=== PATIENT | female | born 1985 | race Two or more races ===

== ENCOUNTER 2024-10-16 14:14 | Inpatient (IN) | payer BC, OTHER ==
[~2024-10-16] VITALS: Ht 162.6 cm; Wt 66.9 kg
[2024-10-16 14:28] VITALS: PULSE 125; RESP 12; O2SAT 97
[2024-10-16] MEDS: SODIUM CHLORIDE 0.9% 1,000 ML IV ONE (14:30)
--- NOTE | 2024-10-16 14:37 | ED.PDOC ---
GI ASSESSMENT HPI Comments abdominal pain Chief Complaint: Shortness of Breath Comments pt has a history of hiatal hernia repair, gastric sleeve done at [facility] 7 years ago. for 1 week, she's had no BM, took laxative, and now has diarrhea. no nausea or vomiting. has abdominal distension and pain Time Seen by MD: 14:17 Reviewed Notes: Nurses Notes, Wallpaper Printer Notes, Medications, Allergies Allergies: Coded Allergies: Doxycycline (Verified Allergy, Unknown, 10/16/24) Information Source: Patient, Emergency Med Personnel Mode of Arrival: EMS Timing: Weeks (1) Quality: Cramping Vomitus: None Stool: Watery Severity: Moderate Recent: Laxative Use Recent Hx of: None Pain Location: Diffuse Modifying Factors: Nothing Associated sign and symptoms: Diarrhea, Constipation, Abdominal Pain Past Medical History PAST MEDICAL HISTORY: Asthma Past Medical History (Other): gastric sleeve, hiatal hernia repair, GBS Surgical History (Other): right knee, gastric sleeve, hiatal hernia [employer] History: No Pertinent [employer] History Family History Family History: Reviewed,noncontributory to illness, No family hx of Cancer, No family hx of DM, No family hx of Heart izabella, No family hx of HTN, No family hx ofKidney izabella, No family hx of Liver izabella, No family hx of Lung izabella, No family hx of Stroke Social History Smoker: Non-Smoker Alcohol: Denies ETOH Use Drugs: Denies Drug Use Constitutional: denies: chills, diaphoresis, fatigue, fever, malaise, sweats, weakness, others EENTM: denies: blurred vision, double vision, ear bleeding, ear discharge, ear drainage, ear pain, ear ringing, eye pain, eye redness, hearing loss, mouth pain, mouth swelling, nasal discharge, nose bleeding, nose congestion, nose pain, photophobia, tearing, throat pain, throat swelling, voice changes, others Respiratory: denies: cough, hemoptysis, orthopnea, SOB at rest, shortness of breath, SOB with excertion, stridor, wheezing, others Cardiovascular: denies: chest pain, dizzy spells, diaphoresis, Dyspnea on exertion, edema, irregular heart beat, left arm pain, lightheadedness, palpitations, PND, syncope, others Gastrointestinal: reports: abdomen distended, abdominal pain, constipated, diarrhea; denies: blood streaked bowels, dysphagia, difficulty swallowing, hematemesis, melena, nausea, poor appetite, poor fluid intake, rectal bleeding, rectal pain, vomiting, others Genitourinary: denies: abnormal vagina bleeding, burning, dyspareunia, dysuria, flank pain, frequency, hematuria, incontinence, pain, , vagina discharge, urgency, others Neurological: denies: dizziness, fainting, headache, left sided numbness, left sided weakness, numbness, paresthesia, pre-existing deficit, right sided numbness, right sided weakness, seizure, speech problems, tingling, tremors, weakness, others Musculoskeletal: denies: back pain, gout, joint pain, joint swelling, muscle pain, muscle stiffness, neck pain, others Integumetry: denies: bruises, change in color, change in hair/nails, dryness, laceration, lesions, lumps, rash, wounds, others Allergic/Immunocompromised: denies: Difficulty Healing, Frequent Infections, Hives, Itching, others Hematologic/Lymphatic: denies: anemia, blood clots, easy bleeding, easy bruising, swollen glands, others Endocrine: denies: excessive hunger, excessive sweating, excessive thirst, excessive urination, flushing, intolerance to cold, intolerance to heat, unexplained weight gain, unexplained weight loss, others Psychiatric: denies: anxiety, bipolar disorder, depression, hopeless, panic disorder, schizophrenia, sleepless, suicidal, others All Other Systems: Reviewed and Negative Physical Exam General Appearance: No Apparent Distress, Normal HEENT: Normal ENT Inspection, Pharynx Normal, TMs Normal Neck: Full Range of Motion, Non-Tender, Normal, Normal Inspection Respiratory: Chest Non-Tender, Lungs Clear, No Accessory Muscle Use, No Respiratory Distress, Normal Breath Sounds Cardiovascular: No Edema, No JVD, No Murmur, No Gallop, Normal Peripheral Pulses, Regular Rate/Rhythm Breast Exam: Deferred Gastrointestinal: Abnormal Bowel Sounds (high pitch BS), Diffuse, Distended, No Organomegaly, No Pulsatile Mass, Soft, Tenderness Genitalia: Deferred Pelvic: Deferred Rectal: Deferred Extremities: No calf tenderness, Normal capillary refill, Normal inspection, Normal range of motion, Non-tender, No pedal edema Musculoskeletal : Apperance: Normal Neurologic: Alert, concrete 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 Was a procedure done?: No GI differential Dx Differential Diagnosis: Appendicitis, Complete , Incomplete , Inevitable , Missed , Threatened , Abruptio placentae, Angina/MN, Aortic dissection, Bowel Obstruction, Cholangitis, Cholecystitis, Constipation, Diverticular disease, Ectopic , Gastritis/PUD, Ga stroenteritis, GI hemorrhage, Hernia, Hepatitis, Inflammatory BD, Ischemic Bowel, Ovarian cyst/torsion, Pancreatitis, Dehydration, Electrolyte Imbalance, Food Poisoning, , Bacterial, Parasitic, Viral, Hypovolemia, Impaction, Malnutrition, Renal Failure, Ischemic Bowel, Stress Ulcer, Kidney Stone X-Ray, Labs, Meds, VS Vital Signs Date Time Temp Pulse Resp B/P (MAP) Pulse Ox O2 Delivery O2 Flow Rate FiO2 10/16/24 17:04 123 12 95/62 10/16/24 15:47 89/47 10/16/24 15:33 111 10/16/24 15:00 97.5 114 13 70/40 (50) 96 97.5 10/16/24 14:28 97.7 125 12 68/38 (48) 97 97.7 10/16/24 14:28 125 12 97 Nasal Cannula* 6 44 10/16/24 14:18 124 10/16/24 14:16 96.7 130 22 54/45 (48) 100 96.7 Lab Test 10/16/24 16:34 10/16/24 14:43 Range/Units Lactic Acid Level 6.6 *H 0.4-2.0 mmol/L White Blood Count 10.8 4.4-10.8 10^3/uL Red Blood Count 3.57 L 4.0-5.20 10^6/uL Hemoglobin 9.9 L 12.2-16.2 g/dL Hematocrit 31.8 L 36.0-46.0 % Mean Corpuscular Volume 89.0 80.0-100.0 fL Mean Corpuscular Hemoglobin 27.8 L 28.0-32.0 pg Mean Corpuscular Hemoglobin Concent 31.3 L 32.0-36.0 g/dL Red Cell Distribution Width 22.3 H 11.8-14.3 % Platelet Count 116 L 140-450 10^3/uL Mean Platelet Volume 7.8 6.9-10.8 fL Neutrophils (%) (Auto) 37.0-80.0 % Lymphocytes (%) (Auto) 10.0-50.0 % Monocytes (%) (Auto) 0.0-12.0 % Basophils (%) (Auto) 0.0-2.0 % Neutrophils # (Auto) 1.6-8.6 10 ^3/uL Lymphocytes # (Auto) 0.4-5.4 10 ^3/uL Monocytes # (Auto) 0-1.3 10 ^3/uL Differential Total Cells Counted 100.0 100 Neutrophils % (Manual) 79 37.0-80.0 Band Neutrophils % (Manual) 12 Lymphocytes % (Manual) 5 L 10.0-50.0 Monocytes % (Manual) 3 0-12 Eosinophils % (Manual) 0 0-7 Basophils % (Manual) 0 0.0-2.0 Metamyelocytes % (manual) 1 Myelocytes % (Manual) 0 Promyelocytes % (Manual) 0 Blast Cells % (Manual) 0 Nucleated Red Blood Cells 1.0 % Reactive Lymphocytes 0 Platelet Estimate Decreased Hypochromasia (manual) Slight Anisocytosis (manual) Moderate Sodium Level 133 L 136-145 mmol/L Potassium Level 3.5 3.5-5.1 mmol/L Chloride Level 101 98-107 mmol/L Carbon Dioxide Level < 10 *L 20-31 mmol/L Anion Gap 22.88859 H 5-15 Blood Urea Nitrogen 31 H 9-23 mg/dL Creatinine 2.38 H 0.550-1.02 mg/dL Glomerular Filtration Rate Calc 26 >90 mL/min BUN/Creatinine Ratio 13.0 10.0-20.0 Serum Glucose 111 H 74-106 mg/dL Calcium Level 7.4 L 8.7-10.4 mg/dL Total Bilirubin 1.4 H 0.2-1.0 mg/dL Aspartate Amino Transferase (AST) 601 H 13-40 U/L Alanine Aminotransferase (ALT) 175 H 7-40 U/L Alkaline Phosphatase 208 H 46-116 U/L Troponin I High Sensitivity 36 *H </=34 ng/L Total Protein 5.4 L 5.7-8.2 g/dL Albumin 3.0 L 3.2-4.8 g/dL Lipase 547 H 12-53 U/L Current Medications Medications (Trade) Dose Ordered Sig/Kelvin Route Start Time Stop Time Status Last Admin Ondansetron HCl (Zofran) 4 mg ONCE ONCE IV 10/16/24 14:45 10/16/24 15:04 DC 10/16/24 15:46 Fentanyl Citrate 12.5 mcg ONCE ONCE IV 10/16/24 14:45 10/16/24 15:04 DC 10/16/24 15:47 Sodium Chloride 1,000 ml @ 1,000 mls/hr Q1H ONCE IV 10/16/24 14:45 10/16/24 15:44 DC 10/16/24 14:30 Acetaminophen (Ofirmev) 1,000 mg ONCE ONCE IV 10/16/24 15:15 10/16/24 15:25 DC 10/16/24 15:29 Calcium Gluconate/ Sodium Chloride 50 ml @ 100 mls/hr ONCE ONCE IV 10/16/24 16:00 10/16/24 16:29 DC 10/16/24 16:00 Lactated Ringer's 1,650 ml @ 1,650 mls/hr ONCE ONCE IV 10/16/24 16:00 10/16/24 16:59 DC 10/16/24 16:15 Metronidazole 100 ml @ 100 mls/hr ONCE ONCE IV 10/16/24 16:00 10/16/24 16:59 DC 10/16/24 17:15 Morphine Sulfate 2 mg ONCE ONCE IV 10/16/24 16:00 10/16/24 16:12 DC 10/16/24 17:04 Time of 1ST Reevaluation: 17:28 Reevaluation 1ST: Improved Time of 2ND Reevaluation: 17:38 Reevaluation 2ND: Improved Patient Education/Counseling: Diagnosis, Treatment, Prognosis, Need For Follow Up Family Education/Counseling: Diagnosis, Treatment, Prognosis, Need For Follow Up Additional Information corrected calcium for albumin is 8.2mg/dl, which is still low, but much better than uncorrected. i will order calcium replacement, as hypocalcemia can worsen hypotension as well Severe sepsis was suspected/recognized at time 0:1416 source of infection recognized/suspected:intraabdominal SIRS:hypotensive, tachycardic, rapid respiration Evidence of organ failure:elevated cr, hypotensive iv fluids given:1650cc LA started at 1650 lactic acid drawn at:1600 antibiotics given at:flagyl, zosyn, vanco 1600 blood culture drawn at:1553 septic shock was/ was not present reassessment at:1705- improved sbp 95. pt responded to IVF Sepsis Sepsis Reasesment Focused Exam Sepsis focused exam: focus exam completed (improved bp), time: (1730) Departure 1 Departure Time of Disposition: 17:40 Impression: Primary Impression: Severe sepsis Additional Impressions: Acalculous cholecystitis Pancreatitis Qualified Codes: K85.10 - Biliary acute pancreatitis without necrosis or infection Acute renal failure Qualified Codes: N17.9 - Acute kidney failure, unspecified Transaminitis Disposition: ADMITTED INPATIENT Admit to: ICU Condition: Serious Discharged With: Self Critical Care Note Critical Care Time?: Yes (55 min-critical care time only) Critical care comment: due to concerns for deterioration of patient's condition, the care required my highest level of attention and readiness. i assessed the patient's condition, reviewed relevant documents, communicated with medical personnel, ordered the proper tests and treatments, reassessed for results and response to treatments, spoke to family and consultants and formulated a plan of care Stability Stability form required: JOSE ANGEL Fontenot MD October 16, 2024 14:37
[2024-10-16 14:54] LABS: Hematocrit 31.8 % (36.0-46.0); Hemoglobin 9.9 g/dL (12.2-16.2); Mean Corpuscular Hemoglobin 27.8 pg (28.0-32.0); Mean Corpuscular Hgb Conc. 31.3 g/dL (32.0-36.0); Platelet Count (auto) 116 10^3/uL (140-450); Red Blood Cells 3.57 10^6/uL (4.0-5.20); White Blood Cell 10.8 10^3/uL (4.4-10.8)
[2024-10-16 14:59] LABS: Red Cell Distribution Width 22.3 % (11.8-14.3)
[2024-10-16 15:01] LABS: Basophils % (manual) 0 (0.0-2.0); Blast Cells 0; Eosinophils % (manual) 0 (0-7); Myelocytes % 0; Promyelocytes % 0; Reactive Lymphocytes 0
[2024-10-16 15:06] LABS: Anion Gap 22.00001 (5-15); Chloride 101 mmol/L (98-107)
[2024-10-16 15:08] LABS: Band Neutrophils % (manual) 12; Lymphocytes % (manual) 5 (10.0-50.0); Metamyelocytes % 1; Monocytes % (manual) 3 (0-12)
[2024-10-16 15:09] LABS: Anisocytosis Moderate; Hypochromia Slight; Platelet Estimate Decreased
[2024-10-16 15:21] LABS: Alanine Aminotransferase 175 U/L (7-40); Alkaline Phosphatase 208 U/L (46-116); Aspartate Aminotransferase 601 U/L (13-40); Bilirubin, Total 1.4 mg/dL (0.2-1.0); Blood Urea Nitrogen 31 mg/dL (9-23); Calcium 7.4 mg/dL (8.7-10.4); Glucose 111 mg/dL (74-106); Potassium 3.5 mmol/L (3.5-5.1); Sodium 133 mmol/L (136-145); Total Protein 5.4 g/dL (5.7-8.2)
[2024-10-16 15:22] LABS: Carbon Dioxide < 10 mmol/L (20-31); Lipase 547 U/L (12-53)
[2024-10-16] MEDS: ACETAMINOPHEN IV 1000 MG/100ML (10MG/ML) IV ONE (15:29)
[2024-10-16] MEDS: ONDANSETRON HCL 4 MG/2 ML VIAL IV ONE ×2 (15:46→16:13)
[2024-10-16] MEDS: fentaNYL CITRATE 100 MCG/2 ML VL IV ONE (15:47)
[2024-10-16] MEDS: CALCIUM GLUC 1,000mg/50ml-NS 50 ML IV ONE (16:00)
[2024-10-16] MEDS: LACTATED RINGER'S 1,650 ML IV ONE (16:15)
[2024-10-16] MEDS ORDERED: VANCOMYCIN PER PHARMACY 0 MG IV SCH (16:30)
--- NOTE | 2024-10-16 16:52 | DVH ---
INDICATION: r/o cholecystitis TECHNIQUE: Multiple real-time sonographic images of the abdomen were obtained. COMPARISON: None Comments: Per boom man, exam is difficult due to patient body habitus and bowel gas. FINDINGS: Liver is homogenous in echogenicity. Normal hepatopetal flow in the portal vein. Trace perihepatic fl uid. The liver measures 19.6 cm. No intrahepatic biliary ductal dilatation is noted. Gallbladder is moderately distended with a volume of 161 mL. Intraluminal echogenicity could be relat ed to artifact or sludge. No evidence of shadowing gallstones. Gallbladder wall thickness is within n ormal limits and measures 2.5 mm. No evidence of pericholecystic fluid. Negative sonographic calderón' s sign. The common duct measures 0.6 cm, upper limits of normal. The right kidney measures 10.1 cm. No hydronephrosis. The left kidney measures 9.6 cm. No hydronephro sis. Small amount of left perinephric fluid. The spleen measures 9 cm, within normal limits. The echogenicity is within normal limits. The pancreas is not well visualized due to obscuration from bowel gas. Aorta and IVC are poorly visualized due to overlying bowel gas. IMPRESSION: 1. Gallbladder is moderately distended with internal sludge and/or artifact. No evidence of cholelit hiasis or cholecystitis. 2. No hydronephrosis. 3. Trace perihepatic and left perinephric fluid, nonspecific. 4. Mild hepatomegaly. 5.
[2024-10-16] MEDS: MORPHINE SULFATE INJ 2 MG/ml SYRG IV ONE ×2 (17:04→22:52)
[2024-10-16 17:14] LABS: Lactic Acid w/Reflex 6.6 mmol/L (0.4-2.0)
[2024-10-16] MEDS: metroNIDAZOLE 500MG/100ML 100 ML IV ONE (17:15)
[2024-10-16] MEDS: PIPERACILLIN-TAZOB 3.375GM 100 ML IV ONE (18:30)
[2024-10-16 19:30] VITALS: PULSE 125; RESP 21; O2SAT 92
[2024-10-16] MEDS: VANCOMYCIN 1GM/200ML PM 200 ML IV ONE (19:44)
[2024-10-16] MEDS: ASPirin 300 MG RECTAL SUPP PR ONE (19:47)
[2024-10-16] MEDS: LACTATED RINGER'S 1,000 ML IV ONE (20:45)
[2024-10-16 21:09] LABS: Chloride 103 mmol/L (98-107); Potassium 3.5 mmol/L (3.5-5.1)
[2024-10-16 21:10] LABS: Anion Gap 15 (5-15)
[2024-10-16 21:13] LABS: Calcium 7.2 mg/dL (8.7-10.4); Carbon Dioxide 14 mmol/L (20-31); Sodium 132 mmol/L (136-145)
[2024-10-16 21:15] LABS: BUN/Creatinine Ratio 13.2 (10.0-20.0); Glucose 98 mg/dL (74-106)
[2024-10-16] MEDS ORDERED: FOLIC ACID 1 MG in D5W 5% 50 ML INJ ONE (21:15)
[2024-10-16 21:21] LABS: Blood Urea Nitrogen 27 mg/dL (9-23)
[2024-10-16 21:34] LABS: INR 1.54 (0.9-1.15); Partial Thromboplastin Time 37.2 SEC (24.5-34.5); Prothrombin Time 15.6 sec (9.3-11.8)
--- NOTE | 2024-10-16 21:54 | DVH ---
Exam: CT CT AB PEL WO CON-NO ORAL OR IV History: r/o sbo Comparison Study: None TECHNIQUE: Multidetector CT of the abdomen was performed from lung bases to pubic symphysis. Imaging was performed without IV contrast. Axial, coronal and sagittal multiplanar reformats were obtained fr om the axial data set by the technologist. Radiation Dose Information: CT Dose: CTDI volume is 10.51 mGy. Dose-length product is 637.27 mGy*cm FINDINGS: Evaluation of solid organs is limited due to lack of intravenous contrast use. Findings: Lung Bases: Airspace disease noted in the posterior costophrenic angles bilaterally with dependent at electasis and small left pleural effusion. Findings are worse on the left than the right. Normal he art size. No pleural or pericardial effusion. Liver: The liver is normal in size. No focal lesions. Pneumobilia in the left lobe of the liver. Ca n not entirely exclude portal air Gallbladder and Biliary Tree: Unremarkable Spleen: Unremarkable Pancreas: Inflammatory changes in the mesenteric fat around the pancreas with thickening of Gerota's fascia on the left. Findings may represent pancreatitis correlate with lab findings. Adrenal Glands: Unremarkable Kidneys: Kidneys are grossly normal without calculi or hydronephrosis. Bladder: Grossly unremarkable for degree of distention. Bowel: The stomach is grossly normal in appearance. Small bowel and colon are normal in caliber and d istribution. Small bowel is of normal size and caliber. There is gaseous distention of the colon with stool noted. A focal point of obstruction in the colon is not apparent. Findings may be due to fecal impaction and stool. The appendix is not visualized; however, no secondary findings of acute appendi citis identified. Ascites: Scattered small amount of ascites Lymphadenopathy: No mesenteric, retroperitoneal or periportal lymphadenopathy. Abdominal Wall and Mesentery: Unremarkable. Vasculature: The visualized abdominal aorta is normal in size and caliber. Evaluation of abdominal a nd pelvic vessels is limited due to lack of intravenous contrast. Pelvic Organs: Unremarkable Musculoskeletal: No aggressive focal bony lesions, acute fractures or dislocation. Soft tissues: Unremarkable IMPRESSION: 1. Questionable peripancreatic inflammatory changes correlate with pancreatic labs for pancreatitis. 2. Small amount of ascites scattered throughout the abdomen and pelvis. 3. Air within the ductal system of the left lobe of the liver may represent pneumobilia from recent b iliary procedure or or possible portal venous air. 4. Questionable pneumocystis coli in the right colon. 5. Stool and gaseous distention of the colon is noted from the cecum to the rectum. A focus of abnorm al narrowing or obstruction is not apparent at this time. Consider barium enema or colonoscopy for fu rther evaluation. 6. Also correlate for possible history of constipation. No findings to suggest small bowel obstruction. Radiation optimization: All CT scans at this facility use at least one of these dose optimization azam hniques: automated exposure control mA and/or kV adjustment per patient size (includes targeted exam s where dose is matched to clinical indication) or iterative reconstruction.
[2024-10-16] MEDS ORDERED: VANCOMYCIN 1GM/200ML PM 200 ML IV SCH (22:00)
[2024-10-16] MEDS ORDERED: PIPERACILLIN-TAZOB 3.375GM 100 ML IV SCH (22:00)
[2024-10-16] MEDS: PIPERACILLIN-TAZOB 3.375GM 100 ML IV SCH (22:13)
[2024-10-16] MEDS: PANTOPRAZOLE 40 MG/10 ML VIAL INJ IV SCH (22:14)
[2024-10-16 22:15] LABS: Alanine Aminotransferase 185 U/L (7-40); Aspartate Aminotransferase 605 U/L (13-40)
[2024-10-16] MEDS: THIAMINE 100mg/ml INJ (200mg/2ml VIAL) IM ONE (22:30)
[2024-10-16 22:32] LABS: Lactic Acid w/Reflex 3.3 mmol/L (0.4-2.0)
[2024-10-16] MEDS: HYDROCORTISONE SOD SUCC 100 MG/2ML INJ VIAL IV ONE (22:41)
[2024-10-16] MEDS ORDERED: MORPHINE SULFATE INJ 2 MG/ml SYRG IV PRN (22:45)
[2024-10-16 23:10] LABS: Triglycerides 856 mg/dL (< 150)
[2024-10-16 23:12] LABS: Cholesterol 127 mg/dL (< 200)
[2024-10-16 23:15] LABS: HDL Cholesterol 6 mg/dL (40-59)
[2024-10-17] VITALS (108 sets, daily range): BP systolic 83–127; BP diastolic 52–84; PULSE 83–134; RESP 15–22; TEMP 98.4–99.5; O2SAT 80–100
[2024-10-17] MEDS: ALBUMIN 25% 100 ML IV ONE (00:10)
[2024-10-17] MEDS: MEROPENEM 1GM IVPB 50 ML IV ONE (00:10)
[2024-10-17] MEDS: LACTATED RINGER'S 1,000 ML IV SCH ×2 (00:31→19:10)
--- NOTE | 2024-10-17 00:33 | DVH ---
CT SCAN CHEST WITHOUT CONTRAST CLINICAL HISTORY: POSS DISEASE IN LUNG BASE TECHNIQUE: Helical axial scans are obtained from the thoracic inlet to the upper abdomen without intr avenous contrast injection. Coronal and sagittal reformatted images were generated from thin-section reconstructions. One or more of the following radiation dose reduction techniques were used for this examination: automated exposure control, adjustment of the mA and/or kV according to patient size, us e of iterative reconstruction technique. COMPARISON: Abdomen and pelvis CT obtained earlier the same day. FINDINGS: Evaluation of vascular and other mediastinal structures is limited due to lack of contrast administra tion. Mediastinum: Heart is normal in size. No mediastinal adenopathy. Trace pericardial fluid / thickening . Lung parenchyma: Dependent atelectasis/ consolidation in the lower lobes. A few scattered air opaciti es in the upper lobe may reflect additional atelectasis/scarring. Pleura: Small bilateral pleural effusions. Chest wall/axillae: No axillary lymphadenopathy noted. IMPRESSION: Small bilateral pleural effusions with dependent atelectasis/consolidation in the lower lobes.
--- NOTE | 2024-10-17 01:13 | DVHINCON2 ---
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 Patient has been taking laxatives for past several days resulting in some diarrhea. She is also on antibiotics currently for respiratory infection. In the emergency room patient was found to be hypotensive with a systolic in the 80s with tachycardia. CT showed possible ischemic bowel therefore surgical consultation was requested. Past Medical History Guillain-Folsom syndrome. Costilla's disease. Hypertension. Asthma. Past Surgical History Laparoscopic hiatal hernia repair. Laparoscopic gastric sleeve. Arthroscopic knee surgery. Family History Noncontributory Social History History of heavy alcohol use now down to two drinks a day. Denies tobacco or IV drug use. Allergies: Coded Allergies: Doxycycline (Verified Allergy, Unknown, 10/16/24) Current Medications Current Medications Medications (Trade) Dose Ordered Sig/Kelvin Route PRN Reason Start Time Stop Time Status Last Admin Vancomycin HCl 200 ml @ 200 mls/hr Q12HR IV 10/16/24 22:00 UNV Piperacillin Sod/ Tazobactam Sod 100 ml @ 25 mls/hr Q8HR IV 10/16/24 22:00 10/16/24 20:47 DC Vancomycin HCl 0 ml @ 0 mls/hr UD IV 10/16/24 16:30 Enoxaparin Sodium (Lovenox) 40 mg DAILY SC 10/17/24 10:00 UNV Piperacillin Sod/ Tazobactam Sod 100 ml @ 25 mls/hr Q8HR IV 10/16/24 22:00 10/16/24 22:40 DC 10/16/24 22:13 Enoxaparin Sodium (Lovenox) 30 mg DAILY SC 10/17/24 10:00 Hydrocortisone Sodium Succinate (Solu-CORTEF INJECTION) 50 mg Q6HR IV 10/17/24 03:00 Pantoprazole Sodium (Protonix) 40 mg DAILY IV 10/16/24 21:00 10/16/24 22:14 Thiamine HCl 100 mg DAILY IV 10/17/24 10:00 Folic Acid 1 mg/ Dextrose 50.2 ml @ 200.8 mls/ hr DAILY INJ 10/17/24 10:00 Morphine Sulfate 2 mg Q2HPRN PRN IV SEVERE PAIN (7-10 PAIN SCALE) 10/16/24 22:45 Meropenem 50 ml @ 17 mls/hr Q8HR IV 10/17/24 06:00 UNV Metronidazole 100 ml @ 100 mls/hr Q8HR IV 10/17/24 06:00 10/17/24 00:10 DC Lactated Ringer's 1,000 ml @ 125 mls/hr Q8H IV 10/16/24 23:45 10/17/24 00:31 Vital Signs Vital Signs Date Time Temp Pulse Resp B/P (MAP) Pulse Ox O2 Delivery O2 Flow Rate FiO2 10/16/24 18:14 119 10/16/24 18:00 14 87/48 (61) 95 10/16/24 15:00 97.5 97.5 10/16/24 14:28 Nasal Cannula* 6 44 Physical Exam GEN: Age-appropriate female thickening sickly but at alert and oriented. HEENT: Normocephalic atraumatic. Moist mucous membranes. Anicteric sclerae. CV: Tachycardic but regular rhythm Respiratory: Coarse breath sounds Abdominal exam: Distended abdomen with diffuse tenderness to palpation with guarding and rebound. CT of the abdomen and pelvis: Questionable peripancreatic inflammatory changes. Small amount of ascites. Air within the ductal system of the left lobe of the liver consistent with pneumobilia. Questionable pneumatosis coli in the right colon. Stool and gaseous distention of the colon from cecum to the rectum. Labs/Diagnostic Data Labs Test 10/16/24 22:38 10/16/24 20:48 10/16/24 14:43 Range/Units Lactic Acid Level 2.3 *H 0.4-2.0 mmol/L Triglycerides Level 856 H < 150 mg/dL Cholesterol Level 127 < 200 mg/dL LDL Cholesterol < 100 mg/dL HDL Cholesterol 6 L 40-59 mg/dL Prothrombin Time 15.6 H 9.3-11.8 sec Prothrombin Time INR 1.54 H 0.9-1.15 Activated Partial Thromboplast Time 37.2 H 24.5-34.5 SEC Sodium Level 132 L 136-145 mmol/L Potassium Level 3.5 3.5-5.1 mmol/L Chloride Level 103 98-107 mmol/L Carbon Dioxide Level 14 L 20-31 mmol/L Anion Gap 15 5-15 Blood Urea Nitrogen 27 H 9-23 mg/dL Creatinine 2.05 H 0.550-1.02 mg/dL Glomerular Filtration Rate Calc 31 >90 mL/min BUN/Creatinine Ratio 13.2 10.0-20.0 Serum Glucose 98 74-106 mg/dL Calcium Level 7.2 L 8.7-10.4 mg/dL Iron Level 9 L 50-170 ug/dL Total Iron Binding Capacity 303 250-425 ug/dL Percent Iron Saturation 3.0 L 15-50 % Ferritin 127.5 10-291 ng/mL Gamma Glutamyl Transpeptidase 1044 H <38 U/L Aspartate Amino Transferase (AST) 605 H 13-40 U/L Alanine Aminotransferase (ALT) 185 H 7-40 U/L Ammonia < 10 L 11-32 umol/L Troponin I High Sensitivity 134 *H </=34 ng/L C-Reactive Protein High Sensitivity 14.06 H <1.0 mg/dL Acetaminophen Level 10.0 10.0-20.0 UG/ML White Blood Count 10.8 4.4-10.8 10^3/uL Red Blood Count 3.57 L 4.0-5.20 10^6/uL Hemoglobin 9.9 L 12.2-16.2 g/dL Hematocrit 31.8 L 36.0-46.0 % Mean Corpuscular Volume 89.0 80.0-100.0 fL Mean Corpuscular Hemoglobin 27.8 L 28.0-32.0 pg Mean Corpuscular Hemoglobin Concent 31.3 L 32.0-36.0 g/dL Red Cell Distribution Width 22.3 H 11.8-14.3 % Platelet Count 116 L 140-450 10^3/uL Mean Platelet Volume 7.8 6.9-10.8 fL Neutrophils (%) (Auto) 37.0-80.0 % Lymphocytes (%) (Auto) 10.0-50.0 % Monocytes (%) (Auto) 0.0-12.0 % Basophils (%) (Auto) 0.0-2.0 % Neutrophils # (Auto) 1.6-8.6 10 ^3/uL Lymphocytes # (Auto) 0.4-5.4 10 ^3/uL Monocytes # (Auto) 0-1.3 10 ^3/uL Differential Total Cells Counted 100.0 100 Neutrophils % (Manual) 79 37.0-80.0 Band Neutrophils % (Manual) 12 Lymphocytes % (Manual) 5 L 10.0-50.0 Monocytes % (Manual) 3 0-12 Eosinophils % (Manual) 0 0-7 Basophils % (Manual) 0 0.0-2.0 Metamyelocytes % (manual) 1 Myelocytes % (Manual) 0 Promyelocytes % (Manual) 0 Blast Cells % (Manual) 0 Nucleated Red Blood Cells 1.0 % Reactive Lymphocytes 0 Platelet Estimate Decreased Hypochromasia (manual) Slight Anisocytosis (manual) Moderate Total Bilirubin 1.4 H 0.2-1.0 mg/dL Alkaline Phosphatase 208 H 46-116 U/L B-Type Natriuretic Peptide 7.91 0-100 pg/mL Total Protein 5.4 L 5.7-8.2 g/dL Albumin 3.0 L 3.2-4.8 g/dL Lipase 547 H 12-53 U/L Beta-Hydroxybutyric Acid 0.197 < 0.4 mmol/L Thyroid Stimulating Hormone (TSH) 4.18 0.55-4.78 uIU/mL Beta HCG, Quantitative 1.3 L 1.5-4.2 mIU/mL Plasma/Serum Blood Alcohol < 3.0 <10 mg/dL Assessment 1. Septic shock likely secondary to ischemic bowel 2. MORA Plan/Recommendation 1. Expiratory laparotomy with possible bowel resection possible colostomy/ileostomy Informed consent: The surgery and its risks including but not limited to infection, bleeding requiring possible blood transfusion with the risk of hepatitis or HIV infection, possible perioperative MA or stroke were explained to the patient and her . All questions were answered to their satisfaction. She expressed verbal understanding and wished to proceed with the surgery. Plan discussed with: Patient, Spouse MIRIAM ARCHIBALD MD October 17, 2024 01:13
--- NOTE | 2024-10-17 01:22 | DVHHP2 ---
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 She presented with 4-day history of constipation and abdominal pain, followed by diarrhea after taking laxatives. She also reported respiratory symptoms during this time. On presentation, she was tachycardic, hypoxemic, hypotensive (SBP in the 80s), and had signs of abdominal distension with diffuse tenderness. CT abdomen/pelvis revealed pneumatosis coli, pneumobilia, severely dilated colonic loops, and concern for colonic ischemia. Dr. Monroy was consulted and evaluated the patient at bedside around midnight. Emergency surgery was performed, including exploratory laparotomy with right hemicolectomy and ileostomy. She was transferred to the ICU postoperatively. 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) Asthma Hypertension Alcohol overuse Opioid overuse Hypertriglyceridemia Past Surgical History: Hiatal hernia repair Laparoscopic gastric sleeve Multiple spine surgeries Arthroscopic knee surgery Social History: Former heavy alcohol use, currently ~2 drinks/day Denies tobacco or IV drug use Labs: Lactic Acid: 2.3 mmol/L AST: 605, ALT: 1185, ALP: 208, GGT: 1044 Lipase: 138 CRP: 14.06 Troponin I: 134 Sodium: 132, CO2: 14, Anion gap: 15 Creatinine: 2.05, BUN: 27 Albumin: 3.0, Calcium: 7.2 CT Imaging: Pneumobilia, pneumatosis coli in the right colon, gaseous and stool distention throughout colon Small ascites, peripancreatic inflammation Review of Systems Review of Systems see HPI Allergies: Coded Allergies: Doxycycline (Verified Allergy, Unknown, 10/16/24) Medications Current Medications Medications Dose Ordered Sig/Kelvin Route Start Time Stop Time Status Last Admin Dose Admin Vancomycin HCl 200 ml @ 200 mls/hr Q12HR IV 10/16/24 22:00 UNV Vancomycin HCl 0 ml @ 0 mls/hr UD IV 10/16/24 16:30 Enoxaparin Sodium 40 mg DAILY SC 10/17/24 10:00 UNV Enoxaparin Sodium 30 mg DAILY SC 10/17/24 10:00 Hydrocortisone Sodium Succinate 50 mg Q6HR IV 10/17/24 03:00 Pantoprazole Sodium 40 mg DAILY IV 10/16/24 21:00 10/16/24 22:14 40 MG Thiamine HCl 100 mg DAILY IV 10/17/24 10:00 Folic Acid 1 mg/ Dextrose 50.2 ml @ 200.8 mls/ hr DAILY INJ 10/17/24 10:00 Morphine Sulfate 2 mg Q2HPRN PRN IV 10/16/24 22:45 Meropenem 50 ml @ 17 mls/hr Q8HR IV 10/17/24 06:00 UNV Lactated Ringer's 1,000 ml @ 125 mls/hr Q8H IV 10/16/24 23:45 10/17/24 00:31 125 MLS/HR Norepinephrine Bitartrate 250 ml @ 3.75 mls/hr Q24H IV 10/17/24 01:15 Exam Vital Signs Vital Signs Date Time Temp Pulse Resp B/P (MAP) Pulse Ox O2 Delivery O2 Flow Rate FiO2 10/16/24 18:14 119 10/16/24 18:00 14 87/48 (61) 95 10/16/24 15:00 97.5 97.5 10/16/24 14:28 Nasal Cannula* 6 44 Exam GEN: Alert, oriented, and sickly-appearing HEENT: Moist mucosa, anicteric sclerae CV: Tachycardic, regular rhythm Resp: Coarse breath sounds Abdomen: Distended, diffuse tenderness, guarding, rebound Labs/Xrays Labs Test 10/16/24 22:38 10/16/24 20:48 10/16/24 14:43 Range/Units Lactic Acid Level 2.3 *H 0.4-2.0 mmol/L Triglycerides Level 856 H < 150 mg/dL Cholesterol Level 127 < 200 mg/dL LDL Cholesterol < 100 mg/dL HDL Cholesterol 6 L 40-59 mg/dL Prothrombin Time 15.6 H 9.3-11.8 sec Prothrombin Time INR 1.54 H 0.9-1.15 Activated Partial Thromboplast Time 37.2 H 24.5-34.5 SEC Sodium Level 132 L 136-145 mmol/L Potassium Level 3.5 3.5-5.1 mmol/L Chloride Level 103 98-107 mmol/L Carbon Dioxide Level 14 L 20-31 mmol/L Anion Gap 15 5-15 Blood Urea Nitrogen 27 H 9-23 mg/dL Creatinine 2.05 H 0.550-1.02 mg/dL Glomerular Filtration Rate Calc 31 >90 mL/min BUN/Creatinine Ratio 13.2 10.0-20.0 Serum Glucose 98 74-106 mg/dL Calcium Level 7.2 L 8.7-10.4 mg/dL Iron Level 9 L 50-170 ug/dL Total Iron Binding Capacity 303 250-425 ug/dL Percent Iron Saturation 3.0 L 15-50 % Ferritin 127.5 10-291 ng/mL Gamma Glutamyl Transpeptidase 1044 H <38 U/L Aspartate Amino Transferase (AST) 605 H 13-40 U/L Alanine Aminotransferase (ALT) 185 H 7-40 U/L Ammonia < 10 L 11-32 umol/L Troponin I High Sensitivity 134 *H </=34 ng/L C-Reactive Protein High Sensitivity 14.06 H <1.0 mg/dL Acetaminophen Level 10.0 10.0-20.0 UG/ML White Blood Count 10.8 4.4-10.8 10^3/uL Red Blood Count 3.57 L 4.0-5.20 10^6/uL Hemoglobin 9.9 L 12.2-16.2 g/dL Hematocrit 31.8 L 36.0-46.0 % Mean Corpuscular Volume 89.0 80.0-100.0 fL Mean Corpuscular Hemoglobin 27.8 L 28.0-32.0 pg Mean Corpuscular Hemoglobin Concent 31.3 L 32.0-36.0 g/dL Red Cell Distribution Width 22.3 H 11.8-14.3 % Platelet Count 116 L 140-450 10^3/uL Mean Platelet Volume 7.8 6.9-10.8 fL Neutrophils (%) (Auto) 37.0-80.0 % Lymphocytes (%) (Auto) 10.0-50.0 % Monocytes (%) (Auto) 0.0-12.0 % Basophils (%) (Auto) 0.0-2.0 % Neutrophils # (Auto) 1.6-8.6 10 ^3/uL Lymphocytes # (Auto) 0.4-5.4 10 ^3/uL Monocytes # (Auto) 0-1.3 10 ^3/uL Differential Total Cells Counted 100.0 100 Neutrophils % (Manual) 79 37.0-80.0 Band Neutrophils % (Manual) 12 Lymphocytes % (Manual) 5 L 10.0-50.0 Monocytes % (Manual) 3 0-12 Eosinophils % (Manual) 0 0-7 Basophils % (Manual) 0 0.0-2.0 Metamyelocytes % (manual) 1 Myelocytes % (Manual) 0 Promyelocytes % (Manual) 0 Blast Cells % (Manual) 0 Nucleated Red Blood Cells 1.0 % Reactive Lymphocytes 0 Platelet Estimate Decreased Hypochromasia (manual) Slight Anisocytosis (manual) Moderate Total Bilirubin 1.4 H 0.2-1.0 mg/dL Alkaline Phosphatase 208 H 46-116 U/L B-Type Natriuretic Peptide 7.91 0-100 pg/mL Total Protein 5.4 L 5.7-8.2 g/dL Albumin 3.0 L 3.2-4.8 g/dL Lipase 547 H 12-53 U/L Beta-Hydroxybutyric Acid 0.197 < 0.4 mmol/L Thyroid Stimulating Hormone (TSH) 4.18 0.55-4.78 uIU/mL Beta HCG, Quantitative 1.3 L 1.5-4.2 mIU/mL Plasma/Serum Blood Alcohol < 3.0 <10 mg/dL Assessment/Plan Assessment/Plan #s/p right hemicolectomy + ileostomy #Toxic Megacolon #Sepsis due to colonic ischemia #Acute respiratory failure #Colonic ischemia #Stercoral colitis #Pancreatitis #Pneumobilia #Pneumonia? #Acute alcoholic hepatitis #Anemia #Metabolic acidosis: lactic acidosis #MORA due to VMN #Transaminitis #NSTEMI type 2 #Hypertriglyceridemia Hypocalcemia #Opioid overuse #Alcohol abuse #Louisa disease: chronic steroid use #H/ GBS #H/ Hypertension #H/ multiple spine surgeries Admit ICU status Urgent surgery consult: patient was taken to the OR by Dr Monroy: right hemicolectomy + ileostomy NPO LR 125 CC/H NG tube Levophed to maintain MAP above 65 Meropenem IV Morphine IV NG tube Hydrocortisone 100 mg once, continue 50 mg q6H Protonix IV Calcium IV given by ED Case discussed with Dr Sweeney Full code Plan discussed with: Patient, Other (rn) My Orders Orders - ESTELA SIDDIQUI RESIDENT Procedure Category Date Status Time Admit ADMIT 10/16/24 Transmitted 20:35 Code Status CODE 5/18/25 Transmitted 20:35 Vital Signs KIRA 10/16/24 In Process 20:35 Review Orders With KIRA 10/16/24 In Process Adm. 20:35 Npo (Nothing By DIET 10/17/24 Transmitted Mouth) Diet Breakfast Notify Of Changes KIRA 10/16/24 In Process From Base 20:35 Advance Directive KRIA 10/16/24 In Process 20:35 Patient Condition ORDERS 10/16/24 Transmitted 20:35 Allergies KIRA 10/16/24 In Process 20:35 Echo 2d Mode Cardiac US 10/16/24 Logged DOP 20:38 Urinalysis LAB 10/16/24 Logged 20:38 Drug Screen LAB 10/16/24 Logged 20:38 Urine Creatinine LAB 10/16/24 Logged 20:38 Urine Protein LAB 10/16/24 Logged 20:38 Urine Sodium LAB 10/16/24 Logged 20:38 Acute Hepatitis Panel LAB 10/16/24 In Process 20:39 Enoxaparin Sodium PHA 10/17/24 In Process (Lovenox) 10:00 Hydrocortisone PHA 10/17/24 In Process Succinate Inj 03:00 Pantoprazole PHA 10/16/24 In Process (Protonix) 21:00 Covid19 Antigen Eunice LAB 10/16/24 Logged Rapid Influenza A&B LAB 10/16/24 Logged 21:[address] 10/16/24 Resulted 22:01 * Surgical Consult CONS 10/16/24 Transmitted Morphine Sulfate PHA 10/16/24 In Process Injection 22:45 Meropenem 1gm Ivpb PHA 10/17/24 Pending (Merrem 1gm/ Ns) 06:00 Urine Bacterial MAGALY 10/16/24 Logged Culture 22:53 Lactated Ringer's PHA 10/16/24 In Process 23:45 Lipid Panel LAB 10/18/24 Verified 04:00 Folic Acid PHA 10/17/24 In Process 07:00 Norepinephrine 8 PHA 10/17/24 In Process Mg/250ml Kit 01:15 Ngt/Ogt ED NURSING 10/17/24 Transmitted Packedcell-Noactive BBK 10/17/24 Logged Bleeding 01:17 Frozen Plasma BBK 10/17/24 Logged 01:17 Type And Screen BBK 10/17/24 Logged 01:17 Date of Service: October 16, 2024 Billing Provider: FABIOLA SWEENEY MD Common Visit Codes: 24831-MVXPDMG INP/OBS CARE (HIGH), 25312-QGCLMTPW CARE 30- 74 MIN Secondary Visit Codes: 06122-[id number] CARE PLAN 30 MINUTES ESTELA SIDDIQUI RESIDENT October 17, 2024 01:22
[2024-10-17] MEDS ORDERED: MIDAZOLAM HCL 2MG/2ML 2ml VIAL (1mg/ml) ONE ×2 (01:31→03:33)
[2024-10-17] MEDS ORDERED: ONDANSETRON HCL 4 MG/2 ML VIAL ONE (01:31)
[2024-10-17] MEDS ORDERED: fentaNYL CITRATE 100 MCG/2 ML VL ONE ×2 (01:31→02:41)
[2024-10-17] MEDS ORDERED: ETOMIDATE (2MG/ML) 20ML VIAL IV ONE (01:31)
[2024-10-17] MEDS ORDERED: GLYCOPYRROLATE 0.2 MG/ML 1ML VIAL ONE (01:31)
[2024-10-17] MEDS ORDERED: LIDOCAINE 2% (LOCAL ANESTH.) PF 5ml SDV ONE (01:31)
[2024-10-17] MEDS ORDERED: PHENYLEPHRINE HCL 10 MG/ML VL ONE (01:31)
[2024-10-17] MEDS ORDERED: HYDROmorphone HCL 2 MG/ML VL/or syr ONE ×2 (01:31→03:54)
[2024-10-17] MEDS ORDERED: HYDROCORTISONE SOD SUCC 100 MG/2ML INJ VIAL ONE (01:31)
[2024-10-17] MEDS ORDERED: ePHEDrine SULFATE 50 MG/ML AMP ONE (01:31)
[2024-10-17] MEDS ORDERED: KETAMINE 50mg/ML 1ml syringe ONE ×2 (01:32→03:43)
[2024-10-17] MEDS ORDERED: ROCURONIUM 10MG/ML 10ML VIAL IV ONE (01:32)
[2024-10-17 01:39] LABS: Urine Bacteria None Seen /hpf (None Seen)
[2024-10-17] MEDS: SODIUM CHLORIDE 0.9% 1,000 ML IV ONE ×2 (01:42→12:54)
[2024-10-17 01:55] LABS: Urine Blood 2+ /uL (Negative); Urine Clarity Clear (Clear); Urine Color Yellow (Yellow); Urine Hyaline Cast FEW /lpf (0 - 2); Urine Mucus FEW (None Seen); Urine Protein, UAD 1+ (Negative); Urine Specific Gravity 1.027 (1.001-1.035); Urine Squamous Epithelial Cell FEW /hpf (<5); Urine Urobilinogen Normal (Negative); Urine WBC < 1 /HPF (0-5); Urine pH 5.5 (5.0-9.0)
[2024-10-17 01:58] LABS: Protein, Urine 114.1 mg/dL (1-14)
[2024-10-17 02:00] LABS: Phencyclidine Screen, Urine Neg (NEGATIVE)
[2024-10-17 02:01] LABS: Creatinine, Urine 87.6 mg/dL (30.0-125.0)
[2024-10-17 02:03] LABS: Amphetamine Screen, Urine Neg (NEGATIVE); Barbiturate Scree,Urine Neg (NEGATIVE); Benzodiazephine Screen, Urine Neg (NEGATIVE); Cannabinoid Screen, Urine Neg (NEGATIVE); Cocaine Screen, Urine Neg (NEGATIVE); Opiate Scree,Urine Pos (NEGATIVE)
[2024-10-17] MEDS: HYDROCORTISONE SOD SUCC 100 MG/2ML INJ VIAL IV SCH (03:00)
--- NOTE | 2024-10-17 04:21 | DVHOP2 ---
Operative Report - 2 Report Details Date: 10/17/24 Preop Diagnosis: 1. Septic shock secondary to ischemic bowel Postop Diagnosis: 1. Septic shock from toxic megacolon Surgeon: Miriam Monroy MD Motion Picture Projectionist Apprentice: None Anesthesiologist: Dr. Todd Anesthesia: General Drains: 15 Japanese Marco drain Consent: The surgery and its risks including but not limited to infection, bleeding requiring possible blood transfusion with the risk of hepatitis or HIV infection, possible perioperative AL or stroke, possible ostomy were explained to the patient and her . All questions were answered to their satisfaction. She expressed verbal understanding and wished to proceed with the surgery. Complications: None Estimated Blood Loss: 100 mL Fluids: 4500 mL Name of Procedure Performed Expiratory laparotomy with right hemicolectomy with ileostomy Procedure Details Procedure Details: After induction of general anesthesia, patient's abdomen was prepped and draped in standard surgical fashion. A midline incision was made which was taken through the abdominal wall down to the fascia which was opened in midline. Peritoneum was then divided and immediately there was semi purulent fluid that was drained from the abdominal cavity. This ascites was then swabbed for Gram stain and culture and aspirated away. There was diffuse distention of the right colon with discoloration secondary to ischemic bowel. It was most prominent in the cecum however extended through to the mid transverse colon. Right colon was then mobilized by taking down the white line of Toldt laterally. I was was mobilized the hepatic flexure was then taken down and the dissection proceeded more distally to the distal transverse colon by taking down the gastrocolic ligament. Distal transverse colon was then divided using 75 mm RONAK stapler. The mesocolon was then divided proximally using LigaSure impact. The terminal ileum was stapled and divided using a 75 mm RNOAK stapler. The entire right colon was then removed and sent off to pathology. The left colon was examined and appeared viable and healthy. There was no obvious obstruction distally. Abdominal cavity was then irrigated with 5 L of warm irrigation. A 15 Japanese Marco drain was placed into the pelvis and brought through a separate stab incision in the left lower quadrant and secured to the skin using 3-0 nylon sutures. A small circular incision was made in the right lower quadrant for the ileostomy site. A incision was then extended through the abdominal wall down to the fascia and a cruciate incision was made big enough to fit to my fingers e asily. The terminal ileal stump which appeared viable was then gently pushed through this opening without twisting of the mesentery. The midline fascia was then closed using running looped 0 PDS sutures. Surgical site was well irrigated and skin incision was then closed using ondina. Ileostomy was then matured by taking down the staple line. The mucosa appeared viable although the mendoza were slightly edematous. The ileostomy was then matured using 2-0 and 3-0 Vicryl sutures. The lumen was then gently explored and there was no narrowing at the fascial level. Surgical site was cleaned and dried and dressings were applied. Sponge, needle, instrument count at the end of the case were reported to be correct by the nursing staff. The patient remained critical throughout the surgery. Her initial systolic blood pressure was in the 80s at the start of the surgery however with fluid resuscitation it neil to the 90s. However she remained tachycardic throughout her surgery. We decided to keep the patient in tubated and transferred to the ICU in critical condition. Specimen: Right colon Condition Critical Disposition Still a Patient MIRIAM MONROY MD October 17, 2024 04:21
[2024-10-17] MEDS: MIDAZOLAM DRIP 50 mg/50mL 50 ML IV SCH (04:57)
[2024-10-17] MEDS: fentaNYL Drip 2500mCg/250mlNS 250 ML IV SCH (04:58)
[2024-10-17 05:09] LABS: Base Excess -12.3 mmol/L (-2.0-3.0)
[2024-10-17] MEDS: SODIUM BICARB 8.4% 50Meq/50ml SYR Vial IV ONE (05:13)
[2024-10-17] MEDS ORDERED: PIPERACILLIN-TAZOB 3.375GM 100 ML IV SCH (06:00)
[2024-10-17] MEDS ORDERED: metroNIDAZOLE 500MG/100ML 100 ML IV SCH (06:00)
[2024-10-17 06:07] LABS: Basophils # (auto) 0 10 ^3/uL (0-0.2); Basophils % (auto) 0.3 % (0.0-2.0); Eosinophils # (auto) 0.1 10 ^3/uL (0-0.8); Eosinophils % (auto) 1.1 % (0.0-7.0); Hematocrit 28.8 % (36.0-46.0); Hemoglobin 9.3 g/dL (12.2-16.2); Lymphocytes # (auto) 0.2 10 ^3/uL (0.4-5.4); Mean Corpuscular Hemoglobin 27.8 pg (28.0-32.0); Mean Corpuscular Hgb Conc. 32.2 g/dL (32.0-36.0); Mean Corpuscular Volume 86.2 fL (80.0-100.0); Monocytes # (auto) 0.2 10 ^3/uL (0-1.3); Monocytes % (auto) 3.4 % (0.0-12.0); Neutrophils # (auto) 5.5 10 ^3/uL (1.6-8.6); Neutrophils % (auto) 92.2 % (37.0-80.0); Nucleated Red Blood Cells % 0.2 %; Platelet Count (auto) 69 10^3/uL (140-450); Red Blood Cells 3.34 10^6/uL (4.0-5.20); White Blood Cell 5.9 10^3/uL (4.4-10.8)
[2024-10-17 06:24] LABS: Alanine Aminotransferase 99 U/L (7-40); Albumin 2.3 g/dL (3.2-4.8); Alkaline Phosphatase 134 U/L (46-116); Anion Gap 11 (5-15); Aspartate Aminotransferase 270 U/L (13-40); BUN/Creatinine Ratio 17.1 (10.0-20.0); Blood Urea Nitrogen 21 mg/dL (9-23); Calcium 7.5 mg/dL (8.7-10.4); Carbon Dioxide 25 mmol/L (20-31); Chloride 109 mmol/L (98-107); Glucose 101 mg/dL (74-106); Potassium 4.1 mmol/L (3.5-5.1); Sodium 145 mmol/L (136-145); Total Protein 3.9 g/dL (5.7-8.2)
[2024-10-17 06:31] LABS: Partial Thromboplastin Time 42.7 SEC (24.5-34.5); Prothrombin Time 19.8 sec (9.3-11.8)
--- NOTE | 2024-10-17 06:39 | DVH ---
EXAM: XR Chest, 1 View CLINICAL INDICATION: ett TECHNIQUE: Frontal view of the chest. COMPARISON: None FINDINGS: LUNGS AND PLEURAL SPACES: Bibasilar atelectasis or pneumonia. No pneumothorax. HEART: Unremarkable. No cardiomegaly. MEDIASTINUM: Unremarkable. Normal mediastinal contour. BONES/JOINTS: Unremarkable. No acute fracture. TUBES, LINES AND DEVICES: The endotracheal tube (ETT) is in satisfactory position. Enteric tube ti p in the stomach. OTHER FINDINGS: . . . IMPRESSION: Bibasilar atelectasis or pneumonia.
[2024-10-17] MEDS: fentaNYL Drip 2500mCg/250mlNS 250 ML IV ONE (07:00)
[2024-10-17] MEDS: NOREPINEPHRINE 8 MG/250ML KIT 250 ML IV ONE (07:00)
[2024-10-17] MEDS: SODIUM BICARB 8.4% 50Meq/50ml SYR INJ ONE ×2 (07:00)
[2024-10-17] MEDS: MIDAZOLAM DRIP 50 mg/50mL 50 ML IV ONE (07:00)
[2024-10-17] MEDS: NOREPINEPHRINE 8 MG/250ML KIT 250 ML IV SCH (07:26)
[2024-10-17] MEDS ORDERED: VANCOMYCIN PER PHARMACY 0 MG IV SCH (07:30)
[2024-10-17 08:21] LABS: Bilirubin, Total 1.2 mg/dL (0.2-1.0)
[2024-10-17 08:54] LABS: COVID19 ANTIGEN SOFIA FIA NEGATIVE (NEGATIVE)
[2024-10-17 08:55] LABS: Rapid Influenza A Negative (Negative)
[2024-10-17 08:58] LABS: Rapid Influenza B Positive (Negative)
[2024-10-17] MEDS: phytonadione 10 MG in SODIUM CHL 0.9% 50 ML IV ONE (09:21)
[2024-10-17] MEDS: FOLIC ACID 1 MG in D5W 5% 50 ML INJ ONE (09:44)
[2024-10-17 09:46] LABS: Base Excess -5.4 mmol/L (-2.0-3.0)
[2024-10-17] MEDS: FOLIC ACID 1 MG in D5W 5% 50 ML INJ SCH (09:50)
[2024-10-17] MEDS ORDERED: ENOXAPARIN SOD 30 MG/0.3 ML SYRINGE SC SCH (10:00)
[2024-10-17] MEDS ORDERED: ENOXAPARIN SOD 40 MG/0.4 ML SYRINGE SC SCH ×2 (10:00)
[2024-10-17] MEDS: MEROPENEM 1GM IVPB 50 ML IV SCH (10:15)
--- NOTE | 2024-10-17 11:00 | DVHPN2 ---
Progress Note - Dictate Date Seen: October 17, 2024 Medical Necessity Reason Pt with a Central, PICC or Fol: Yes Subjective E: central line placed. levophed at 12 mcg. intubated/sedated. vital signs Vital Sign Date Time Temp Pulse Resp B/P (MAP) Pulse Ox O2 Delivery O2 Flow Rate FiO2 10/17/24 10:48 99.2 115 18 103/63 99.2 10/17/24 08:25 100 30 10/17/24 06:38 Mechanical Ventilator+ 10/16/24 19:30 2 Total Intake and Output 10/16/24 10/16/24 10/17/24 15:00 23:00 07:00 Intake Total 3106 ml 1695.0 ml Output Total 1075 ml Balance 3106 ml 620.0 ml medications Current Medications Medications Dose Ordered Sig/Kelvin Route Start Time Stop Time Status Last Admin Dose Admin Vancomycin HCl 200 ml @ 200 mls/hr Q12HR IV 10/16/24 22:00 UNV Enoxaparin Sodium 40 mg DAILY SC 10/17/24 10:00 UNV Hydrocortisone Sodium Succinate 50 mg Q6HR IV 10/17/24 03:00 Pantoprazole Sodium 40 mg DAILY IV 10/16/24 21:00 10/16/24 22:14 40 MG Thiamine HCl 100 mg DAILY IV 10/17/24 10:00 Folic Acid 1 mg/ Dextrose 50.2 ml @ 200.8 mls/ hr DAILY INJ 10/17/24 10:00 10/17/24 09:50 200.8 MLS/HR Meropenem 50 ml @ 17 mls/hr Q8HR IV 10/17/24 06:00 10/17/24 10:15 17 MLS/HR Lactated Ringer's 1,000 ml @ 125 mls/hr Q8H IV 10/16/24 23:45 10/17/24 05:03 125 MLS/HR Norepinephrine Bitartrate 250 ml @ 3.75 mls/hr Q24H IV 10/17/24 01:15 10/17/24 07:26 3.75 MLS/HR Midazolam HCl 50 ml @ 1 mls/hr Q24H IV 10/17/24 04:45 10/17/24 09:31 10 MLS/HR Fentanyl Citrate 250 ml @ 2.5 mls/hr Q24H IV 10/17/24 04:45 10/17/24 04:58 2.5 MLS/HR Vancomycin HCl 0 ml @ 0 mls/hr UD IV 10/17/24 07:30 Enoxaparin Sodium 40 mg DAILY SC 10/17/24 10:00 Hold Vancomycin HCl 150 ml @ 150 mls/hr Q12HR IV 10/17/24 10:15 objective GEN: intubated/sedated. ABD: dressings clean and dry. RUPERT with serosang 50 mL this AM. laboratory and microbiology Laboratory Tests 10/17/24 05:47 Test 10/17/24 05:47 Range/Units Serum Glucose 101 74-106 mg/dL Assessment/Plan A: 1. s/p ex lap with right colectomy POD #0 for ischemic colitis 2. MORA with improving UOP 3. resp failure/PNA 4. thrombocytopenia 5. shocked liver P: 1. FFP pending 2. PLT transfusion Plan discussed with: Patient MIRIAM ARCHIBALD MD October 17, 2024 11:00
[2024-10-17 11:01] LABS: Hepatitis A Ab IgM Negative; Hepatitis B Core IgM Negative (Negative); Hepatitis B Surface Antigen Negative (Negative); Hepatitis C Antibody Negative (Negative)
--- NOTE | 2024-10-17 11:20 | DVHNC2 ---
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 assembler: Other (resident) Indication: Hypotension, CVP monitoring, Volume resuscitation Room prepared for procedure: Yes Flatwork Finisher Hand performed hand hygien: Yes Maximal sterile barrier precau: Mask/Eye shield, Sterile gown, Cap, Sterlie gloves, Large sterlie drape Skin Preparation: Chlorhexidine gluconate Skin preparation completely dr: Yes Insertion site: Right, Internal jugular, Line secured Central line catheter type: Yov-aemeaplw-[id number] dialysis Number of lumens: 3 Central line exchanged over a: No Antiseptic ointment applied to: Yes Post Assessment: Chest X-Ray, No Pneumothorax Informed consent obtained: Yes Risks/benefits/alt described: Yes UTO Consent Procedure note: A time out was performed. My hands were washed immediately prior to the procedure. I wore a surgical cap, mask with protective eyewear, full gown and sterile gloves throughout the procedure. The patient was placed in Trendelenburg position. RIGHT chest region was prepped using chlorhexidine scrub and draped in sterile fashion using a full drape and sterile probe cover and sterile gel employed. The medial and lateral heads of the sternocleidomastoid muscle were identified as was the carotid pulse. The Internal Jugular vein was identified using the ultrasound. Anesthesia was achieved over the vein using 1% lidocaine. Using real-time out of plane g uidance, the introducer needle was inserted into the Internal Jugular vein under direct ultrasound visualization. Venous blood was withdrawn. The syringe was removed and a guidewire was advanced into the introducer needle. The guidewire was visualized in the Internal Jugular Vein by ultrasound. A small incision was made at the skin surface with a scalpel and the introducer needle was exchanged for a dilator over the guidewire. After appropriate dilation was obtained, the dilator was exchanged over the wire for a central venous catheter. The wire was removed and the catheter was sutured in place at [address] A sterile sorbaview shield was placed over the catheter at the insertion site. The patient tolerated the procedure without any hemodynamic compromise. At time of procedure completion, all ports aspirated and flushed properly. Post-procedure chest x-ray exclude pneumothorax. Estimated blood loss is less than 5 ml. Tools And Parts Attendant: Dr. Higgins Date of Service: October 17, 2024 Billing Provider: NGOC HIGGINS MD Common Visit Codes: PROCEDURE ONLY Procedure Codes: [id number] NON-TUNNEL CV CATH MARIPOSA SMITH October 17, 2024 11:20 NGOC HIGGINS MD October 23, 2024 21:32
[2024-10-17] MEDS: THIAMINE 100mg/ml INJ (200mg/2ml VIAL) IV SCH (11:28)
[2024-10-17] MEDS: VANCOMYCIN 750mg/150ml 150 ML IV SCH (12:54)
--- NOTE | 2024-10-17 13:21 | DVH ---
INDICATION: S/P CENTRAL LINE PLACEMENT TECHNIQUE: Frontal view of the chest. COMPARISON: XY CHEST XRAY 1 VIEW on DOS: 10/17/24, XY CHEST XRAY 1 VIEW on DOS: 10/17/24 FINDINGS: LUNGS AND PLEURAL SPACES: Bibasilar atelectasis or pneumonia. No pneumothorax. HEART: Unremarkable. No cardiomegaly. MEDIASTINUM: Unremarkable. Normal mediastinal contour. BONES/JOINTS: Unremarkable. No acute fracture. TUBES, LINES AND DEVICES: The endotracheal tube (ETT) is in satisfactory position. Enteric tube ti p in the stomach. Right central venous catheter tip in the SVC. No pneumothorax. IMPRESSION: Right central venous catheter placement. No pneumothorax. Otherwise no interval change. Bibasilar atelectasis or pneumonia.
--- NOTE | 2024-10-17 13:57 | DVHSR ---
APPROVED REPORT EXAM: Two-dimensional and M-mode echocardiogram with Doppler and color Doppler. Blood Pressure: 89/57 mmHg INDICATION NSTEMI RISK FACTORS Height: 5'4", Weight: 130 DIMENSIONS LVDd4.0 (3.8-5.7cm)LA (2D)3.8 (1.9-4.0cm)Aortic Root2.9 (2.0-3.7cm) LVDs2.7 (2.5-4.0cm)LA (MM) (1.9-4.0cm)Aortic Cusp Exc1.8 (1.5-2.0cm) EF (%) 60.0 (55-70%)Rt. Atrium4.0 (1.9-4.0cm)Asc. Aorta cm IVSd1.0 (0.7-1.1cm)RV (D) (1.8-2.4cm) Mitral Valve MitralMitral Stenosis E/A ratio0.02D MVAcm2 Aortic Valve Aortic ValveAortic Stenosis V11.16m/Cesar Mean GR.3mmHg V21.27m/Cesar Peak GR.6mmHg LVOT Diameter2.1 (1.8-2.4cm)Doppler AVA3.16cm2 Pulmonic Valve V20.93m/s Tricuspid Valve TR Velocity2.21m/s [id number] Other Information Quality : Technically LimitedRhythm : Technically limited study due to body habitus and on vent. Conclusion lvef 70% hyperdynamic LV normal RV function, cannot rule out enargement normal atria no severe valve abnormalities noted
--- NOTE | 2024-10-17 14:31 | DVHPNRES ---
Progress Note Date Seen: October 17, 2024 Resident Creating Document: ENOC MATHIAS RESIDENT Medical Necessity Reason Pt with a Central, PICC or Fol: Yes The following are medically ne: Central Line, Avitia Catheter Subjective Review of Systems Juni Isidro is a 38-year-old female patient who presents to the ED with complaint of 4-day history of constipation and abdominal pain, followed by diarrhea after taking laxatives, associated with progressive dyspnea in functional class IV. Patient was diagnosed with toxic megacolon requiring urgent surgery (hemicolectomy with ileostomy), admitted to ICU. Patient currently ventilated, obtained review of systems and history from EMR and who is at bedside. 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 Surgical History: Hiatal hernia repair, Laparoscopic gastric sleeve, Multiple spine surgeries, Arthroscopic knee surgery Family history: Diabetes Social History: Lives in [place] with family. Former heavy ethanol use, currently ~2 drinks/day. Denies current tobacco and other drug abuse Allergies: Doxycycline Home medication: Olanzapine 5 mg PO daily, Morphine, [place] 10 mg q4hs PRN, Losartan 100 mg PO daily, Meloxicam, Hydrocortisone 5 mg PO daily, Medroxyprogesterone 2.5 mg PO daily, Pregabalin 200 mg PO daily, Vitamin D 22919 PO weekly, Tizanidine 4 mg PO daily, Methocarbamol, Duloxetine 60 mg PO daily Patient seen and examined at bedside. Currently under in ICU status s/p hemicolectomy and ileostomy, on sedoanalgesia due to mechanical assisted ventilation, on IV vasopressors and required multiple blood product transfusion. Objective vital signs Vital Sign Date Time Temp Pulse Resp B/P (MAP) Pulse Ox O2 Delivery O2 Flow Rate FiO2 10/17/24 14:01 99.0 104 18 100/60 99.0 10/17/24 12:40 98 30 10/17/24 12:00 Mechanical Ventilator+ 10/16/24 19:30 2 Total Intake and Output 10/16/24 10/16/24 10/17/24 14:59 22:59 06:59 Intake Total 3106 ml 1682.5 ml Output Total 1075 ml Balance 3106 ml 607.5 ml medications Current Medications Medications Dose Ordered Sig/Kelvin Route Start Time Stop Time Status Last Admin Dose Admin Vancomycin HCl 200 ml @ 200 mls/hr Q12HR IV 10/16/24 22:00 UNV Enoxaparin Sodium 40 mg DAILY SC 10/17/24 10:00 UNV Hydrocortisone Sodium Succinate 50 mg Q6HR IV 10/17/24 03:00 Pantoprazole Sodium 40 mg DAILY IV 10/16/24 21:00 10/17/24 11:28 40 MG Thiamine HCl 100 mg DAILY IV 10/17/24 10:00 10/17/24 11:28 100 MG Folic Acid 1 mg/ Dextrose 50.2 ml @ 200.8 mls/ hr DAILY INJ 10/17/24 10:00 10/17/24 09:50 200.8 MLS/HR Meropenem 50 ml @ 17 mls/hr Q8HR IV 10/17/24 06:00 10/17/24 10:15 17 MLS/HR Lactated Ringer's 1,000 ml @ 125 mls/hr Q8H IV 10/16/24 23:45 10/17/24 05:03 125 MLS/HR Norepinephrine Bitartrate 250 ml @ 3.75 mls/hr Q24H IV 10/17/24 01:15 10/17/24 07:26 3.75 MLS/HR Midazolam HCl 50 ml @ 1 mls/hr Q24H IV 10/17/24 04:45 10/17/24 09:31 10 MLS/HR Fentanyl Citrate 250 ml @ 2.5 mls/hr Q24H IV 10/17/24 04:45 10/17/24 04:58 2.5 MLS/HR Vancomycin HCl 0 ml @ 0 mls/hr UD IV 10/17/24 07:30 Enoxaparin Sodium 40 mg DAILY SC 10/17/24 10:00 Hold Vancomycin HCl 150 ml @ 150 mls/hr Q12HR IV 10/17/24 10:15 10/17/24 12:54 150 MLS/HR Examination Patient lying in bed, under sedoanalgesia due to mechanical ventilation General: RASS -3, afebrile, mucosae are moist Cardiovascular: Normal S1 and S2. No murmurs, gallops or rubs Respiratory: Mechanically assisted ventilation, equal bilateral airway entree. Clear lung sounds on auscultation Abdomen: Distended, Laparotomy surgical wound with no significant secretions, RUPERT drain with serosanguinous debit, Ileostomy seems viable with no stool at the moment, no organomegaly, reduced bowel sounds MSK/skin: Mobilization of limbs cannot be evaluated. Skin is dry and warm Neurological: Orientation cannot be assessed. No apparent motor no sensitive deficits. Pupils are isocoric and reactive laboratory and microbiology Laboratory Tests 10/17/24 05:47 Test 10/17/24 05:47 Range/Units Serum Glucose 101 74-106 mg/dL Microbiology Date/Time Source Procedure Growth Status 10/17/24 03:00 Abdomen Gram Stain - Final Resulted 10/17/24 03:00 Abdomen Anaerobic Culture Pending Resulted 10/17/24 03:00 Abdomen Aerobic Culture Pending Resulted Problem List/Assessment/Plan Problem List/Assessment/Plan Neurology Metabolic encephalopathy due to septic shock Sedoanalgesia History of Guillian-[place] syndrome - currently ambulates with walker History of opioid use History of Pseudotumor cerebri symptomatic by visual disturbance - s/p gastric sleeve Continue with sedoanalgesia (fentanyl, Versed and ketamine) at the moment due to mechanically assisted ventilation On Fentanyl drip to avoid opioid withdrawal Cardiovascular NSTEMI probable type II Ordered EKG Completed echocardiogram: LVEF 70%, hyperdynamic LV, normal RV function but could not rule out enlargement Respiratory Acute respiratory failure URI due to Influenza Currently under mechanical assisted ventilation (VCV VT 450 RR: 20 FIO 30% PEEP 5) Gastrointestinal Toxic megacolon - S/p hemicolectomy and ileostomy Stercoral colitis Pancreatitis Pneumobilia Acute hepatitis History of ethanol abuse History of gastric sleeve surgery Completed abdomen and pelvis CT: Pneumobilia, pneumatosis coli in the right colon, gaseous and stool distention throughout colon, Small ascites, peripancreatic inflammation Currently under empiric IV antibiotics (Meropenem and Vancomycin) Genitourinary/Nephrology MORA hemodynamically mediated (VMN) Metabolic acidosis with increased AG (lactic acidosis) - Improved Required IV fluids, boluses and maintenance. Multiple transfusion of blood products Infectious Disease Septic shock secondary to toxic megacolon/colonic ischemia URI due to Influenza Awaiting results of culture Currently under empiric IV antibiotics (Meropenem and Vancomycin). No Oseltamivir, since it is PO Endocrine Ray's disease Hypertriglyceridemia Hypothyroidism Dyslipidemia Received Hydrocortisone 200 mg once and maintenance 50 mg q6hs. Now on Methylprednisolone 40 mg IV bid Avoid propofol due to hypertriglyceridemia TSH within normal limits, no Levothyroxine in Med reconcile. Will hold on T4 treatment Hematology Severe normocytic Anemia with iron deficiency Acute blood loss Thrombocytopenia (questionable HIT I) Patient require multiple blood product transfusion (two PRBCs, one fresh frozen plasma, cryoprecipitate and platelets) Musculoskeletal Chronic back pain Currently on fentanyl drip. Avoid opiate withdrawal Nutrition: NPO, on clinimix Prophylaxis: PUD (pantoprazole) and DVT (SCDs) Lines 10/17/2024 Avitia 10/17/2024 ET 10/17/2024 Right IJ CVC 10/17/2024 RUPERT drain Drips Midazolam 15 Fentanyl 125 IV fluids 125 Norepinephrine 8 Goals of care discussed with (Derrell) for over 18 minutes: Full code status Discussed plan with Dr. Higgins, family and nurses: Patient is currently ICU status, s/p hemicolectomy and ileostomy, on mechanical assisted ventilation, empiric IV antibiotic, requiring multiple blood product transfusions, IV iron, NPO, on Clinimiz. Pending culture results. Patient has poor prognosis. Critical care time spent including discussion with nursing and family, excluding procedures: 98 minutes Plan discussed with: Spouse, Other (Nurses) My Orders My Orders Orders - ENOC MATHIAS RESIDENT Procedure Category Date Status Time Chest Xray 1 View XY 10/18/24 Logged 05:00 Chest Xray 1 View XY 10/19/24 Logged 05:00 Chest Xray 1 View XY 10/20/24 Logged 05:00 Chest Xray 1 View XY 10/21/24 Logged 05:00 Chest Xray 1 View XY 10/22/24 Logged 05:00 Chest Xray 1 View XY 10/23/24 Logged 05:00 Chest Xray 1 View XY 10/24/24 Logged 05:00 Chest Xray 1 View XY 10/25/24 Logged 05:00 Chest Xray 1 View XY 10/26/24 Logged 05:00 Chest Xray 1 View XY 10/27/24 Logged 05:00 Vancomycin Per [facility] 5/19/25 In Process Pharmacy 07:30 Enoxaparin Sodium PHA 10/17/24 In Process (Lovenox) 10:00 Vancomycin PHA 10/17/24 In Process 750mg/150ml 10:15 Vancomycin Per [facility] 10/18/24 In Process Pharmacy Protoc 10:00 Vancomycin,Trough LAB 10/18/24 Verified 09:00 Creatinine LAB 10/18/24 Verified 09:00 Chest Portable XY 10/17/24 Resulted 10:34 Date of Service: October 17, 2024 Billing Provider: NGOC HIGGINS MD Common Visit Codes: [id number] CARE 30-74 MIN, [id number] CARE-EACH +30MIN ENOC MATHIAS RESIDENT October 17, 2024 14:31 NGOC HIGGINS MD October 18, 2024 13:00
[2024-10-17 17:22] LABS: Basophils # (auto) 0 10 ^3/uL (0-0.2); Basophils % (auto) 0.1 % (0.0-2.0); Lymphocytes # (auto) 0.2 10 ^3/uL (0.4-5.4); Monocytes # (auto) 0.2 10 ^3/uL (0-1.3); Nucleated Red Blood Cells % 0.1 %
[2024-10-17 17:23] LABS: Eosinophils # (auto) 0 10 ^3/uL (0-0.8); Eosinophils % (auto) 0.7 % (0.0-7.0); Hematocrit 21.6 % (36.0-46.0); Lymphocytes % (auto) 3.4 % (10.0-50.0); Mean Corpuscular Hgb Conc. 31.3 g/dL (32.0-36.0); Mean Corpuscular Volume 89.3 fL (80.0-100.0); Monocytes % (auto) 3.6 % (0.0-12.0); Neutrophils # (auto) 5.6 10 ^3/uL (1.6-8.6); Neutrophils % (auto) 92.2 % (37.0-80.0); Platelet Count (auto) 92 10^3/uL (140-450); Red Blood Cells 2.42 10^6/uL (4.0-5.20); White Blood Cell 6.1 10^3/uL (4.4-10.8)
[2024-10-17 17:34] LABS: INR 1.36 (0.9-1.15); Partial Thromboplastin Time 45.7 SEC (24.5-34.5)
[2024-10-17 17:37] LABS: Hemoglobin 6.8 g/dL (12.2-16.2); Red Cell Distribution Width 21.8 % (11.8-14.3)
[2024-10-17 17:38] LABS: Alkaline Phosphatase 99 U/L (46-116); Anion Gap 9 (5-15); BUN/Creatinine Ratio 17.4 (10.0-20.0); Bilirubin, Total 0.9 mg/dL (0.2-1.0); Blood Urea Nitrogen 15 mg/dL (9-23); Carbon Dioxide 22 mmol/L (20-31); Chloride 107 mmol/L (98-107); Lipase 51 U/L (12-53); Magnesium 1.7 mg/dL (1.6-2.6); Phosphorus 4.3 mg/dL (2.4-5.1); Sodium 138 mmol/L (136-145)
[2024-10-17 17:40] LABS: Alanine Aminotransferase 72 U/L (7-40); Albumin 2.5 g/dL (3.2-4.8); Aspartate Aminotransferase 148 U/L (13-40); Calcium 7.2 mg/dL (8.7-10.4); Glucose 127 mg/dL (74-106); Potassium 3.2 mmol/L (3.5-5.1); Total Protein 4.3 g/dL (5.7-8.2)
--- NOTE | 2024-10-17 19:00 | ECG ---
[facility] Test Date: 2024-10-16 Test Time: 14:18:06 Pat Name: TENZIN HUGO Department: ED Room: 0235T Gender: F [employer] Operator: RUSTY : 1985 Requested By: JOSE ANGEL GASCA Order Number: [id number] Reading MD: Gunnar Parr Measurements Intervals [place] Rate: 124 P: 72 WV: 144 QRS: 29 QRSD: 72 T: 10 QT: 309 QTc: 444 Interpretive Statements Sinus tachycardia Electronically Signed On 10-24-2024 10:54:58 PDT by Gunnar Parr Please click the below link to view image of tracing.
[2024-10-17] MEDS ORDERED: CLINIMIX PER PHARMACY 0 ML IV SCH (19:15)
[2024-10-17] MEDS: KETAMINE 50mg/ML 10ml Vial 500 MG in SODIUM CHL 0.9% 490 ML IV SCH (20:33)
[2024-10-17] MEDS: POTASSIUM CHL 20MEQ/100ML 100 ML IV SCH (20:43)
[2024-10-17] MEDS: MAGNESIUM SULFATE 1GM/100ML 100 ML IV SCH (20:43)
[2024-10-17] MEDS ORDERED: HYDROCORTISONE SOD SUCC 100 MG/2ML INJ VIAL IV SCH (22:00)
[2024-10-17] MEDS: methylPREDNISolone SOD SUCC 40 MG/ML VL IV SCH (22:09)
[2024-10-17] MEDS: AMINO ACID INFUSION IN D10W 1,000 ML IV ONE (22:45)
[2024-10-18] VITALS (107 sets, daily range): BP systolic 84–119; BP diastolic 52–85; PULSE 58–96; RESP 10–19; TEMP 97.3–99.3; O2SAT 89–100
[2024-10-18 01:49] LABS: Hematocrit 26.9 % (36.0-46.0); Hemoglobin 8.7 g/dL (12.2-16.2)
--- NOTE | 2024-10-18 05:58 | DVH ---
EXAM: XR Chest, 1 View CLINICAL INDICATION: Et intubation TECHNIQUE: Frontal view of the chest. COMPARISON: XY CHEST PORTABLE on DOS: 10/17/24, XY CHEST XRAY 1 VIEW on DOS: 10/17/24 FINDINGS: LUNGS AND PLEURAL SPACES: See below. HEART: Cardiomegaly with mild congestion. MEDIASTINUM: Unremarkable. Normal mediastinal contour. BONES/JOINTS: Unremarkable. No acute fracture. TUBES, LINES AND DEVICES: Right internal jugular central venous catheter tip in the superior vena c pj. The endotracheal tube (ETT) is in satisfactory position. Enteric tube tip in the stomach. OTHER FINDINGS: . . . IMPRESSION: Cardiomegaly with mild congestion.
[2024-10-18 07:13] LABS: INR 1.11 (0.9-1.15); Partial Thromboplastin Time 37.7 SEC (24.5-34.5); Prothrombin Time 11.6 sec (9.3-11.8)
[2024-10-18 07:17] LABS: Hemoglobin 8.5 g/dL (12.2-16.2)
[2024-10-18 07:21] LABS: Alanine Aminotransferase 71 U/L (7-40); Albumin 2.6 g/dL (3.2-4.8); Alkaline Phosphatase 116 U/L (46-116); Anion Gap 9 (5-15); Aspartate Aminotransferase 120 U/L (13-40); BUN/Creatinine Ratio 17.7 (10.0-20.0); Bilirubin, Total 0.5 mg/dL (0.2-1.0); Blood Urea Nitrogen 11 mg/dL (9-23); Calcium 8.2 mg/dL (8.7-10.4); Carbon Dioxide 22 mmol/L (20-31); Chloride 108 mmol/L (98-107); Cholesterol 106 mg/dL (< 200); Glucose 212 mg/dL (74-106); HDL Cholesterol < 5 mg/dL (40-59); LDL Cholesterol 24 mg/dL (< 100); Magnesium 2.5 mg/dL (1.6-2.6); Phosphorus 2.7 mg/dL (2.4-5.1); Potassium 3.5 mmol/L (3.5-5.1); Sodium 139 mmol/L (136-145); Total Protein 4.6 g/dL (5.7-8.2); Triglycerides 324 mg/dL (< 150)
[2024-10-18 07:31] LABS: Lipase 36 U/L (12-53)
[2024-10-18 08:10] LABS: Base Excess -5.7 mmol/L (-2.0-3.0)
[2024-10-18 08:23] LABS: Basophils # (auto) 0 10 ^3/uL (0-0.2); Eosinophils # (auto) 0 10 ^3/uL (0-0.8); Eosinophils % (auto) 0.1 % (0.0-7.0); Hematocrit 26.4 % (36.0-46.0); Hemoglobin 8.5 g/dL (12.2-16.2); Lymphocytes # (auto) 0.1 10 ^3/uL (0.4-5.4); Lymphocytes % (auto) 1.8 % (10.0-50.0); Mean Corpuscular Hemoglobin 28.5 pg (28.0-32.0); Mean Corpuscular Hgb Conc. 32.2 g/dL (32.0-36.0); Mean Corpuscular Volume 88.4 fL (80.0-100.0); Monocytes # (auto) 0.3 10 ^3/uL (0-1.3); Monocytes % (auto) 4.6 % (0.0-12.0); Neutrophils # (auto) 6.2 10 ^3/uL (1.6-8.6); Neutrophils % (auto) 93.5 % (37.0-80.0); Nucleated Red Blood Cells % 0.1 %; Platelet Count (auto) 85 10^3/uL (140-450); Red Blood Cells 2.99 10^6/uL (4.0-5.20); Red Cell Distribution Width 19.8 % (11.8-14.3); White Blood Cell 6.7 10^3/uL (4.4-10.8)
--- NOTE | 2024-10-18 09:47 | DVHPN2 ---
Progress Note - Dictate Date Seen: October 18, 2024 Medical Necessity Reason Pt with a Central, PICC or Fol: Yes The following are medically ne: Central Line, Avitia Catheter Subjective E: no major events o/n. cont to wean off levophed. only at 2 mcg 1 u PRBC given last night. vital signs Vital Sign Date Time Temp Pulse Resp B/P (MAP) Pulse Ox O2 Delivery O2 Flow Rate FiO2 10/18/24 08:10 84 18 104/56 (72) 96 30 10/18/24 08:00 Mechanical Ventilator+ 10/18/24 06:45 97.9 208.2 10/16/24 19:30 2 Total Intake and Output 10/17/24 10/17/24 10/18/24 15:00 23:00 07:00 Intake Total 1717.95 ml 2624.26 ml 1493.55 ml Output Total 1480 ml 1830 ml Balance 1717.95 ml 1144.26 ml -336.45 ml medications Current Medications Medications Dose Ordered Sig/Kelvin Route Start Time Stop Time Status Last Admin Dose Admin Vancomycin HCl 200 ml @ 200 mls/hr Q12HR IV 10/16/24 22:00 UNV Enoxaparin Sodium 40 mg DAILY SC 10/17/24 10:00 UNV Pantoprazole Sodium 40 mg DAILY IV 10/16/24 21:00 10/17/24 11:28 40 MG Thiamine HCl 100 mg DAILY IV 10/17/24 10:00 10/17/24 11:28 100 MG Folic Acid 1 mg/ Dextrose 50.2 ml @ 200.8 mls/ hr DAILY INJ 10/17/24 10:00 10/17/24 09:50 200.8 MLS/HR Meropenem 50 ml @ 17 mls/hr Q8HR IV 10/17/24 06:00 10/18/24 06:01 17 MLS/HR Norepinephrine Bitartrate 250 ml @ 3.75 mls/hr Q24H IV 10/17/24 01:15 10/17/24 21:10 11.25 MLS/HR Midazolam HCl 50 ml @ 1 mls/hr Q24H IV 10/17/24 04:45 10/18/24 07:59 15 MLS/HR Fentanyl Citrate 250 ml @ 2.5 mls/hr Q24H IV 10/17/24 04:45 10/18/24 08:02 35 MLS/HR Vancomycin HCl 0 ml @ 0 mls/hr UD IV 10/17/24 07:30 Vancomycin HCl 150 ml @ 150 mls/hr Q12HR IV 10/17/24 10:15 10/17/24 22:09 150 MLS/HR Methylprednisolone Sodium Succinate 40 mg BID IV 10/17/24 22:00 10/17/24 22:09 40 MG Ketamine HCl 500 mg/Sodium Chloride 500 ml @ 3.54 mls/hr Q24H IV 10/17/24 17:30 10/17/24 20:33 3.54 MLS/HR Iron Sucrose 110 ml @ 110 mls/hr DAILY@1200 IV 10/18/24 12:00 10/22/24 12:59 Amino Acids 0 ml @ 0 mls/hr PER PHARMACY IV 10/17/24 19:15 UNV objective GEN: intubated/sedated. ABD: surgical incision clean and dry. RUPERT 400+ light serosang laboratory and microbiology Laboratory Tests 10/18/24 06:00 Test 10/18/24 06:00 Range/Units Serum Glucose 212 H 74-106 mg/dL Assessment/Plan A: 1. s/p ex lap with right colectomy POD #1 for ischemic colitis 2. resolving MORA 3. resp failure on min vent settings 4. thrombocytopenia stabilizing P: 1. overall improving. wean off vent per pulm team. Plan discussed with: Spouse MIRIAM ARCHIBALD MD October 18, 2024 09:47
[2024-10-18] MEDS: POTASSIUM CHL 20MEQ/100ML 100 ML IV SCH (10:38)
[2024-10-18] MEDS: FUROSEMIDE 20 MG/2 ML VIAL IV ONE (10:38)
[2024-10-18] MEDS: IRON SUCROSE COMPLEX 110 ML IV SCH (13:01)
[2024-10-18] MEDS: DEXMEDETOMIDINE HCL IN D5W 100 ML IV SCH (13:15)
[2024-10-18] MEDS ORDERED: POTASSIUM PHOSPHATE 22 MEQ in SODIUM CHL 0.9% 100 ML IV ONE (14:45)
[2024-10-18] MEDS: ACCU-CHEK COMFORT CURVE STRIP VI SCH (17:26)
[2024-10-18] MEDS: InsuLIN REG 1unit/0.01ml Soln (100units/ml) SC SCH (17:27)
[2024-10-18] MEDS ORDERED: DEXTROSE (50%) 50ML SYRG IV SCH (18:00)
--- NOTE | 2024-10-18 18:31 | DVH ---
EXAM: XY CHEST XRAY 1 VIEW REASON FOR EXAM: Desaturation TECHNIQUE: 1 view of the chest COMPARISON: XY CHEST XRAY 1 VIEW on DOS: 10/18/24 FINDINGS/IMPRESSION: LUNGS: Low lung volumes with small bilateral pleural effusions and peripheral interstitial edema. Cor relate for volume overload MEDIASTINUM: Normal cardiac size BONES: No acute osseous abnormality OTHER: Endotracheal tube 3.3 cm above the melvina. Enteric tube in the stomach. Right internal jugula r central venous catheter
--- NOTE | 2024-10-18 19:27 | DVHPNRES ---
Progress Note Date Seen: October 18, 2024 Resident Creating Document: ENOC MATHIAS RESIDENT Medical Necessity Reason Pt with a Central, PICC or Fol: Yes The following are medically ne: Central Line, Avitia Catheter Subjective Review of Systems Juni Isidro is a 38-year-old female patient who presents to the ED with complaint of 4-day history of constipation and abdominal pain, followed by diarrhea after taking laxatives, associated with progressive dyspnea in functional class IV. Patient was diagnosed with toxic megacolon requiring urgent surgery (hemicolectomy with ileostomy), admitted to ICU. Patient currently ventilated, obtained review of systems and history from EMR and who is at bedside. 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 Surgical History: Hiatal hernia repair, Laparoscopic gastric sleeve, Multiple spine surgeries, Arthroscopic knee surgery Family history: Diabetes Social History: Lives in [place] with family. Former heavy ethanol use, currently ~2 drinks/day. Denies current tobacco and other drug abuse Allergies: Doxycycline Home medication: Olanzapine 5 mg PO daily, Morphine, [place] 10 mg q4hs PRN, Losartan 100 mg PO daily, Meloxicam, Hydrocortisone 5 mg PO daily, Medroxyprogesterone 2.5 mg PO daily, Pregabalin 200 mg PO daily, Vitamin D 17812 PO weekly, Tizanidine 4 mg PO daily, Methocarbamol, Duloxetine 60 mg PO daily Patient seen and examined at bedside. Currently under in ICU status s/p hemicolectomy and ileostomy, on sedoanalgesia due to mechanical assisted ventilation, on minimal IV vasopressors and required multiple blood product transfusion. Discontinued IV fluids due to mild pulmonary edema. Objective vital signs Vital Sign Date Time Temp Pulse Resp B/P (MAP) Pulse Ox O2 Delivery O2 Flow Rate FiO2 10/18/24 18:30 97.9 59 18 96/68 (77) 94 208.2 10/18/24 18:10 Mechanical Ventilator+ 50 50 10/16/24 19:30 2 Total Intake and Output 10/17/24 10/17/24 10/18/24 15:00 23:00 07:00 Intake Total 1717.95 ml 2624.26 ml 1701.69 ml Output Total 1480 ml 1830 ml Balance 1717.95 ml 1144.26 ml -128.31 ml medications Current Medications Medications Dose Ordered Sig/Kelvin Route Start Time Stop Time Status Last Admin Dose Admin Vancomycin HCl 200 ml @ 200 mls/hr Q12HR IV 10/16/24 22:00 UNV Enoxaparin Sodium 40 mg DAILY SC 10/17/24 10:00 UNV Pantoprazole Sodium 40 mg DAILY IV 10/16/24 21:00 10/18/24 10:37 40 MG Thiamine HCl 100 mg DAILY IV 10/17/24 10:00 10/18/24 10:37 100 MG Folic Acid 1 mg/ Dextrose 50.2 ml @ 200.8 mls/ hr DAILY INJ 10/17/24 10:00 10/18/24 10:39 200.8 MLS/HR Meropenem 50 ml @ 17 mls/hr Q8HR IV 10/17/24 06:00 10/18/24 15:00 17 MLS/HR Norepinephrine Bitartrate 250 ml @ 3.75 mls/hr Q24H IV 10/17/24 01:15 10/17/24 21:10 11.25 MLS/HR Midazolam HCl 50 ml @ 1 mls/hr Q24H IV 10/17/24 04:45 10/18/24 18:04 15 MLS/HR Fentanyl Citrate 250 ml @ 2.5 mls/hr Q24H IV 10/17/24 04:45 10/18/24 15:03 32.5 MLS/HR Vancomycin HCl 0 ml @ 0 mls/hr UD IV 10/17/24 07:30 Methylprednisolone Sodium Succinate 40 mg BID IV 10/17/24 22:00 10/18/24 10:37 40 MG Ketamine HCl 500 mg/Sodium Chloride 500 ml @ 3.54 mls/hr Q24H IV 10/17/24 17:30 10/17/24 20:33 3.54 MLS/HR Iron Sucrose 110 ml @ 110 mls/hr DAILY@1200 IV 10/18/24 12:00 10/22/24 12:59 10/18/24 13:01 110 MLS/HR Amino Acids 0 ml @ 0 mls/hr PER PHARMACY IV 10/17/24 19:15 Diagnostic Test (Pha) 1 strip Q6HR 10/18/24 18:00 10/18/24 17:26 1 STRIP Insulin Human Regular FOLLOW SLIDING SCALE Q6HR SC 10/18/24 18:00 10/18/24 17:27 8 UNITS Dextrose 50 ml UD IV 10/18/24 18:00 Amino Acids/ Electrolytes/ Dextrose 1,000 ml @ 41 mls/hr DAILY@2200 IV 10/18/24 22:00 Vancomycin HCl 150 ml @ 150 mls/hr Q8H IV 10/18/24 20:00 Examination Patient lying in bed, under sedoanalgesia due to mechanical ventilation General: RASS -3, afebrile, mucosae are moist Cardiovascular: Normal S1 and S2. No murmurs, gallops or rubs Respiratory: Mechanically assisted ventilation, equal bilateral airway entree. Clear lung sounds on auscultation Abdomen: Distended, Laparotomy surgical wound with no significant secretions, RUPERT drain with serosanguinous debit, Ileostomy seems viable with green fluid in bag, no organomegaly, reduced bowel sounds MSK/skin: Mobilization of limbs cannot be evaluated. Skin is dry and warm Neurological: Orientation cannot be assessed. No apparent motor no sensitive deficits. Pupils are isocoric and reactive laboratory and microbiology Laboratory Tests 10/18/24 06:00 Test 10/18/24 06:00 Range/Units Serum Glucose 212 H 74-106 mg/dL Microbiology Date/Time Source Procedure Growth Status 10/17/24 18:48 Sputum Endotracheal Wash Gram Stain Pending Resulted 10/17/24 18:48 Sputum Endotracheal Wash Respiratory Culture - Preliminary Resulted 10/17/24 18:20 Nose MRSA Screen - Final Complete 10/17/24 01:25 Voided Urine Urine Culture - Preliminary Resulted 10/16/24 16:12 Blood Blood Culture - Preliminary NO GROWTH AFTER 48 HOURS OF INCUBATION. Resulted Problem List/Assessment/Plan Problem List/Assessment/Plan Neurology Metabolic encephalopathy due to septic shock Sedoanalgesia History of Guillian-Nelson syndrome - currently ambulates with walker History of opioid use History of Pseudotumor cerebri symptomatic by visual disturbance - s/p gastric sleeve Continue with sedoanalgesia (fentanyl, Versed and ketamine) at the moment due to mechanically assisted ventilation On Fentanyl drip to avoid opioid withdrawal Cardiovascular NSTEMI probable type II Acute on diastolic congestive heart failure secondary to multiple blood transfusion (TACO) Ordered EKG Completed echocardiogram: LVEF 70%, hyperdynamic LV, normal RV function but could not rule out enlargement Required IV furosemide Respiratory Acute respiratory failure URI due to Influenza Currently under mechanical assisted ventilation (VCV VT 450 RR: 20 FIO 30% PEEP 5) Gastrointestinal Toxic megacolon - S/p hemicolectomy and ileostomy Stercoral colitis Pancreatitis Pneumobilia Acute hepatitis History of ethanol abuse History of gastric sleeve surgery Completed abdomen and pelvis CT: Pneumobilia, pneumatosis coli in the right colon, gaseous and stool distention throughout colon, Small ascites, peripancreatic inflammation Currently under empiric IV antibiotics (Meropenem and Vancomycin) Genitourinary/Nephrology MORA hemodynamically mediated (VMN) Metabolic acidosis with increased AG (lactic acidosis) - Improved Required IV fluids, boluses and maintenance. Multiple transfusion of blood products Infectious Disease Septic shock secondary to toxic megacolon/colonic ischemia URI due to Influenza Awaiting results of culture Currently under empiric IV antibiotics (Meropenem and Vancomycin). No Oseltamivir, since it is PO Endocrine [place]'s disease Hypertriglyceridemia Hypothyroidism Dyslipidemia Received Hydrocortisone 200 mg once and maintenance 50 mg q6hs. Now on Methylprednisolone 40 mg IV bid Avoid propofol due to hypertriglyceridemia TSH within normal limits, no Levothyroxine in Med reconcile. Will hold on T4 treatment Hematology Severe normocytic Anemia with iron deficiency Acute blood loss Thrombocytopenia (questionable HIT I) Patient require multiple blood product transfusion (two PRBCs, one fresh frozen plasma, cryoprecipitate and platelets) Musculoskeletal Chronic back pain Currently on fentanyl drip. Avoid opiate withdrawal Nutrition: NPO, on clinimix Prophylaxis: PUD (pantoprazole) and DVT (SCDs) Lines 10/17/2024 Avitia 10/17/2024 ET 10/17/2024 Right IJ CVC 10/17/2024 RUPERT drain Drips Midazolam 15 Fentanyl 350 IV fluids Discontinued Ketamine Norepinephrine 2 Goals of care discussed with (Derrell) for over 18 minutes: Full code status Discussed plan with Dr. Higgins, family and nurses: Patient is currently ICU status, s/p hemicolectomy and ileostomy, on mechanical assisted ventilation, empiric IV antibiotic, requiring multiple blood product transfusions, IV iron, NPO, on Clinimix. Pending culture results. Presented fluid overload, discontinued IV fluids and indicated IV diuretics. Patient has poor prognosis. Critical care time spent including discussion with nursing and family, excluding procedures: 86 minutes Plan discussed with: Patient, Spouse, Other (Nurses) My Orders My Orders Orders - ENOC MATHIAS RESIDENT Procedure Category Date Status Time Abg W/ Co-Ox RT 10/18/24 Logged 04:00 Amino Acid Infusion PHA 10/17/24 In Process In D10w (Clinimix 4. 22:30 * Wound Consult CONS 10/18/24 Transmitted Dexmedetomidine Hcl PHA 10/18/24 In Process In D5w (Precedex) 13:15 Cpap Trial For Am ORDERS 10/18/24 Verified 13:07 Glucose Blood PHA 10/18/24 In Process (Accu-Chek Comfort 18:00 Insulin R (Human) PHA 10/18/24 In Process (Insulin R) 18:00 Dextrose 50% Syringe PHA 10/18/24 In Process 18:00 Comprehensive LAB 10/19/24 Verified Metabolic Panel 06:00 Magnesium LAB 10/19/24 Verified 06:00 Phosphorus LAB 10/19/24 Verified 06:00 Amino Acid Infusion PHA 10/18/24 In Process In D10w (Clinimix 4. 22:00 Clinimix Per Pharmacy [facility] 10/18/24 In Process 22:00 Vancomycin PHA 10/18/24 In Process 750mg/150ml 20:00 Vancomycin,Trough LAB 10/19/24 Verified 11:00 Vancomycin Per [facility] 10/19/24 In Process Pharmacy Protoc 12:00 Chest Xray 1 View XY 10/18/24 Resulted 17:56 Dietary Evaluation Review Comments: 1. Advance TPN to meet at least 75% of estimated needs 2. If GI route is accessible, TF Vital HP @ 70ml/hr x 24hr (goal). Start @ 20ml/hr, increase 10ml/hr Q$H until goal is reached. Water flush 50ml Q6H if allowed. 3. monitor electrolyte, triglycerides, PN tolerance, body weight change, skin integrity. Expected Outcomes/Goals: To meet at least 75% estimated needs within 7 days FU 2-3 days Date of Service: October 18, 2024 Billing Provider: NGOC HIGGINS MD Common Visit Codes: [id number] CARE 30-74 MIN, [id number] CARE-EACH +30MIN ETCHEGOYEN,ENOC RESIDENT October 18, 2024 19:27 NGOC HIGGINS MD October 19, 2024 14:09
[2024-10-18] MEDS: VANCOMYCIN 750mg/150ml 150 ML IV SCH (20:00)
[2024-10-18] MEDS: FUROSEMIDE 40 MG/4 ML VIAL IV ONE (21:19)
[2024-10-18] MEDS: AMINO ACID INFUSION IN D10W 1,000 ML IV SCH (21:24)
[2024-10-19] VITALS (105 sets, daily range): BP systolic 87–150; BP diastolic 61–113; PULSE 55–121; RESP 9–22; TEMP 96.4–99.5; O2SAT 91–99
[2024-10-19 03:48] LABS: Basophils # (auto) 0 10 ^3/uL (0-0.2); Eosinophils # (auto) 0 10 ^3/uL (0-0.8); Eosinophils % (auto) 0.1 % (0.0-7.0); Lymphocytes # (auto) 0.2 10 ^3/uL (0.4-5.4); Mean Corpuscular Hemoglobin 29.4 pg (28.0-32.0); Monocytes # (auto) 0.4 10 ^3/uL (0-1.3); Neutrophils # (auto) 5.4 10 ^3/uL (1.6-8.6); Nucleated Red Blood Cells % 0.4 %; Red Blood Cells 2.71 10^6/uL (4.0-5.20)
[2024-10-19 03:54] LABS: Hematocrit 24.1 % (36.0-46.0); Lymphocytes % (auto) 3.8 % (10.0-50.0); Mean Corpuscular Hgb Conc. 33.1 g/dL (32.0-36.0); Mean Corpuscular Volume 88.9 fL (80.0-100.0); Monocytes % (auto) 6.7 % (0.0-12.0); Neutrophils % (auto) 89.4 % (37.0-80.0); Platelet Count (auto) 79 10^3/uL (140-450); Red Cell Distribution Width 19.6 % (11.8-14.3); White Blood Cell 6.1 10^3/uL (4.4-10.8)
--- NOTE | 2024-10-19 03:55 | DVH ---
CHEST RADIOGRAPH Indication: Et intubation Technique: Single frontal view of the chest was obtained Comparison: XY CHEST XRAY 1 VIEW on DOS: 10/18/24, XY CHEST XRAY 1 VIEW on DOS: 10/18/24, XY CHEST PORT ABLE on DOS: 10/17/24 IMPRESSION: Heart appears stable in size. Support lines and tubes appear unchanged in satisfactory position. Th ere is mild pulmonary vascular congestion. No sizable effusion or pneumothorax.
[2024-10-19 03:59] LABS: Anion Gap 7 (5-15); BUN/Creatinine Ratio 19.2 (10.0-20.0); Blood Urea Nitrogen 10 mg/dL (9-23); Carbon Dioxide 25 mmol/L (20-31); Magnesium 2.2 mg/dL (1.6-2.6); Potassium 3.6 mmol/L (3.5-5.1); Sodium 142 mmol/L (136-145)
[2024-10-19 04:00] LABS: Bilirubin, Total 0.4 mg/dL (0.2-1.0)
[2024-10-19 04:09] LABS: Chloride 110 mmol/L (98-107); Glucose 203 mg/dL (74-106)
[2024-10-19 04:10] LABS: Alanine Aminotransferase 56 U/L (7-40); Albumin 2.6 g/dL (3.2-4.8); Alkaline Phosphatase 120 U/L (46-116); Aspartate Aminotransferase 63 U/L (13-40); Calcium 7.9 mg/dL (8.7-10.4); Phosphorus 1.5 mg/dL (2.4-5.1); Total Protein 4.7 g/dL (5.7-8.2)
[2024-10-19 07:53] LABS: Base Excess -2.9 mmol/L (-2.0-3.0)
[2024-10-19] MEDS: FUROSEMIDE 40 MG/4 ML VIAL IV SCH (10:30)
--- NOTE | 2024-10-19 11:52 | DVH ---
CLINICAL INDICATION: Trauma TECHNIQUE: 1 radiographic views of the pelvis were obtained. Comparison: None FINDINGS/IMPRESSION: There is no evidence of acute fracture or dislocation. The visualized joint space is well maintained. The alignment is anatomical. There is no radiopaque foreign body.
[2024-10-19] MEDS: POTASSIUM PHOSPHATE 44 MEQ in D5W 5% 250 ML IV ONE (13:27)
[2024-10-19 13:30] LABS: Base Excess 1.1 mmol/L (-2.0-3.0)
[2024-10-19] MEDS: FUROSEMIDE 20 MG/2 ML VIAL IV ONE (14:15)
--- NOTE | 2024-10-19 20:43 | DVHPNRES ---
Progress Note Date Seen: October 19, 2024 Resident Creating Document: ENOC MATHIAS RESIDENT Medical Necessity Reason Pt with a Central, PICC or Fol: Yes The following are medically ne: Central Line, Avitia Catheter Subjective Review of Systems Juni Isidro is a 38-year-old female patient who presents to the ED with complaint of 4-day history of constipation and abdominal pain, followed by diarrhea after taking laxatives, associated with progressive dyspnea in functional class IV. Patient was diagnosed with toxic megacolon requiring urgent surgery (hemicolectomy with ileostomy), admitted to ICU. Patient currently ventilated, obtained review of systems and history from EMR and who is at bedside. 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 Surgical History: Hiatal hernia repair, Laparoscopic gastric sleeve, Multiple spine surgeries, Arthroscopic knee surgery Family history: Diabetes Social History: Lives in [place] with family. Former heavy ethanol use, currently ~2 drinks/day. Denies current tobacco and other drug abuse Allergies: Doxycycline Home medication: Olanzapine 5 mg PO daily, Morphine, Gibson 10 mg q4hs PRN, Losartan 100 mg PO daily, Meloxicam, Hydrocortisone 5 mg PO daily, Medroxyprogesterone 2.5 mg PO daily, Pregabalin 200 mg PO daily, Vitamin D 58507 PO weekly, Tizanidine 4 mg PO daily, Methocarbamol, Duloxetine 60 mg PO daily Patient seen and examined at bedside. Currently under in ICU status s/p hemicolectomy and ileostomy, on sedoanalgesia due to mechanical assisted ventilation, on minimal IV vasopressors and required multiple blood product transfusion. Discontinued IV fluids due to mild pulmonary edema, on IV furosemide. Patient completed CPAP trial which was successful, finally extubated the patient during the p.m. of 10/19/2024. Objective vital signs Vital Sign Date Time Temp Pulse Resp B/P (MAP) Pulse Ox O2 Delivery O2 Flow Rate FiO2 10/19/24 20:00 81 14 96 Cool Aerosol 8 40 40 10/19/24 18:45 98.4 125/92 (103) 209.1 Total Intake and Output 10/18/24 10/18/24 10/19/24 15:00 23:00 07:00 Intake Total 1212.51 ml 1071.78 ml 891.220 ml Output Total 2260 ml 2440 ml Balance 1212.51 ml -1188.22 ml -1548.780 ml medications Current Medications Medications Dose Ordered Sig/Kelvin Route Start Time Stop Time Status Last Admin Dose Admin Vancomycin HCl 200 ml @ 200 mls/hr Q12HR IV 10/16/24 22:00 UNV Enoxaparin Sodium 40 mg DAILY SC 10/17/24 10:00 UNV Pantoprazole Sodium 40 mg DAILY IV 10/16/24 21:00 10/19/24 10:29 40 MG Thiamine HCl 100 mg DAILY IV 10/17/24 10:00 10/19/24 10:30 100 MG Folic Acid 1 mg/ Dextrose 50.2 ml @ 200.8 mls/ hr DAILY INJ 10/17/24 10:00 10/19/24 10:32 200.8 MLS/HR Meropenem 50 ml @ 17 mls/hr Q8HR IV 10/17/24 06:00 10/19/24 16:35 17 MLS/HR Vancomycin HCl 0 ml @ 0 mls/hr UD IV 10/17/24 07:30 Methylprednisolone Sodium Succinate 40 mg BID IV 10/17/24 22:00 10/19/24 10:29 40 MG Iron Sucrose 110 ml @ 110 mls/hr DAILY@1200 IV 10/18/24 12:00 10/22/24 12:59 10/19/24 12:06 110 MLS/HR Amino Acids 0 ml @ 0 mls/hr PER PHARMACY IV 10/17/24 19:15 Diagnostic Test (Pha) 1 strip Q6HR 10/18/24 18:00 10/19/24 18:58 1 STRIP Insulin Human Regular FOLLOW SLIDING SCALE Q6HR SC 10/18/24 18:00 10/19/24 18:58 4 UNITS Dextrose 50 ml UD IV 10/18/24 18:00 Amino Acids/ Electrolytes/ Dextrose 1,000 ml @ 41 mls/hr DAILY@2200 IV 10/18/24 22:00 10/18/24 21:24 41 MLS/HR Vancomycin HCl 150 ml @ 150 mls/hr Q8H IV 10/18/24 20:00 10/19/24 19:45 150 MLS/HR Furosemide 40 mg DAILY IV 10/19/24 10:00 10/19/24 10:30 40 MG Morphine Sulfate 2 mg Q4HPRN PRN IV 10/19/24 20:30 UNV Examination Patient lying in bed, only on precedex due to mechanical ventilation (before extubation) General: RASS -1, low grade fever, mucosae are moist Cardiovascular: Normal S1 and S2. No murmurs, gallops or rubs Respiratory: Mechanically assisted ventilation, equal bilateral airway entree. Clear lung sounds on auscultation Abdomen: Distended, Laparotomy surgical wound with no significant secretions, RUPERT drain with serosanguinous debit, stoma of Ileostomy seems viable with brown stool in cholostomy bag, no organomegaly, reduced bowel sounds MSK/skin: Mobilization o4 limbs. Skin is dry and warm Neurological: Orientation cannot be assessed. No apparent motor no sensitive deficits. Pupils are isocoric and reactive laboratory and microbiology Laboratory Tests 10/19/24 03:15 Test 10/19/24 03:15 Range/Units Serum Glucose 203 H 74-106 mg/dL Microbiology Date/Time Source Procedure Growth Status 10/17/24 18:48 Sputum Endotracheal Wash Gram Stain - Final Resulted 10/17/24 18:48 Sputum Endotracheal Wash Respiratory Culture - Preliminary Resulted 10/17/24 18:20 Nose MRSA Screen - Final Complete 10/17/24 01:25 Voided Urine Urine Culture - Final Complete 10/16/24 16:12 Blood Blood Culture - Preliminary NO GROWTH AFTER 72 HOURS OF INCUBATION. 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 History of opioid use History of Pseudotumor cerebri symptomatic by visual disturbance - s/p gastric sleeve Continue with sedoanalgesia (fentanyl, Versed and ketamine) at the moment due to mechanically assisted ventilation On Fentanyl drip to avoid opioid withdrawal Cardiovascular NSTEMI probable type II Acute on diastolic congestive heart failure secondary to multiple blood transfusion (TACO) Ordered EKG Completed echocardiogram: LVEF 70%, hyperdynamic LV, normal RV function but could not rule out enlargement Required IV furosemide Respiratory Acute respiratory failure URI due to Influenza Currently under mechanical assisted ventilation (VCV VT 450 RR: 20 FIO 30% PEEP 5). Completed CPAP trial which was successful and extubated on pm of 10/19/2024 Gastrointestinal Toxic megacolon - S/p hemicolectomy and ileostomy Stercoral colitis Pancreatitis Pneumobilia Acute hepatitis History of ethanol abuse History of gastric sleeve surgery Completed abdomen and pelvis CT: Pneumobilia, pneumatosis coli in the right colon, gaseous and stool distention throughout colon, Small ascites, peripancreatic inflammation Currently under empiric IV antibiotics (Meropenem and Vancomycin) Genitourinary/Nephrology MORA hemodynamically mediated (VMN) Metabolic acidosis with increased AG (lactic acidosis) - Improved Required IV fluids, boluses and maintenance. Multiple transfusion of blood products Infectious Disease Septic shock secondary to toxic megacolon/colonic ischemia URI due to Influenza Awaiting results of culture Currently under empiric IV antibiotics (Meropenem and Vancomycin). No Oseltamivir, since it is PO Endocrine [place]'s disease Hypertriglyceridemia Hypothyroidism Dyslipidemia Received Hydrocortisone 200 mg once and maintenance 50 mg q6hs. Now on Methylprednisolone 40 mg IV bid Avoid propofol due to hypertriglyceridemia TSH within normal limits, no Levothyroxine in Med reconcile. Will hold on T4 treatment Hematology Severe normocytic Anemia with iron deficiency Acute blood loss Thrombocytopenia (questionable HIT I) Patient require multiple blood product transfusion (two PRBCs, one fresh frozen plasma, cryoprecipitate and platelets) Musculoskeletal Chronic back pain Ruled out pelvic fracture Currently on fentanyl drip. Avoid opiate withdrawal Due to recent mechanical fall, obtain pelvic x-ray which ruled out acute fracture Nutrition: NPO, on clinimix Prophylaxis: PUD (pantoprazole) and DVT (SCDs) Lines 10/17/2024 Avitia 10/17/2024 ET 10/17/2024 Right IJ CVC 10/17/2024 RUPERT drain Drips Midazolam 0 Fentanyl 0 IV fluids Discontinued Ketamine 0 Precedex 0.03 Norepinephrine 0 Clinimix 42 Goals of care discussed with (Derrell) for over 18 minutes: Full code status Discussed plan with Dr. Higgins, family and nurses: Patient is currently ICU status, s/p hemicolectomy and ileostomy, on mechanical assisted ventilation, empiric IV antibiotic, requiring multiple blood product transfusions, IV iron, NPO, on Clinimix. Pending culture results. Presented fluid overload, discontinued IV fluids and indicated IV diuretics. Patient completed successful CPAP trial, finally extubating her on the p.m. of 10/19/2024. We will advance diet once surgeon agrees. Patient has poor prognosis. Critical care time spent including discussion with nursing and family, including CPAP trial and excluding procedures: 126 minutes Plan discussed with: Patient, Spouse, Other (Nurses) My Orders My Orders Orders - ENOC MATHIAS RESIDENT Procedure Category Date Status Time Pelvis Ap XY 10/19/24 Resulted 10:32 Comprehensive LAB 10/20/24 Verified Metabolic Panel 05:00 Magnesium LAB 10/20/24 Verified 05:00 Phosphorus LAB 10/20/24 Verified 05:00 Clinimix Per Pharmacy [facility] 10/19/24 In Process 22:00 Communication Order ORDERS 10/19/24 Transmitted 08:55 Dietary Evaluation Review Comments: 1. Advance TPN to meet at least 75% of estimated needs 2. If GI route is accessible, TF Vital HP @ 70ml/hr x 24hr (goal). Start @ 20ml/hr, increase 10ml/hr Q$H until goal is reached. Water flush 50ml Q6H if allowed. 3. monitor electrolyte, triglycerides, PN tolerance, body weight change, skin integrity. Expected Outcomes/Goals: To meet at least 75% estimated needs within 7 days FU 2-3 days Date of Service: October 19, 2024 Billing Provider: NGOC HIGGINS MD Common Visit Codes: [id number] CARE 30-74 MIN, [id number] CARE-EACH +30MIN (X2) ENOC MATHIAS October 19, 2024 20:43 NGOC HIGGINS MD October 20, 2024 11:30
[2024-10-19] MEDS: MORPHINE SULFATE INJ 2 MG/ml SYRG IV PRN (20:53)
[2024-10-20] VITALS (53 sets, daily range): BP systolic 122–153; BP diastolic 86–109; PULSE 82–118; RESP 9–24; TEMP 95–100.2; O2SAT 89–98
[2024-10-20] MEDS: HYDROmorphone HCL 2 MG/ML VL/or syr IV ONE (04:23)
[2024-10-20 04:41] LABS: Anion Gap 9 (5-15); BUN/Creatinine Ratio 30.8 (10.0-20.0); Blood Urea Nitrogen 12 mg/dL (9-23); Carbon Dioxide 26 mmol/L (20-31); Chloride 105 mmol/L (98-107); Magnesium 1.9 mg/dL (1.6-2.6); Sodium 140 mmol/L (136-145)
[2024-10-20 04:42] LABS: Phosphorus 2.7 mg/dL (2.4-5.1)
[2024-10-20 04:58] LABS: Alanine Aminotransferase 63 U/L (7-40); Albumin 2.9 g/dL (3.2-4.8); Alkaline Phosphatase 184 U/L (46-116); Aspartate Aminotransferase 137 U/L (13-40); Calcium 8.4 mg/dL (8.7-10.4); Glucose 189 mg/dL (74-106); Potassium 3.2 mmol/L (3.5-5.1); Total Protein 5.2 g/dL (5.7-8.2)
[2024-10-20 05:08] LABS: Hematocrit 28.3 % (36.0-46.0); Hemoglobin 9.2 g/dL (12.2-16.2); Mean Corpuscular Hemoglobin 28.7 pg (28.0-32.0); Mean Corpuscular Hgb Conc. 32.5 g/dL (32.0-36.0); Mean Corpuscular Volume 88.2 fL (80.0-100.0); Platelet Count (auto) 80 10^3/uL (140-450); Red Blood Cells 3.21 10^6/uL (4.0-5.20); Red Cell Distribution Width 20.6 % (11.8-14.3); White Blood Cell 8.3 10^3/uL (4.4-10.8)
[2024-10-20 05:14] LABS: Basophils % (manual) 0 (0.0-2.0); Blast Cells 0; Eosinophils % (manual) 0 (0-7); Metamyelocytes % 0; Myelocytes % 0; Promyelocytes % 0; Reactive Lymphocytes 0
--- NOTE | 2024-10-20 05:37 | DVH ---
EXAM: XR Chest, 1 View CLINICAL INDICATION: Et intubation TECHNIQUE: Frontal view of the chest. COMPARISON: XY CHEST XRAY 1 VIEW on DOS: 10/19/24, XY CHEST XRAY 1 VIEW on DOS: 10/18/24, XY CHEST XR AY 1 VIEW on DOS: 10/18/24, XY CHEST PORTABLE on DOS: 10/17/24, XY CHEST XRAY 1 VIEW on DOS: 10/17/24 FINDINGS: LUNGS AND PLEURAL SPACES: See below. HEART: Cardiomegaly with mild congestion. MEDIASTINUM: Unremarkable. Normal mediastinal contour. BONES/JOINTS: Unremarkable. No acute fracture. TUBES, LINES AND DEVICES: Right internal jugular central venous catheter tip in the superior vena c pj. OTHER FINDINGS: . . IMPRESSION: Cardiomegaly with mild congestion.
[2024-10-20 06:29] LABS: Band Neutrophils % (manual) 3; Lymphocytes % (manual) 6 (10.0-50.0); Monocytes % (manual) 11 (0-12)
[2024-10-20 06:30] LABS: Anisocytosis Slight; Platelet Estimate Decreased
[2024-10-20] MEDS: POTASSIUM CHL 20MEQ/100ML 100 ML IV SCH (10:32)
[2024-10-20] MEDS: HYDROmorphone HCL 2 MG/ML VL/or syr IV PRN (12:01)
--- NOTE | 2024-10-20 17:24 | DVHPN2 ---
Subjective Date Seen: October 20, 2024 Post op day Post op day: 3 Objective Vitals Vital Sign Date Time Temp Pulse Resp B/P (MAP) Pulse Ox O2 Delivery O2 Flow Rate FiO2 10/20/24 17:11 98 20 138/99 10/20/24 13:15 97.7 93 97.7 10/20/24 12:00 Nasal Cannula* 4 36 Total Intake and Output 10/19/24 10/19/24 10/20/24 15:00 23:00 07:00 Intake Total 422.956 ml 545 ml 587 ml Output Total 2825 ml 2040 ml Balance 422.956 ml -2280 ml -1453 ml Medications Current Medications Medications Dose Ordered Sig/Kelvin Route Start Time Stop Time Status Last Admin Dose Admin Vancomycin HCl 200 ml @ 200 mls/hr Q12HR IV 10/16/24 22:00 UNV Enoxaparin Sodium 40 mg DAILY SC 10/17/24 10:00 UNV Pantoprazole Sodium 40 mg DAILY IV 10/16/24 21:00 10/20/24 10:28 40 MG Thiamine HCl 100 mg DAILY IV 10/17/24 10:00 10/20/24 10:32 100 MG Folic Acid 1 mg/ Dextrose 50.2 ml @ 200.8 mls/ hr DAILY INJ 10/17/24 10:00 10/20/24 10:31 200.8 MLS/HR Meropenem 50 ml @ 17 mls/hr Q8HR IV 10/17/24 06:00 10/20/24 14:00 17 MLS/HR Vancomycin HCl 0 ml @ 0 mls/hr UD IV 10/17/24 07:30 Methylprednisolone Sodium Succinate 40 mg BID IV 10/17/24 22:00 10/20/24 10:31 40 MG Iron Sucrose 110 ml @ 110 mls/hr DAILY@1200 IV 10/18/24 12:00 10/22/24 12:59 10/20/24 15:46 110 MLS/HR Amino Acids 0 ml @ 0 mls/hr PER PHARMACY IV 10/17/24 19:15 Diagnostic Test (Pha) 1 strip Q6HR 10/18/24 18:00 10/20/24 11:54 1 STRIP Insulin Human Regular FOLLOW SLIDING SCALE Q6HR SC 10/18/24 18:00 10/20/24 12:01 4 UNITS Dextrose 50 ml UD IV 10/18/24 18:00 Amino Acids/ Electrolytes/ Dextrose 1,000 ml @ 41 mls/hr DAILY@2200 IV 10/18/24 22:00 10/19/24 22:34 41 MLS/HR Vancomycin HCl 150 ml @ 150 mls/hr Q8H IV 10/18/24 20:00 10/20/24 14:45 150 MLS/HR Furosemide 40 mg DAILY IV 10/19/24 10:00 10/20/24 10:31 40 MG Hydromorphone HCl 0.5 mg Q2HPRN PRN IV 10/20/24 11:30 10/20/24 17:11 0.5 MG General: Normal Labs and Microbiology Laboratory Tests 10/20/24 03:20 Test 10/20/24 03:20 Range/Units Serum Glucose 189 H 74-106 mg/dL Ass/Plan Labs and/or images reviewed: Labs reviewed by me Problem List Neurology Metabolic encephalopathy due to septic shock Sedoanalgesia 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 - currently ambulates with walker History of opioid use History of Pseudotumor cerebri symptomatic by visual disturbance - s/p gastric sleeve Continue with sedoanalgesia (fentanyl, Versed and ketamine) at the moment due to mechanically assisted ventilation On Fentanyl drip to avoid opioid withdrawal Cardiovascular NSTEMI probable type II Acute on diastolic congestive heart failure secondary to multiple blood transfusion (TACO) Ordered EKG Completed echocardiogram: LVEF 70%, hyperdynamic LV, normal RV function but could not rule out enlargement Required IV furosemide Respiratory Acute respiratory failure URI due to Influenza Currently under mechanical assisted ventilation (VCV VT 450 RR: 20 FIO 30% PEEP 5). Completed CPAP trial which was successful and extubated on pm of 10/19/2024 Gastrointestinal Toxic megacolon - S/p hemicolectomy and ileostomy Stercoral colitis Pancreatitis Pneumobilia Acute hepatitis History of ethanol abuse History of gastric sleeve surgery Completed abdomen and pelvis CT: Pneumobilia, pneumatosis coli in the right colon, gaseous and stool distention throughout colon, Small ascites, peripancreatic inflammation Currently under empiric IV antibiotics (Meropenem and Vancomycin) Genitourinary/Nephrology MORA hemodynamically mediated (VMN) Metabolic acidosis with increased AG (lactic acidosis) - Improved Required IV fluids, boluses and maintenance. Multiple transfusion of blood products Infectious Disease Septic shock secondary to toxic megacolon/colonic ischemia URI due to Influenza Awaiting results of culture Currently under empiric IV antibiotics (Meropenem and Vancomycin). No Oseltamivir, since it is PO Endocrine [place]'s disease Hypertriglyceridemia Hypothyroidism Dyslipidemia Received Hydrocortisone 200 mg once and maintenance 50 mg q6hs. Now on Methylprednisolone 40 mg IV bid Avoid propofol due to hypertriglyceridemia TSH within normal limits, no Levothyroxine in Med reconcile. Will hold on T4 treatment Hematology Severe normocytic Anemia with iron deficiency Acute blood loss Thrombocytopenia (questionable HIT I) Patient require multiple blood product transfusion (two PRBCs, one fresh frozen plasma, cryoprecipitate and platelets) Musculoskeletal Chronic back pain Ruled out pelvic fracture Currently on fentanyl drip. Avoid opiate withdrawal Due to recent mechanical fall, obtain pelvic x-ray which ruled out acute fracture Nutrition: NPO, on clinimix Prophylaxis: PUD (pantoprazole) and DVT (SCDs) Lines 10/17/2024 Avitia 10/17/2024 ET 10/17/2024 Right IJ CVC 10/17/2024 RUPERT drain Drips Midazolam 0 Fentanyl 0 IV fluids Discontinued Ketamine 0 Precedex 0.03 Norepinephrine 0 Clinimix 42 Goals of care discussed with (Derrell) for over 18 minutes: Full code status Discussed plan with Dr. Hernandez, family and nurses: Patient is currently ICU status, s/p hemicolectomy and ileostomy, on mechanical assisted ventilation, empiric IV antibiotic, requiring multiple blood product transfusions, IV iron, NPO, on Clinimix. Pending culture results. Presented fluid overload, discontinued IV fluids and indicated IV diuretics. Patient completed successful CPAP trial, finally extubating her on the p.m. of 10/19/2024. We will advance diet once surgeon agrees. Patient has poor prognosis. Critical care time spent including discussion with nursing and family, including CPAP trial and excluding procedures: 126 minutes Assessment/Plan s/p right hemicolectomy POD # 3 patient extubated vitals ok labs ok afebrile Plan: NPO continue IV antibiotics Prognosis: Good Plan discussed with Eliana Visit Coding Surgery Date of Service if different f: October 20, 2024 Billing Provider: MIRIAM ARCHIBALD MD Surgery Visit Codes: [id number] INP/OBS CARE(HIGH) BETH CALDERON HAND FINISHER October 20, 2024 17:24
--- NOTE | 2024-10-20 20:29 | DVHPNRES ---
Progress Note Date Seen: October 20, 2024 Resident Creating Document: ENOC MATHIAS RESIDENT Medical Necessity Reason Pt with a Central, PICC or Fol: Yes The following are medically ne: Central Line, Avitia Catheter Subjective Review of Systems Juni Isidro is a 38-year-old female patient who presents to the ED with complaint of 4-day history of constipation and abdominal pain, followed by diarrhea after taking laxatives, associated with progressive dyspnea in functional class IV. Patient was diagnosed with toxic megacolon requiring urgent surgery (hemicolectomy with ileostomy), admitted to ICU. Patient currently ventilated, obtained review of systems and history from EMR and who is at bedside. 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 Surgical History: Hiatal hernia repair, Laparoscopic gastric sleeve, Multiple spine surgeries, Arthroscopic knee surgery Family history: Diabetes Social History: Lives in [place] with family. Former heavy ethanol use, currently ~2 drinks/day. Denies current tobacco and other drug abuse Allergies: Doxycycline Home medication: Olanzapine 5 mg PO daily, Morphine, Paicines 10 mg q4hs PRN, Losartan 100 mg PO daily, Meloxicam, Hydrocortisone 5 mg PO daily, Medroxyprogesterone 2.5 mg PO daily, Pregabalin 200 mg PO daily, Vitamin D 43456 PO weekly, Tizanidine 4 mg PO daily, Methocarbamol, Duloxetine 60 mg PO daily Patient seen and examined at bedside. Currently downgraded to Telemtry status, s/p hemicolectomy and ileostomy, extubated for approximately 24 hours. Optimize pain medication to avoid opiate withdrawal syndrome, patient's pain is more neuropathic due to Guillain-Maben syndrome. Patient would benefit from gabapentin or pregabalin but patient does not tolerate medication due to confusion. A good option may be amitriptyline, but patient is currently NPO. quality specialist planning on advancing to clear liquid diet on 10/21/2024. Continues with central line for IV nutrition with Clinimix. Objective vital signs Vital Sign Date Time Temp Pulse Resp B/P (MAP) Pulse Ox O2 Delivery O2 Flow Rate FiO2 10/20/24 17:41 87 22 138/88 10/20/24 16:30 98.0 97 98.0 10/20/24 12:00 Nasal Cannula* 4 36 Total Intake and Output 10/19/24 10/19/24 10/20/24 15:00 23:00 07:00 Intake Total 422.956 ml 545 ml 587 ml Output Total 2825 ml 2040 ml Balance 422.956 ml -2280 ml -1453 ml medications Current Medications Medications Dose Ordered Sig/Kelvin Route Start Time Stop Time Status Last Admin Dose Admin Vancomycin HCl 200 ml @ 200 mls/hr Q12HR IV 10/16/24 22:00 UNV Enoxaparin Sodium 40 mg DAILY SC 10/17/24 10:00 UNV Pantoprazole Sodium 40 mg DAILY IV 10/16/24 21:00 10/20/24 10:28 40 MG Thiamine HCl 100 mg DAILY IV 10/17/24 10:00 10/20/24 10:32 100 MG Folic Acid 1 mg/ Dextrose 50.2 ml @ 200.8 mls/ hr DAILY INJ 10/17/24 10:00 10/20/24 10:31 200.8 MLS/HR Meropenem 50 ml @ 17 mls/hr Q8HR IV 10/17/24 06:00 10/20/24 14:00 17 MLS/HR Vancomycin HCl 0 ml @ 0 mls/hr UD IV 10/17/24 07:30 Methylprednisolone Sodium Succinate 40 mg BID IV 10/17/24 22:00 10/20/24 10:31 40 MG Iron Sucrose 110 ml @ 110 mls/hr DAILY@1200 IV 10/18/24 12:00 10/22/24 12:59 10/20/24 15:46 110 MLS/HR Amino Acids 0 ml @ 0 mls/hr PER PHARMACY IV 10/17/24 19:15 Diagnostic Test (Pha) 1 strip Q6HR 10/18/24 18:00 10/20/24 17:24 1 STRIP Insulin Human Regular FOLLOW SLIDING SCALE Q6HR SC 10/18/24 18:00 10/20/24 17:24 4 UNITS Dextrose 50 ml UD IV 10/18/24 18:00 Amino Acids/ Electrolytes/ Dextrose 1,000 ml @ 41 mls/hr DAILY@2200 IV 10/18/24 22:00 10/19/24 22:34 41 MLS/HR Furosemide 40 mg DAILY IV 10/19/24 10:00 10/20/24 10:31 40 MG Hydromorphone HCl 0.5 mg Q2HPRN PRN IV 10/20/24 11:30 10/20/24 17:11 0.5 MG Examination Patient lying in bed, in no acute distress General: Lucid, afebrile, mucosae are moist Cardiovascular: Normal S1 and S2. No murmurs, gallops or rubs Respiratory: Normal ventilation mechanics. Clear lung sounds on auscultation Abdomen: Mildly distended, Laparotomy surgical wound with no significant secretions, RUPERT drain with serosanguinous debit, stoma of Ileostomy seems viable with brown stool in cholostomy bag, no organomegaly, reduced bowel sounds MSK/skin: Mobilizes 4 limbs. Skin is dry and warm Neurological: Oriented in 3 spheres. No motor no sensitive deficits. Pupils are isocoric and reactive laboratory and microbiology Laboratory Tests 10/20/24 03:20 Test 10/20/24 03:20 Range/Units Serum Glucose 189 H 74-106 mg/dL Microbiology Date/Time Source Procedure Growth Status 10/17/24 18:48 Sputum Endotracheal Wash Gram Stain - Final Resulted 10/17/24 18:48 Sputum Endotracheal Wash Respiratory Culture - Preliminary Resulted 10/17/24 18:20 Nose MRSA Screen - Final Complete 10/17/24 01:25 Voided Urine Urine Culture - Final Complete 10/16/24 16:12 Blood Blood Culture - Preliminary NO GROWTH AFTER 72 HOURS OF INCUBATION. Resulted Problem List/Assessment/Plan Problem List/Assessment/Plan Neurology Metabolic encephalopathy due to septic shock Sedoanalgesia History of Guillian-Maben syndrome - currently ambulates with walker History of opioid use History of Pseudotumor cerebri symptomatic by visual disturbance - s/p gastric sleeve Continue with sedoanalgesia (fentanyl, Versed and ketamine) at the moment due to mechanically assisted ventilation On Fentanyl drip to avoid opioid withdrawal Cardiovascular NSTEMI probable type II Acute on diastolic congestive heart failure Completed echocardiogram: LVEF 70%, hyperdynamic LV, normal RV function but could not rule out enlargement Required IV furosemide Respiratory Acute respiratory failure - extubated URI due to Influenza Currently extubated on 10/19/2024, on oxygen therapy with nasal canula at 3 L/min Gastrointestinal Toxic megacolon - S/p hemicolectomy and ileostomy Stercoral colitis Pancreatitis Pneumobilia Acute hepatitis History of ethanol abuse History of gastric sleeve surgery Completed abdomen and pelvis CT: Pneumobilia, pneumatosis coli in the right colon, gaseous and stool distention throughout colon, Small ascites, peripancreatic inflammation Currently under empiric IV antibiotics (Meropenem and Vancomycin) quality specialist on 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 Planning on initiating clear liquid diet on 10/21/2024 Genitourinary/Nephrology MORA hemodynamically mediated (VMN) Metabolic acidosis with increased AG (lactic acidosis) - Improved Required IV fluids, boluses and maintenance. Multiple transfusion of blood products Infectious Disease Septic shock secondary to toxic megacolon/colonic ischemia URI due to Influenza Awaiting results of culture Currently under empiric IV antibiotics (Meropenem and Vancomycin). No Oseltamivir, since it is PO Endocrine [place]'s disease Hypertriglyceridemia Hypothyroidism Dyslipidemia Received Hydrocortisone 200 mg once and maintenance 50 mg q6hs. Now on Methylprednisolone 40 mg IV bid Avoid propofol due to hypertriglyceridemia TSH within normal limits, no Levothyroxine in Med reconcile. Will hold on T4 treatment Hematology Severe normocytic Anemia with iron deficiency Acute blood loss Thrombocytopenia (questionable HIT I) Patient require multiple blood product transfusion (two PRBCs, one fresh frozen plasma, cryoprecipitate and platelets) Musculoskeletal Chronic back pain Neuropathic pain post Guillain-Maben syndrome Ruled out pelvic fracture Currently on fentanyl drip. Avoid opiate withdrawal Due to recent mechanical fall, obtain pelvic x-ray which ruled out acute fracture Continue with IV opioids. Patient does not tolerate gabapentin or pregabalin. May benefit from amitriptyline once patient can tolerate p.o. diet. Ordered physical therapy evaluation. Nutrition: NPO, on clinimix Prophylaxis: PUD (pantoprazole) and DVT (SCDs) Lines 10/17/2024 Avitia 10/17/2024 ET extubated 10/19/2024 10/17/2024 Right IJ CVC 10/17/2024 RUPERT drain Drips Clinimix 42 Goals of care discussed with (Derrell) for over 18 minutes: Full code status Discussed plan with Dr. Higgins, family and nurses: Patient is currently ICU status, s/p hemicolectomy and ileostomy, extubated, empiric IV antibiotic, requiring multiple blood product transfusions, IV iron, NPO, on Clinimix. Pending culture results. Presented fluid overload, discontinued IV fluids and indicated IV diuretics. Patient is on IV opiates, she will benefit from p.o. medication like amitriptyline (does not tolerate gabapentin nor pregabalin), she describes pain as neuropathic. We will advance diet once surgeon agrees, planning on advancing to clear liquid diet on 10/21/2024, once patient tolerates oral intake we will discontinue central line, we will continue right now due to requirement of Clinimix. Will DC Vancomycin on 10/21/2024. Critical care time spent including discussion with nursing and family, excluding procedures: 89 minutes Plan discussed with: Patient, Spouse, Other (Nurses) My Orders My Orders Orders - ENOC MATHIAS Procedure Category Date Status Time Hydromorphone PHA 10/20/24 In Process Injection (Dilaudid 11:30 Pt Request For Service PT 10/20/24 Logged 11:33 Transfer Orders XFER 10/20/24 Transmitted 11:33 Vancomycin Per [facility] 10/20/24 In Process Pharmacy Protoc 19:00 Comprehensive LAB 10/21/24 Verified Metabolic Panel 04:00 Magnesium LAB 10/21/24 Verified 04:00 Phosphorus LAB 10/21/24 Verified 04:00 Clinimix Per Pharmacy [facility] 10/20/24 In Process 22:00 Dietary Evaluation Review Comments: 1. Advance TPN to meet at least 75% of estimated needs 2. If GI route is accessible, TF Vital HP @ 70ml/hr x 24hr (goal). Start @ 20ml/hr, increase 10ml/hr Q$H until goal is reached. Water flush 50ml Q6H if allowed. 3. monitor electrolyte, triglycerides, PN tolerance, body weight change, skin integrity. Expected Outcomes/Goals: To meet at least 75% estimated needs within 7 days FU 2-3 days Date of Service: October 20, 2024 Billing Provider: NGOC HIGGINS MD Common Visit Codes: [id number] CARE 30-74 MIN, [id number] CARE-EACH +30MIN ENOC MATHIAS October 20, 2024 20:29 NGOC HIGGINS MD October 23, 2024 21:56
[2024-10-20] MEDS: VANCOMYCIN 1.5GM/300ML 300 ML IV SCH (21:24)
[2024-10-21] VITALS (8 sets, daily range): BP systolic 117–152; BP diastolic 86–99; PULSE 94–121; RESP 15–20; TEMP 97.7–98.3; O2SAT 92–98
[2024-10-21] MEDS: HYDROmorphone HCL 2 MG/ML VL/or syr IV ONE (00:23)
[2024-10-21] MEDS: METOCLOPRAMIDE HCL 5MG/ml INJ 2ml VIAL IV ONE ×2 (02:52→12:36)
[2024-10-21 05:50] LABS: Hematocrit 30.9 % (36.0-46.0); Hemoglobin 10.1 g/dL (12.2-16.2); Mean Corpuscular Hemoglobin 28.9 pg (28.0-32.0); Mean Corpuscular Hgb Conc. 32.7 g/dL (32.0-36.0); Mean Corpuscular Volume 88.3 fL (80.0-100.0); Platelet Count (auto) 99 10^3/uL (140-450)
[2024-10-21 05:56] LABS: Albumin 3.2 g/dL (3.2-4.8); Anion Gap 8 (5-15); BUN/Creatinine Ratio 23.1 (10.0-20.0); Carbon Dioxide 28 mmol/L (20-31); Chloride 102 mmol/L (98-107); Magnesium 1.8 mg/dL (1.6-2.6); Sodium 138 mmol/L (136-145)
[2024-10-21 05:57] LABS: Bilirubin, Total 0.6 mg/dL (0.2-1.0)
[2024-10-21 06:07] LABS: Alanine Aminotransferase 80 U/L (7-40); Alkaline Phosphatase 196 U/L (46-116); Aspartate Aminotransferase 96 U/L (13-40); Blood Urea Nitrogen 9 mg/dL (9-23); Calcium 8.5 mg/dL (8.7-10.4); Glucose 152 mg/dL (74-106); Potassium 3.2 mmol/L (3.5-5.1); Total Protein 5.7 g/dL (5.7-8.2)
[2024-10-21 07:22] LABS: Red Cell Distribution Width 20.6 % (11.8-14.3)
[2024-10-21 07:24] LABS: Basophils % (manual) 0 (0.0-2.0); Blast Cells 0; Eosinophils % (manual) 0 (0-7); Myelocytes % 0; Promyelocytes % 0; Reactive Lymphocytes 0
--- NOTE | 2024-10-21 10:49 | DVH ---
CHEST RADIOGRAPH Indication: Et intubation Technique: Frontal view of the chest. Comparison: XY CHEST XRAY 1 VIEW on DOS: 10/20/24, XY CHEST XRAY 1 VIEW on DOS: 10/19/24, XY CHEST XRAY 1 VIEW on DOS: 10/18/24, XY CHEST XRAY 1 VIEW on DOS: 10/18/24, XY CHEST PORTABLE on DOS: 10/17/24, XY CHEST XRAY 1 VIEW on DOS: 10/20/24 FINDINGS: LUNGS AND PLEURAL SPACES: See below. HEART: Cardiomegaly with mild congestion. MEDIASTINUM: Unremarkable. Normal mediastinal contour. BONES/JOINTS: Unremarkable. No acute fracture. TUBES, LINES AND DEVICES: Right internal jugular central venous catheter tip in the superior vena c pj. IMPRESSION: Cardiomegaly with mild congestion.
[2024-10-21 10:50] LABS: Anisocytosis Slight; Band Neutrophils % (manual) 11; Lymphocytes % (manual) 9 (10.0-50.0); Metamyelocytes % 6; Monocytes % (manual) 7 (0-12); Platelet Estimate Decreased
--- NOTE | 2024-10-21 10:54 | DVHPN2 ---
Subjective Date Seen: October 21, 2024 Post op day Post op day: 5 General: Normal HNT: Normal Cardiovascular: Normal Respiratory: Normal Gastrointestinal: Nausea Genitourinary: Normal Musculoskeletal: Normal Neurological: Normal Objective Vitals Vital Sign Date Time Temp Pulse Resp B/P (MAP) Pulse Ox O2 Delivery O2 Flow Rate FiO2 10/21/24 09:08 98 18 136/95 10/21/24 09:00 98.0 96 98.0 10/21/24 08:00 Nasal Cannula* 4 36 Total Intake and Output 10/20/24 10/20/24 10/21/24 15:00 23:00 07:00 Intake Total 522.8 ml 685 ml 50 ml Output Total 3620 ml 950 ml 700 ml Balance -3097.2 ml -265 ml -650 ml Medications Current Medications Medications Dose Ordered Sig/Kelvin Route Start Time Stop Time Status Last Admin Dose Admin Vancomycin HCl 200 ml @ 200 mls/hr Q12HR IV 10/16/24 22:00 UNV Enoxaparin Sodium 40 mg DAILY SC 10/17/24 10:00 UNV Pantoprazole Sodium 40 mg DAILY IV 10/16/24 21:00 10/21/24 08:37 40 MG Thiamine HCl 100 mg DAILY IV 10/17/24 10:00 10/21/24 08:37 100 MG Folic Acid 1 mg/ Dextrose 50.2 ml @ 200.8 mls/ hr DAILY INJ 10/17/24 10:00 10/20/24 10:31 200.8 MLS/HR Meropenem 50 ml @ 17 mls/hr Q8HR IV 10/17/24 06:00 10/21/24 06:15 17 MLS/HR Methylprednisolone Sodium Succinate 40 mg BID IV 10/17/24 22:00 10/21/24 08:37 40 MG Iron Sucrose 110 ml @ 110 mls/hr DAILY@1200 IV 10/18/24 12:00 10/22/24 12:59 10/20/24 15:46 110 MLS/HR Amino Acids 0 ml @ 0 mls/hr PER PHARMACY IV 10/17/24 19:15 Diagnostic Test (Pha) 1 strip Q6HR 10/18/24 18:00 10/21/24 06:15 1 STRIP Insulin Human Regular FOLLOW SLIDING SCALE Q6HR SC 10/18/24 18:00 10/21/24 06:23 2 UNITS Dextrose 50 ml UD IV 10/18/24 18:00 Amino Acids/ Electrolytes/ Dextrose 1,000 ml @ 41 mls/hr DAILY@2200 IV 10/18/24 22:00 10/20/24 21:25 41 MLS/HR Furosemide 40 mg DAILY IV 10/19/24 10:00 10/21/24 08:37 40 MG Hydromorphone HCl 0.5 mg Q2HPRN PRN IV 10/20/24 11:30 10/21/24 08:38 0.5 MG Potassium Chloride 100 ml @ 50 mls/hr Q2H IV 10/21/24 10:30 10/21/24 18:29 UNV Magnesium Sulfate/ Dextrose 100 ml @ 100 mls/hr Q1HR IV 10/21/24 11:00 10/21/24 12:59 UNV General: Normal Head/Eyes: Normal ENT: Normal Neck: Normal Lungs: Normal Cardiovascular: Normal, Regular rate and rhythm Abdominal: Normal, No distension, Other (RUPERT drain ) Labs and Microbiology Laboratory Tests 10/21/24 05:21 Test 10/21/24 05:21 Range/Units Serum Glucose 152 H 74-106 mg/dL Ass/Plan Labs and/or images reviewed: Labs reviewed by me Problem List Neurology Metabolic encephalopathy due to septic shock Sedoanalgesia History of Guillian-Meridian syndrome - currently ambulates with walker History of opioid use History of Pseudotumor cerebri symptomatic by visual disturbance - s/p gastric sleeve Continue with sedoanalgesia (fentanyl, Versed and ketamine) at the moment due to mechanically assisted ventilation On Fentanyl drip to avoid opioid withdrawal Cardiovascular NSTEMI probable type II Acute on diastolic congestive heart failure Completed echocardiogram: LVEF 70%, hyperdynamic LV, normal RV function but could not rule out enlargement Required IV furosemide Respiratory Acute respiratory failure - extubated URI due to Influenza Currently extubated on 10/19/2024, on oxygen therapy with nasal canula at 3 L/min Gastrointestinal Toxic megacolon - S/p hemicolectomy and ileostomy Stercoral colitis Pancreatitis Pneumobilia Acute hepatitis History of ethanol abuse History of gastric sleeve surgery Completed abdomen and pelvis CT: Pneumobilia, pneumatosis coli in the right colon, gaseous and stool distention throughout colon, Small ascites, peripancreatic inflammation Currently under empiric IV antibiotics (Meropenem and Vancomycin) commodity specialist on 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 Planning on initiating clear liquid diet on 10/21/2024 Genitourinary/Nephrology MORA hemodynamically mediated (VMN) Metabolic acidosis with increased AG (lactic acidosis) - Improved Required IV fluids, boluses and maintenance. Multiple transfusion of blood products Infectious Disease Septic shock secondary to toxic megacolon/colonic ischemia URI due to Influenza Awaiting results of culture Currently under empiric IV antibiotics (Meropenem and Vancomycin). No Oseltamivir, since it is PO Endocrine [place]'s disease Hypertriglyceridemia Hypothyroidism Dyslipidemia Received Hydrocortisone 200 mg once and maintenance 50 mg q6hs. Now on Methylprednisolone 40 mg IV bid Avoid propofol due to hypertriglyceridemia TSH within normal limits, no Levothyroxine in Med reconcile. Will hold on T4 treatment Hematology Severe normocytic Anemia with iron deficiency Acute blood loss Thrombocytopenia (questionable HIT I) Patient require multiple blood product transfusion (two PRBCs, one fresh frozen plasma, cryoprecipitate and platelets) Musculoskeletal Chronic back pain Neuropathic pain post Guillain-Meridian syndrome Ruled out pelvic fracture Currently on fentanyl drip. Avoid opiate withdrawal Due to recent mechanical fall, obtain pelvic x-ray which ruled out acute fracture Continue with IV opioids. Patient does not tolerate gabapentin or pregabalin. May benefit from amitriptyline once patient can tolerate p.o. diet. Ordered physical therapy evaluation. Nutrition: NPO, on clinimix Prophylaxis: PUD (pantoprazole) and DVT (SCDs) Lines 10/17/2024 Avitia 10/17/2024 ET extubated 10/19/2024 10/17/2024 Right IJ CVC 10/17/2024 RUPERT drain Drips Clinimix 42 Goals of care discussed with (Derrell) for over 18 minutes: Full code status Discussed plan with Dr. Hernandez, family and nurses: Patient is currently ICU status, s/p hemicolectomy and ileostomy, extubated, empiric IV antibiotic, requiring multiple blood product transfusions, IV iron, NPO, on Clinimix. Pending culture results. Presented fluid overload, discontinued IV fluids and indicated IV diuretics. Patient is on IV opiates, she will benefit from p.o. medication like amitriptyline (does not tolerate gabapentin nor pregabalin), she describes pain as neuropathic. We will advance diet once surgeon agrees, planning on advancing to clear liquid diet on 10/21/2024, once patient tolerates oral intake we will discontinue central line, we will continue right now due to requirement of Clinimix. Will DC Vancomycin on 10/21/2024. Critical care time spent including discussion with nursing and family, excluding procedures: 89 minutes Assessment/Plan s/p right hemicolectomy POD # 3 patient extubated vitals ok labs ok afebrile Plan: NPO continue IV antibiotics 10/22/24 s/p right hemicolectomy POD #5 patient complaint of nausea vitals ok labs ok afebrile abdomen soft, non distended, RUPERT drain serous fluid wound clean dry and intact Plan: NPO continue IV antibiotics and hydration Prognosis: Good Plan discussed with Dr. Platt Visit Coding Surgery Date of Service if different f: October 21, 2024 Billing Provider: PAO PLATT MD Surgery Visit Codes: [id number] INP/OBS CARE(HIGH) BETH CALDERON [employer] October 21, 2024 10:54
[2024-10-21] MEDS: LORazepam 2MG/ML-1ML VIAL IV PRN (11:41)
[2024-10-21] MEDS: POTASSIUM CHL 20MEQ/100ML 100 ML IV SCH (11:43)
[2024-10-21] MEDS: MAGNESIUM SULFATE 1GM/100ML 100 ML IV SCH (12:24)
[2024-10-21] MEDS: KETOROLAC TROMETH 30 MG/ML 1ML VIAL IV PRN (12:36)
[2024-10-21 12:51] LABS: Urine Bacteria None Seen /hpf (None Seen)
[2024-10-21 13:08] LABS: Urine Blood TRACE /uL (Negative); Urine Clarity Turbid (Clear); Urine Color Light-Yellow (Yellow); Urine Mucus FEW (None Seen); Urine Protein, UAD TRACE (Negative); Urine Specific Gravity 1.033 (1.001-1.035); Urine Squamous Epithelial Cell None Seen /hpf (<5); Urine Urobilinogen Normal (Negative); Urine WBC 4 /HPF (0-5); Urine pH 5.5 (5.0-9.0)
[2024-10-21] MEDS: METHYLNALTREXONE BROMIDE 12 MG/0.6 ML VIAL SC SCH (17:00)
--- NOTE | 2024-10-21 17:04 | DVHPNRES ---
Progress Note Date Seen: October 21, 2024 Resident Creating Document: ENOC MATHIAS RESIDENT Medical Necessity Reason Pt with a Central, PICC or Fol: Yes The following are medically ne: Central Line, Avitia Catheter Subjective Review of Systems Juni Isidro is a 38-year-old female patient who presents to the ED with complaint of 4-day history of constipation and abdominal pain, followed by diarrhea after taking laxatives, associated with progressive dyspnea in functional class IV. Patient was diagnosed with toxic megacolon requiring urgent surgery (hemicolectomy with ileostomy), admitted to ICU. Patient currently ventilated, obtained review of systems and history from EMR and who is at bedside. 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 Surgical History: Hiatal hernia repair, Laparoscopic gastric sleeve, Multiple spine surgeries, Arthroscopic knee surgery Family history: Diabetes Social History: Lives in [place] with family. Former heavy ethanol use, currently ~2 drinks/day. Denies current tobacco and other drug abuse Allergies: Doxycycline Home medication: Olanzapine 5 mg PO daily, Morphine, [place] 10 mg q4hs PRN, Losartan 100 mg PO daily, Meloxicam, Hydrocortisone 5 mg PO daily, Medroxyprogesterone 2.5 mg PO daily, Pregabalin 200 mg PO daily, Vitamin D 40496 PO weekly, Tizanidine 4 mg PO daily, Methocarbamol, Duloxetine 60 mg PO daily Patient seen and examined at bedside. Currently downgraded to Telemtry status, s/p hemicolectomy and ileostomy, extubated for approximately 24 hours. Optimize pain medication to avoid opiate withdrawal syndrome, patient's pain is more neuropathic due to Guillain-Hessel syndrome. Patient would benefit from gabapentin or pregabalin but patient does not tolerate medication due to confusion. A good option may be amitriptyline, but patient is currently NPO. crop specialist planning on advancing to clear liquid diet on 10/21/2024. Continues with central line for IV nutrition with Clinimix. Patient presented nausea today in context of continue with IV opiate since patient has high dependence on opiates. Indicated methyl naltrexone to manage opiate induced constipation. Also indicated IV Ketoralac and Reglan. Patient is still is complaining of pain. Objective vital signs Vital Sign Date Time Temp Pulse Resp B/P (MAP) Pulse Ox O2 Delivery O2 Flow Rate FiO2 10/21/24 14:56 82 16 140/80 10/21/24 13:00 98.0 92 98.0 10/21/24 08:00 Nasal Cannula* 4 36 Total Intake and Output 10/20/24 10/20/24 10/21/24 15:00 23:00 07:00 Intake Total 522.8 ml 685 ml 50 ml Output Total 3620 ml 950 ml 700 ml Balance -3097.2 ml -265 ml -650 ml medications Current Medications Medications Dose Ordered Sig/Kelvin Route Start Time Stop Time Status Last Admin Dose Admin Vancomycin HCl 200 ml @ 200 mls/hr Q12HR IV 10/16/24 22:00 UNV Enoxaparin Sodium 40 mg DAILY SC 10/17/24 10:00 UNV Pantoprazole Sodium 40 mg DAILY IV 10/16/24 21:00 10/21/24 08:37 40 MG Thiamine HCl 100 mg DAILY IV 10/17/24 10:00 10/21/24 08:37 100 MG Folic Acid 1 mg/ Dextrose 50.2 ml @ 200.8 mls/ hr DAILY INJ 10/17/24 10:00 10/20/24 10:31 200.8 MLS/HR Meropenem 50 ml @ 17 mls/hr Q8HR IV 10/17/24 06:00 10/21/24 16:53 17 MLS/HR Methylprednisolone Sodium Succinate 40 mg BID IV 10/17/24 22:00 10/21/24 08:37 40 MG Iron Sucrose 110 ml @ 110 mls/hr DAILY@1200 IV 10/18/24 12:00 10/22/24 12:59 10/21/24 14:42 110 MLS/HR Amino Acids 0 ml @ 0 mls/hr PER PHARMACY IV 10/17/24 19:15 Diagnostic Test (Pha) 1 strip Q6HR 10/18/24 18:00 10/21/24 11:53 1 STRIP Insulin Human Regular FOLLOW SLIDING SCALE Q6HR SC 10/18/24 18:00 10/21/24 06:23 2 UNITS Dextrose 50 ml UD IV 10/18/24 18:00 Amino Acids/ Electrolytes/ Dextrose 1,000 ml @ 41 mls/hr DAILY@2200 IV 10/18/24 22:00 10/20/24 21:25 41 MLS/HR Furosemide 40 mg DAILY IV 10/19/24 10:00 10/21/24 08:37 40 MG Hydromorphone HCl 0.5 mg Q2HPRN PRN IV 10/20/24 11:30 10/21/24 14:26 0.5 MG Potassium Chloride 100 ml @ 50 mls/hr Q2H IV 10/21/24 10:30 10/21/24 18:29 10/21/24 11:43 50 MLS/HR Lorazepam 1 mg Q2HP PRN IV 10/21/24 11:00 10/21/24 11:41 1 MG Ketorolac Tromethamine 15 mg Q6HPRN PRN IV 10/21/24 11:00 10/26/24 10:59 10/21/24 12:36 15 MG Metoclopramide HCl 5 mg Q8HPRN PRN IV 10/21/24 11:00 Examination Patient lying in bed, in no acute distress General: Lucid, afebrile, mucosae are moist Cardiovascular: Normal S1 and S2. No murmurs, gallops or rubs Respiratory: Normal ventilation mechanics. Clear lung sounds on auscultation Abdomen: Mildly distended, Laparotomy surgical wound with no significant secretions, RUPERT drain with serosanguinous debit, stoma of Ileostomy seems viable with brown stool in cholostomy bag, no organomegaly, reduced bowel sounds MSK/skin: Mobilizes 4 limbs. Skin is dry and warm Neurological: Oriented in 3 spheres. No motor no sensitive deficits. Pupils are isocoric and reactive laboratory and microbiology Laboratory Tests 10/21/24 05:21 Test 10/21/24 05:21 Range/Units Serum Glucose 152 H 74-106 mg/dL Microbiology Date/Time Source Procedure Growth Status 10/17/24 18:48 Sputum Endotracheal Wash Gram Stain - Final Complete 10/17/24 18:48 Sputum Endotracheal Wash Respiratory Culture - Final Complete 10/17/24 18:20 Nose MRSA Screen - Final Complete 10/17/24 01:25 Voided Urine Urine Culture - Final Complete 10/16/24 16:12 Blood Blood Culture - Final NO GROWTH AFTER 5 DAYS OF INCUBATION. Complete Problem List/Assessment/Plan Problem List/Assessment/Plan Neurology Metabolic encephalopathy due to septic shock Sedoanalgesia Opiod Dependence History of Guillian-Hessel syndrome - currently ambulates with walker History of opioid use History of Pseudotumor cerebri symptomatic by visual disturbance - s/p gastric sleeve Patient currently extubated. Is on high dose IV hydromorphone. Patient has high-risk of presenting opiate withdrawal syndrome Patient presented nausea and abdominal pain probably secondary to opiate adverse effect. Indicated methylnaltrexone Cardiovascular NSTEMI probable type II Acute on diastolic congestive heart failure Completed echocardiogram: LVEF 70%, hyperdynamic LV, normal RV function but could not rule out enlargement Required IV furosemide Respiratory Acute respiratory failure - extubated URI due to Influenza Currently extubated on 10/19/2024, on oxygen therapy with nasal canula at 3 L/min Gastrointestinal Toxic megacolon - S/p hemicolectomy and ileostomy Stercoral colitis Pancreatitis Pneumobilia Acute hepatitis History of ethanol abuse History of gastric sleeve surgery Completed abdomen and pelvis CT: Pneumobilia, pneumatosis coli in the right colon, gaseous and stool distention throughout colon, Small ascites, peripancreatic inflammation Currently under empiric IV antibiotics (Meropenem, previously Vancomycin) crop specialist on 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 Planning on initiating clear liquid diet once cleared by surgery Genitourinary/Nephrology M[place]A hemodynamically mediated (VMN) Metabolic acidosis with increased AG (lactic acidosis) - Improved Required IV fluids, boluses and maintenance. Multiple transfusion of blood products Infectious Disease Septic shock secondary to toxic megacolon/colonic ischemia URI due to Influenza Awaiting results of culture Currently under empiric IV antibiotics (Meropenem, previously Vancomycin). No Oseltamivir, since it is PO Endocrine [place]'s disease Hypertriglyceridemia Hypothyroidism Dyslipidemia Received Hydrocortisone 200 mg once and maintenance 50 mg q6hs. Now on Methylprednisolone 40 mg IV bid Avoid propofol due to hypertriglyceridemia TSH within normal limits, no Levothyroxine in Med reconcile. Will hold on T4 treatment Hematology Severe normocytic Anemia with iron deficiency Acute blood loss Thrombocytopenia (questionable HIT I) Patient require multiple blood product transfusion (two PRBCs, one fresh frozen plasma, cryoprecipitate and platelets) Musculoskeletal Chronic back pain Neuropathic pain post Guillain-Hessel syndrome Ruled out pelvic fracture Currently on fentanyl drip. Avoid opiate withdrawal Due to recent mechanical fall, obtain pelvic x-ray which ruled out acute fracture Continue with IV opioids. Patient does not tolerate gabapentin or pregabalin. May benefit from amitriptyline once patient can tolerate p.o. diet. Ordered physical therapy evaluation. Nutrition: NPO, on clinimix Prophylaxis: PUD (pantoprazole) and DVT (SCDs) Lines 10/17/2024 Avitia 10/17/2024 ET extubated 10/19/2024 10/17/2024 Right IJ CVC 10/17/2024 RUPERT drain Drips Clinimix 42 Goals of care discussed with (Derrell) for over 18 minutes: Full code status Discussed plan with Dr. Wolff, patient and nurses: Patient is currently Telemetry status, s/p hemicolectomy and ileostomy, extubated, empiric IV antibiotic, requiring multiple blood product transfusions, IV iron, NPO, on Clinimix. Pending culture results. Presented fluid overload, discontinued IV fluids and indicated IV diuretics. Patient is on IV opiates, she will benefit from p.o. medication like amitriptyline (does not tolerate gabapentin nor pregabalin), she describes pain as neuropathic. We will advance diet once surgeon agrees, planning on advancing to clear liquid diet once patient is not nauseas, once patient tolerates oral intake we will discontinue central line, we will continue right now due to requirement of Clinimix. DC Vancomycin on 10/21/2024. Patient's nausea and vomiting may be secondary to IV opioids, indicated methylnaltrexone to avoid opiate induced constipation. 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), Other (Nurses) My Orders My Orders Orders - ENOC MATHIAS RESIDENT Procedure Category Date Status Time Clinimix Per Pharmacy [facility] 10/20/24 In Process 22:00 Vancomycin Per [facility] 10/21/24 In Process Pharmacy Protoc 20:00 Potassium Chl [facility] 10/21/24 In Process 20meq/100ml 10:30 Potassium Phosphate [facility] 10/21/24 In Process 20:00 Lorazepam 2mg/Ml Inj [facility] 10/21/24 In Process (Ativan Inj) 11:00 Ketorolac Injection [facility] 10/21/24 In Process (Toradol Injection) 11:00 Metoclopramide [facility] 5/23/25 In Process Injection (Reglan 11:00 Comprehensive LAB 10/22/24 Verified Metabolic Panel 05:00 Phosphorus LAB 10/22/24 Verified 05:00 Magnesium LAB 10/22/24 Verified 05:00 Clinimix Per Pharmacy [facility] 10/21/24 In Process 22:00 Methylnaltrexone [facility] 10/21/24 Logged [place] (Relistor) 17:00 Dietary Evaluation Review Comments: 1. Advance TPN to meet at least 75% of estimated needs 2. If GI route is accessible, TF Vital HP @ 70ml/hr x 24hr (goal). Start @ 20ml/hr, increase 10ml/hr Q$H until goal is reached. Water flush 50ml Q6H if allowed. 3. monitor electrolyte, triglycerides, PN tolerance, body weight change, skin integrity. Expected Outcomes/Goals: To meet at least 75% estimated needs within 7 days FU 2-3 days ENOC MATHIAS RESIDENT October 21, 2024 17:04
[2024-10-21] MEDS: POTASSIUM PHOSPHATE 22 MEQ in SODIUM CHL 0.9% 100 ML IV ONE (20:00)
[2024-10-22] VITALS (8 sets, daily range): BP systolic 98–128; BP diastolic 20–97; PULSE 93–123; RESP 16–20; TEMP 97.3–98.6; O2SAT 96–99
[2024-10-22 07:29] LABS: Hematocrit 29.6 % (36.0-46.0); Hemoglobin 9.5 g/dL (12.2-16.2); Mean Corpuscular Hgb Conc. 32.1 g/dL (32.0-36.0); Mean Corpuscular Volume 90.3 fL (80.0-100.0); Platelet Count (auto) 127 10^3/uL (140-450); Red Blood Cells 3.28 10^6/uL (4.0-5.20); Red Cell Distribution Width 20.7 % (11.8-14.3); White Blood Cell 10.6 10^3/uL (4.4-10.8)
[2024-10-22 07:32] LABS: Basophils % (manual) 0 (0.0-2.0); Blast Cells 0; Eosinophils % (manual) 0 (0-7); Metamyelocytes % 0; Myelocytes % 0; Promyelocytes % 0; Reactive Lymphocytes 0
[2024-10-22 07:37] LABS: Anion Gap 10 (5-15); Blood Urea Nitrogen 12 mg/dL (9-23); Calcium 8.9 mg/dL (8.7-10.4); Carbon Dioxide 26 mmol/L (20-31); Chloride 104 mmol/L (98-107); Sodium 140 mmol/L (136-145)
[2024-10-22 07:38] LABS: Aspartate Aminotransferase 35 U/L (13-40); Phosphorus 3.2 mg/dL (2.4-5.1)
[2024-10-22 07:39] LABS: Bilirubin, Total 0.6 mg/dL (0.2-1.0)
[2024-10-22 07:43] LABS: Alanine Aminotransferase 58 U/L (7-40); Alkaline Phosphatase 168 U/L (46-116); Glucose 215 mg/dL (74-106); Total Protein 5.3 g/dL (5.7-8.2)
[2024-10-22 08:05] LABS: Anisocytosis Slight; Band Neutrophils % (manual) 2; Lymphocytes % (manual) 15 (10.0-50.0); Monocytes % (manual) 5 (0-12); Platelet Estimate Decreased; Stomatocytes Few
--- NOTE | 2024-10-22 11:16 | DVHPN2 ---
Subjective Date Seen: October 22, 2024 Post op day Post op day: 6 General: Normal HNT: Normal Cardiovascular: Normal Respiratory: Normal Gastrointestinal: Nausea Genitourinary: Normal Musculoskeletal: Normal Neurological: Normal Objective Vitals Vital Sign Date Time Temp Pulse Resp B/P (MAP) Pulse Ox O2 Delivery O2 Flow Rate FiO2 10/22/24 11:11 100 16 118/97 10/22/24 09:00 98.1 99 98.1 10/22/24 08:00 Nasal Cannula* 2 28 Total Intake and Output 10/21/24 10/21/24 10/22/24 15:00 23:00 07:00 Intake Total 50 ml 50 ml Output Total 100 ml 150 ml Balance -50 ml -150 ml 50 ml Medications Current Medications Medications Dose Ordered Sig/Kelvin Route Start Time Stop Time Status Last Admin Dose Admin Vancomycin HCl 200 ml @ 200 mls/hr Q12HR IV 10/16/24 22:00 UNV Enoxaparin Sodium 40 mg DAILY SC 10/17/24 10:00 UNV Pantoprazole Sodium 40 mg DAILY IV 10/16/24 21:00 10/22/24 09:03 40 MG Thiamine HCl 100 mg DAILY IV 10/17/24 10:00 10/22/24 09:02 100 MG Folic Acid 1 mg/ Dextrose 50.2 ml @ 200.8 mls/ hr DAILY INJ 10/17/24 10:00 10/20/24 10:31 200.8 MLS/HR Meropenem 50 ml @ 17 mls/hr Q8HR IV 10/17/24 06:00 10/22/24 06:21 17 MLS/HR Methylprednisolone Sodium Succinate 40 mg BID IV 10/17/24 22:00 10/22/24 09:03 40 MG Iron Sucrose 110 ml @ 110 mls/hr DAILY@1200 IV 10/18/24 12:00 10/22/24 12:59 10/21/24 14:42 110 MLS/HR Amino Acids 0 ml @ 0 mls/hr PER PHARMACY IV 10/17/24 19:15 Diagnostic Test (Pha) 1 strip Q6HR 10/18/24 18:00 10/22/24 06:00 1 STRIP Insulin Human Regular FOLLOW SLIDING SCALE Q6HR SC 10/18/24 18:00 10/22/24 06:30 4 UNITS Dextrose 50 ml UD IV 10/18/24 18:00 Amino Acids/ Electrolytes/ Dextrose 1,000 ml @ 41 mls/hr DAILY@2200 IV 10/18/24 22:00 10/21/24 22:46 41 MLS/HR Furosemide 40 mg DAILY IV 10/19/24 10:00 10/22/24 09:03 40 MG Hydromorphone HCl 0.5 mg Q2HPRN PRN IV 10/20/24 11:30 10/22/24 11:11 0.5 MG Lorazepam 1 mg Q2HP PRN IV 10/21/24 11:00 10/22/24 03:57 1 MG Metoclopramide HCl 5 mg Q8HPRN PRN IV 10/21/24 11:00 Methylnaltrexone [place] 8 mg Q2D SC 10/21/24 17:00 General: Normal Head/Eyes: Normal ENT: Normal Neck: Normal Lungs: Normal Cardiovascular: Normal, Regular rate and rhythm Abdominal: Normal, No distension, Other (RUPERT drain ) Labs and Microbiology Laboratory Tests 10/22/24 05:42 Test 10/22/24 05:42 Range/Units Serum Glucose 215 H 74-106 mg/dL Ass/Plan Labs and/or images reviewed: Labs reviewed by me Problem List Neurology Metabolic encephalopathy due to septic shock Sedoanalgesia Opiod Dependence History of Guillian-Baldwin syndrome - currently ambulates with walker History of opioid use History of Pseudotumor cerebri symptomatic by visual disturbance - s/p gastric sleeve Patient currently extubated. Is on high dose IV hydromorphone. Patient has high-risk of presenting opiate withdrawal syndrome Patient presented nausea and abdominal pain probably secondary to opiate adverse effect. Indicated methylnaltrexone Cardiovascular NSTEMI probable type II Acute on diastolic congestive heart failure Completed echocardiogram: LVEF 70%, hyperdynamic LV, normal RV function but could not rule out enlargement Required IV furosemide Respiratory Acute respiratory failure - extubated URI due to Influenza Currently extubated on 10/19/2024, on oxygen therapy with nasal canula at 3 L/min Gastrointestinal Toxic megacolon - S/p hemicolectomy and ileostomy Stercoral colitis Pancreatitis Pneumobilia Acute hepatitis History of ethanol abuse History of gastric sleeve surgery Completed abdomen and pelvis CT: Pneumobilia, pneumatosis coli in the right colon, gaseous and stool distention throughout colon, Small ascites, peripancreatic inflammation Currently under empiric IV antibiotics (Meropenem, previously Vancomycin) vector control specialist on 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 Planning on initiating clear liquid diet once cleared by surgery Genitourinary/Nephrology M[place]A hemodynamically mediated (VMN) Metabolic acidosis with increased AG (lactic acidosis) - Improved Required IV fluids, boluses and maintenance. Multiple transfusion of blood products Infectious Disease Septic shock secondary to toxic megacolon/colonic ischemia URI due to Influenza Awaiting results of culture Currently under empiric IV antibiotics (Meropenem, previously Vancomycin). No Oseltamivir, since it is PO Endocrine [place]'s disease Hypertriglyceridemia Hypothyroidism Dyslipidemia Received Hydrocortisone 200 mg once and maintenance 50 mg q6hs. Now on Methylprednisolone 40 mg IV bid Avoid propofol due to hypertriglyceridemia TSH within normal limits, no Levothyroxine in Med reconcile. Will hold on T4 treatment Hematology Severe normocytic Anemia with iron deficiency Acute blood loss Thrombocytopenia (questionable HIT I) Patient require multiple blood product transfusion (two PRBCs, one fresh frozen plasma, cryoprecipitate and platelets) Musculoskeletal Chronic back pain Neuropathic pain post Guillain-Baldwin syndrome Ruled out pelvic fracture Currently on fentanyl drip. Avoid opiate withdrawal Due to recent mechanical fall, obtain pelvic x-ray which ruled out acute fracture Continue with IV opioids. Patient does not tolerate gabapentin or pregabalin. May benefit from amitriptyline once patient can tolerate p.o. diet. Ordered physical therapy evaluation. Nutrition: NPO, on clinimix Prophylaxis: PUD (pantoprazole) and DVT (SCDs) Lines 10/17/2024 Avitia 10/17/2024 ET extubated 10/19/2024 10/17/2024 Right IJ CVC 10/17/2024 RUPERT drain Drips Clinimix 42 Goals of care discussed with (Derrell) for over 18 minutes: Full code status Discussed plan with Dr. Wolff, patient and nurses: Patient is currently Telemetry status, s/p hemicolectomy and ileostomy, extubated, empiric IV antibiotic, requiring multiple blood product transfusions, IV iron, NPO, on Clinimix. Pending culture results. Presented fluid overload, discontinued IV fluids and indicated IV diuretics. Patient is on IV opiates, she will benefit from p.o. medication like amitriptyline (does not tolerate gabapentin nor pregabalin), she describes pain as neuropathic. We will advance diet once surgeon agrees, planning on advancing to clear liquid diet once patient is not nauseas, once patient tolerates oral intake we will discontinue central line, we will continue right now due to requirement of Clinimix. DC Vancomycin on 10/21/2024. Patient's nausea and vomiting may be secondary to IV opioids, indicated methylnaltrexone to avoid opiate induced constipation. Assessment/Plan s/p right hemicolectomy POD # 3 patient extubated vitals ok labs ok afebrile Plan: NPO continue IV antibiotics 10/21/24 s/p right hemicolectomy POD #5 patient complaint of nausea vitals ok labs ok afebrile abdomen soft, non distended, RUPERT drain serous fluid wound clean dry and intact Plan: NPO continue IV antibiotics and hydration 10/22/24 s/p right hemicolectomy POD #6 vitals ok labs ok afebrile abdomen soft, non distended, RUPERT drain serous fluid wound clean dry and intact stoma pink , some bleeding (check coags), stoma bag changed Plan: clear liquids , small sips order cbc, coags, cmp stat DC toradol Dr. Aggarwal agrees with Plan Prognosis: Good Plan discussed with patient, nurse, , Dr. aggarwal Visit Coding Surgery Date of Service if different f: October 22, 2024 Billing Provider: PAO AGGARWAL MD Surgery Visit Codes: [id number] INP/OBS CARE(HIGH) BETH CALDERON NP October 22, 2024 11:16
--- NOTE | 2024-10-22 11:45 | DVH ---
XY CHEST XRAY 1 VIEW, HISTORY: Et intubation COMPARISON: XY CHEST XRAY 1 VIEW on DOS: 10/21/24, XY CHEST XRAY 1 VIEW on DOS: 10/20/24, XY CHEST XRAY 1 VIEW on DOS: 10/19/24 XY CHEST XRAY 1 VIEW on DOS: 10/21/24, XY CHEST XRAY 1 VIEW on DOS: 10/20/24, XY CHEST XRAY 1 VIEW on D OS: 10/19/24 TECHNICAL DATA: 1 view of the chest was obtained. FINDINGS: Lines and tubes: Venous catheter is seen in the SVC. Cardiomediastinal silhouette: Enlaregd Pulmonary vasculature: normal Lung expansion: low Lung airspace: Patchy left basilar airspace opacity. Lung interstitium: normal Pleura: normal Pneumothorax: no Bones: Unremarkable Other: no IMPRESSION: She left basilar airspace opacity with trace pleural fusion. Cardiomegaly. No endotracheal tube is vi sualized.
[2024-10-22 12:04] LABS: Basophils # (auto) 0 10 ^3/uL (0-0.2); Basophils % (auto) 0.2 % (0.0-2.0); Eosinophils # (auto) 0.1 10 ^3/uL (0-0.8); Hematocrit 30.6 % (36.0-46.0); Hemoglobin 10.1 g/dL (12.2-16.2); Lymphocytes # (auto) 1.3 10 ^3/uL (0.4-5.4); Lymphocytes % (auto) 11.4 % (10.0-50.0); Mean Corpuscular Hemoglobin 29.2 pg (28.0-32.0); Mean Corpuscular Volume 88.4 fL (80.0-100.0); Monocytes # (auto) 1.4 10 ^3/uL (0-1.3); Monocytes % (auto) 12.1 % (0.0-12.0); Neutrophils # (auto) 8.7 10 ^3/uL (1.6-8.6); Neutrophils % (auto) 75.3 % (37.0-80.0); Nucleated Red Blood Cells % 0.7 %; Platelet Count (auto) 145 10^3/uL (140-450); Red Blood Cells 3.47 10^6/uL (4.0-5.20); Red Cell Distribution Width 20.9 % (11.8-14.3); White Blood Cell 11.6 10^3/uL (4.4-10.8)
[2024-10-22 12:16] LABS: INR 1.16 (0.9-1.15); Prothrombin Time 12.1 sec (9.3-11.8)
[2024-10-22 12:20] LABS: Anion Gap 9 (5-15); Aspartate Aminotransferase 29 U/L (13-40); BUN/Creatinine Ratio 38.2 (10.0-20.0); Bilirubin, Total 0.6 mg/dL (0.2-1.0); Blood Urea Nitrogen 13 mg/dL (9-23); Carbon Dioxide 29 mmol/L (20-31); Chloride 102 mmol/L (98-107); Sodium 140 mmol/L (136-145)
[2024-10-22 12:29] LABS: Alanine Aminotransferase 56 U/L (7-40); Albumin 3.2 g/dL (3.2-4.8); Alkaline Phosphatase 162 U/L (46-116); Calcium 8.5 mg/dL (8.7-10.4); Glucose 128 mg/dL (74-106); Potassium 2.6 mmol/L (3.5-5.1); Total Protein 5.6 g/dL (5.7-8.2)
[2024-10-22] MEDS: POTASSIUM CHL 20MEQ/100ML 100 ML IV SCH (14:50)
--- NOTE | 2024-10-22 17:56 | DVHPN2 ---
Progress Note - Dictate Date Seen: October 22, 2024 Medical Necessity Reason Pt with a Central, PICC or Fol: Yes The following are medically ne: Central Line, Avitia Catheter vital signs Vital Sign Date Time Temp Pulse Resp B/P (MAP) Pulse Ox O2 Delivery O2 Flow Rate FiO2 10/22/24 17:18 104 16 112/76 10/22/24 16:52 98.2 98 98.2 10/22/24 08:00 Nasal Cannula* 2 28 Total Intake and Output 10/21/24 10/21/24 10/22/24 15:00 23:00 07:00 Intake Total 50 ml 50 ml Output Total 100 ml 150 ml Balance -50 ml -150 ml 50 ml medications Current Medications Medications Dose Ordered Sig/Kelvin Route Start Time Stop Time Status Last Admin Dose Admin Vancomycin HCl 200 ml @ 200 mls/hr Q12HR IV 10/16/24 22:00 UNV Enoxaparin Sodium 40 mg DAILY SC 10/17/24 10:00 UNV Pantoprazole Sodium 40 mg DAILY IV 10/16/24 21:00 10/22/24 09:03 40 MG Thiamine HCl 100 mg DAILY IV 10/17/24 10:00 10/22/24 09:02 100 MG Folic Acid 1 mg/ Dextrose 50.2 ml @ 200.8 mls/ hr DAILY INJ 10/17/24 10:00 10/22/24 10:00 200.8 MLS/HR Meropenem 50 ml @ 17 mls/hr Q8HR IV 10/17/24 06:00 10/22/24 14:00 17 MLS/HR Methylprednisolone Sodium Succinate 40 mg BID IV 10/17/24 22:00 10/22/24 09:03 40 MG Amino Acids 0 ml @ 0 mls/hr PER PHARMACY IV 10/17/24 19:15 Diagnostic Test (Pha) 1 strip Q6HR 10/18/24 18:00 10/22/24 17:39 1 STRIP Insulin Human Regular FOLLOW SLIDING SCALE Q6HR SC 10/18/24 18:00 10/22/24 17:44 2 UNITS Dextrose 50 ml UD IV 10/18/24 18:00 Amino Acids/ Electrolytes/ Dextrose 1,000 ml @ 41 mls/hr DAILY@2200 IV 10/18/24 22:00 10/21/24 22:46 41 MLS/HR Furosemide 40 mg DAILY IV 10/19/24 10:00 10/22/24 09:03 40 MG Hydromorphone HCl 0.5 mg Q2HPRN PRN IV 10/20/24 11:30 10/22/24 17:18 0.5 MG Lorazepam 1 mg Q2HP PRN IV 10/21/24 11:00 10/22/24 17:42 1 MG Metoclopramide HCl 5 mg Q8HPRN PRN IV 10/21/24 11:00 Methylnaltrexone [place] 8 mg Q2D SC 10/21/24 17:00 Potassium Chloride 100 ml @ 50 mls/hr Q2H IV 10/22/24 13:30 10/22/24 21:29 10/22/24 14:50 50 MLS/HR laboratory and microbiology Laboratory Tests 10/22/24 11:30 Test 10/22/24 11:30 Range/Units Serum Glucose 128 H 74-106 mg/dL Assessment/Plan Impression Acute hypoxemic respiratory failure Metabolic encephalopathy Hx of Guillain-[place] NSTEMI [facility] Patient seen and examined Events S/p extubation Low oxygen requirements On 3 liters nasal cannula No acute events Labs and imaging reviewed Management Supplemental oxygen Titrate to maintain sats 90% or above Incentive spirometry Continue antibiotics F/u cultures Bronchodilators Monitor renal function Monitor electrolytes Supplement as needed Pain control Avoid oversedation F/u cardiology DVT prophylaxis Dietary Evaluation Review Comments: 1. Advance TPN to meet at least 75% of estimated needs 2. If GI route is accessible, TF Vital HP @ 70ml/hr x 24hr (goal). Start @ 20ml/hr, increase 10ml/hr Q$H until goal is reached. Water flush 50ml Q6H if allowed. 3. monitor electrolyte, triglycerides, PN tolerance, body weight change, skin integrity. Expected Outcomes/Goals: To meet at least 75% estimated needs within 7 days FU 2-3 days Plan discussed with: Patient MICHAEL BOLTON MD October 22, 2024 17:56
--- NOTE | 2024-10-22 19:32 | DVHPN2 ---
Subjective in bed resting Changes from previous H/P or p: No Changes Objective Vitals Vital Signs Date Time Temp Pulse Resp B/P (MAP) Pulse Ox O2 Delivery O2 Flow Rate FiO2 10/22/24 17:18 104 16 112/76 10/22/24 16:52 98.2 98 98.2 10/22/24 08:00 Nasal Cannula* 2 28 Intake/Output Intake and Output 10/22/24 07:00 Intake Total 100 ml Output Total 250 ml Balance -150 ml IV Total 100 ml Drainage Total 100 ml Other 150 ml General Appearance: Alert, Oriented X3 Cardiovascular: Regular rate, Normal S1, Normal S2 Abdomen: Normal bowel sounds Medications Current Medications Medications Dose Ordered Sig/Kelvin Route Start Time Stop Time Status Last Admin Dose Admin Vancomycin HCl 200 ml @ 200 mls/hr Q12HR IV 10/16/24 22:00 UNV Enoxaparin Sodium 40 mg DAILY SC 10/17/24 10:00 UNV Pantoprazole Sodium 40 mg DAILY IV 10/16/24 21:00 10/22/24 09:03 40 MG Thiamine HCl 100 mg DAILY IV 10/17/24 10:00 10/22/24 09:02 100 MG Folic Acid 1 mg/ Dextrose 50.2 ml @ 200.8 mls/ hr DAILY INJ 10/17/24 10:00 10/22/24 10:00 200.8 MLS/HR Meropenem 50 ml @ 17 mls/hr Q8HR IV 10/17/24 06:00 10/22/24 14:00 17 MLS/HR Methylprednisolone Sodium Succinate 40 mg BID IV 10/17/24 22:00 10/22/24 09:03 40 MG Amino Acids 0 ml @ 0 mls/hr PER PHARMACY IV 10/17/24 19:15 Diagnostic Test (Pha) 1 strip Q6HR 10/18/24 18:00 10/22/24 17:39 1 STRIP Insulin Human Regular FOLLOW SLIDING SCALE Q6HR SC 10/18/24 18:00 10/22/24 17:44 2 UNITS Dextrose 50 ml UD IV 10/18/24 18:00 Amino Acids/ Electrolytes/ Dextrose 1,000 ml @ 41 mls/hr DAILY@2200 IV 10/18/24 22:00 10/21/24 22:46 41 MLS/HR Furosemide 40 mg DAILY IV 10/19/24 10:00 10/22/24 09:03 40 MG Hydromorphone HCl 0.5 mg Q2HPRN PRN IV 10/20/24 11:30 10/22/24 17:18 0.5 MG Lorazepam 1 mg Q2HP PRN IV 10/21/24 11:00 10/22/24 17:42 1 MG Metoclopramide HCl 5 mg Q8HPRN PRN IV 10/21/24 11:00 Methylnaltrexone [place] 8 mg Q2D SC 10/21/24 17:00 Potassium Chloride 100 ml @ 50 mls/hr Q2H IV 10/22/24 13:30 10/22/24 21:29 10/22/24 14:50 50 MLS/HR Laboratory Results Laboratory Tests 10/22/24 11:30 Chemistry Test 10/22/24 05:42 10/22/24 11:30 Albumin 3.0 g/dL (3.2-4.8) L 3.2 g/dL (3.2-4.8) Calcium Level 8.9 mg/dL (8.7-10.4) 8.5 mg/dL (8.7-10.4) L Magnesium Level 2.0 mg/dL (1.6-2.6) Phosphorus Level 3.2 mg/dL (2.4-5.1) Total Protein 5.3 g/dL (5.7-8.2) L 5.6 g/dL (5.7-8.2) L Coagulation Test 10/22/24 11:30 Prothrombin Time 12.1 sec (9.3-11.8) H Prothrombin Time INR 1.16 (0.9-1.15) H Activated Partial Thromboplast Time 27.0 SEC (24.5-34.5) LFT Test 10/22/24 05:42 10/22/24 11:30 Alanine Aminotransferase (ALT) 58 U/L (7-40) H 56 U/L (7-40) H Alkaline Phosphatase 168 U/L (46-116) H 162 U/L (46-116) H Aspartate Amino Transferase (AST) 35 U/L (13-40) 29 U/L (13-40) Total Bilirubin 0.6 mg/dL (0.2-1.0) 0.6 mg/dL (0.2-1.0) Urinalysis Test 10/17/24 01:25 10/21/24 12:25 Urine Hyaline Casts Few /lpf (0 - 2) Urine Creatinine 87.60 mg/dL (30.0-125.0) Urine Sodium 35 mmol/L (40-220) L Urine Total Protein 114.1 mg/dL (1-14) H Urine Test Negative (Negative) Urine Color Light-yellow (Yellow) Urine Clarity Turbid (Clear) H Urine pH 5.5 (5.0-9.0) Urine Specific [place] 1.033 (1.001-1.035) Urine Protein Trace (Negative) H Urine Ketones Negative (Negative) Urine Blood Trace /uL (Negative) H Urine Nitrite Negative (Negative) Urine Bilirubin Negative (Negative) Urine Urobilinogen Normal mg/dL (Negative) Urine Leukocyte Esterase Negative /uL (Negative) Urine RBC 8 /hpf (0 - 4) Urine Microscopic WBC 4 /HPF (0-5) Urine Squamous Epithelial Cells None seen /hpf (<5) Urine Uric Acid Crystals Mod /hpf (None Seen) Urine Bacteria None seen /hpf (None Seen) Urine Mucus Few (None Seen) Urine Glucose Normal mg/dL (Normal) Microbiology Microbiology Date/Time Source Procedure Growth Status 10/17/24 18:48 Sputum Endotracheal Wash Gram Stain - Final Complete 10/17/24 18:48 Sputum Endotracheal Wash Respiratory Culture - Final Complete 10/17/24 18:20 Nose MRSA Screen - Final Complete 10/17/24 01:25 Voided Urine Urine Culture - Final Complete 10/16/24 16:12 Blood Blood Culture - Final NO GROWTH AFTER 5 DAYS OF INCUBATION. 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 Is on high dose IV hydromorphone. Patient has high-risk of presenting opiate withdrawal syndrome Patient presented nausea and abdominal pain probably secondary to opiate adverse effect. 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 Planning on initiating clear liquid diet once cleared by surgery Genitourinary/Nephrology MORA hemodynamically mediated (VMN) Metabolic acidosis with increased AG (lactic acidosis) - Improved Required IV fluids, boluses and maintenance. Multiple transfusion of blood products Infectious Disease Septic shock secondary to toxic megacolon/colonic ischemia URI due to Influenza Awaiting results of culture Currently under empiric IV antibiotics (Meropenem, previously Vancomycin). No Oseltamivir, since it is PO Endocrine Ray's disease Hypertriglyceridemia Hypothyroidism Dyslipidemia Received Hydrocortisone 200 mg once and maintenance 50 mg q6hs. Now on Methylprednisolone 40 mg IV bid Avoid propofol due to hypertriglyceridemia TSH within normal limits, no Levothyroxine in Med reconcile. 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 Avoid opiate withdrawal Due to recent mechanical fall, obtain pelvic x-ray which ruled out acute fracture Continue with IV opioids. Patient does not tolerate gabapentin or pregabalin. May benefit from amitriptyline once patient can tolerate p.o. diet. Ordered physical therapy evaluation. Nutrition: NPO, on clinimix Prophylaxis: PUD (pantoprazole) and DVT (SCDs) Lines 10/17/2024 Avitia 10/17/2024 ET extubated 10/19/2024 10/17/2024 Right IJ CVC 10/17/2024 RUPERT drain Drips Clinimix 42 Plan discussed with: Patient Date of Service: October 22, 2024 Billing Provider: YOSSI SR MD Common Visit Codes: [id number] INP/OBS CARE(HIGH) YOSSI SR MD October 22, 2024 19:31
[2024-10-22] MEDS: METOCLOPRAMIDE HCL 5MG/ml INJ 2ml VIAL IV PRN (20:20)
[2024-10-23] VITALS (7 sets, daily range): BP systolic 94–96; BP diastolic 55–67; PULSE 122–133; RESP 14–19; TEMP 97.3–98.9; O2SAT 94–100
[2024-10-23 07:46] LABS: Alanine Aminotransferase 37 U/L (7-40); Anion Gap 10 (5-15); Aspartate Aminotransferase 19 U/L (13-40); BUN/Creatinine Ratio 41.9 (10.0-20.0); Bilirubin, Total 0.5 mg/dL (0.2-1.0); Blood Urea Nitrogen 13 mg/dL (9-23); Carbon Dioxide 23 mmol/L (20-31); Chloride 104 mmol/L (98-107); Magnesium 1.8 mg/dL (1.6-2.6); Phosphorus 2.8 mg/dL (2.4-5.1); Potassium 3.6 mmol/L (3.5-5.1); Sodium 137 mmol/L (136-145)
[2024-10-23 07:48] LABS: Albumin 2.9 g/dL (3.2-4.8); Alkaline Phosphatase 137 U/L (46-116); Calcium 8.3 mg/dL (8.7-10.4); Glucose 137 mg/dL (74-106); Total Protein 5.1 g/dL (5.7-8.2)
--- NOTE | 2024-10-23 08:18 | DVH ---
CHEST RADIOGRAPH Indication: Et intubation Technique: Single frontal view of the chest was obtained COMPARISON: XY CHEST XRAY 1 VIEW on DOS: 10/22/24, XY CHEST XRAY 1 VIEW on DOS: 10/21/24, XY CHEST XRAY 1 VIEW on DOS: 10/20/24, XY CHEST XRAY 1 VIEW on DOS: 10/19/24, XY CHEST XRAY 1 VIEW on DOS: 10/18/24 FINDINGS: Lines and Tubes: Right central venous catheter in satisfactory position Lungs: Mild congestion Pleura: No effusion. No pneumothorax. Cardiomediastinal contours: Unremarkable Bones: Unremarkable IMPRESSION: Right central venous catheter in satisfactory position. Mild congestion.
--- NOTE | 2024-10-23 10:07 | DVHPN2 ---
Progress Note - Dictate Date Seen: October 23, 2024 Medical Necessity Reason Pt with a Central, PICC or Fol: Yes The following are medically ne: Central Line, Avitia Catheter vital signs Vital Sign Date Time Temp Pulse Resp B/P (MAP) Pulse Ox O2 Delivery O2 Flow Rate FiO2 10/23/24 09:23 100/65 10/23/24 09:00 97.3 133 14 98 97.3 10/22/24 20:00 Room Air* 0 21 Total Intake and Output 10/22/24 10/22/24 10/23/24 15:00 23:00 07:00 Intake Total 185 ml 1167 ml Output Total 275 ml 2500 ml Balance -90 ml -1333 ml medications Current Medications Medications Dose Ordered Sig/Kelvin Route Start Time Stop Time Status Last Admin Dose Admin Vancomycin HCl 200 ml @ 200 mls/hr Q12HR IV 10/16/24 22:00 UNV Enoxaparin Sodium 40 mg DAILY SC 10/17/24 10:00 UNV Pantoprazole Sodium 40 mg DAILY IV 10/16/24 21:00 10/23/24 09:21 40 MG Thiamine HCl 100 mg DAILY IV 10/17/24 10:00 10/23/24 09:22 100 MG Folic Acid 1 mg/ Dextrose 50.2 ml @ 200.8 mls/ hr DAILY INJ 10/17/24 10:00 10/22/24 10:00 200.8 MLS/HR Meropenem 50 ml @ 17 mls/hr Q8HR IV 10/17/24 06:00 10/23/24 05:58 17 MLS/HR Methylprednisolone Sodium Succinate 40 mg BID IV 10/17/24 22:00 10/23/24 09:21 40 MG Amino Acids 0 ml @ 0 mls/hr PER PHARMACY IV 10/17/24 19:15 Diagnostic Test (Pha) 1 strip Q6HR 10/18/24 18:00 10/23/24 06:00 1 STRIP Insulin Human Regular FOLLOW SLIDING SCALE Q6HR SC 10/18/24 18:00 10/22/24 17:44 2 UNITS Dextrose 50 ml UD IV 10/18/24 18:00 Amino Acids/ Electrolytes/ Dextrose 1,000 ml @ 41 mls/hr DAILY@2200 IV 10/18/24 22:00 10/22/24 22:12 41 MLS/HR Furosemide 40 mg DAILY IV 10/19/24 10:00 10/23/24 09:23 40 MG Hydromorphone HCl 0.5 mg Q2HPRN PRN IV 10/20/24 11:30 10/23/24 06:09 0.5 MG Lorazepam 1 mg Q2HP PRN IV 10/21/24 11:00 10/23/24 09:23 1 MG Metoclopramide HCl 5 mg Q8HPRN PRN IV 10/21/24 11:00 10/22/24 20:20 5 MG Methylnaltrexone [place] 8 mg Q2D SC 10/21/24 17:00 laboratory and microbiology Laboratory Tests 10/23/24 05:41 10/22/24 11:30 Test 10/23/24 05:41 Range/Units Serum Glucose 137 H 74-106 mg/dL Assessment/Plan Impression Acute hypoxemic respiratory failure Metabolic encephalopathy Hx of Guillain-[place] NSTEMI MORA Patient seen and examined Events S/p extubation Low oxygen requirements On 3 liters nasal cannula No distress Labs and imaging reviewed Management Supplemental oxygen Titrate to maintain sats 90% or above Incentive spirometry Continue antibiotics F/u cultures Bronchodilators Monitor renal function Monitor electrolytes Supplement as needed Pain control Avoid oversedation F/u cardiology DVT prophylaxis Dietary Evaluation Review Comments: 1. Advance TPN to meet at least 75% of estimated needs 2. If GI route is accessible, TF Vital HP @ 70ml/hr x 24hr (goal). Start @ 20ml/hr, increase 10ml/hr Q$H until goal is reached. Water flush 50ml Q6H if allowed. 3. monitor electrolyte, triglycerides, PN tolerance, body weight change, skin integrity. Expected Outcomes/Goals: To meet at least 75% estimated needs within 7 days FU 2-3 days Plan discussed with: Patient MICHAEL BOLTON MD October 23, 2024 10:07
[2024-10-23 11:38] LABS: Basophils # (auto) 0.1 10 ^3/uL (0-0.2); Basophils % (auto) 0.2 % (0.0-2.0); Eosinophils # (auto) 0.2 10 ^3/uL (0-0.8); Eosinophils % (auto) 0.6 % (0.0-7.0); Hematocrit 28.2 % (36.0-46.0); Hemoglobin 8.7 g/dL (12.2-16.2); Lymphocytes # (auto) 2.4 10 ^3/uL (0.4-5.4); Lymphocytes % (auto) 9.7 % (10.0-50.0); Mean Corpuscular Hemoglobin 28.6 pg (28.0-32.0); Mean Corpuscular Hgb Conc. 30.9 g/dL (32.0-36.0); Mean Corpuscular Volume 92.7 fL (80.0-100.0); Monocytes # (auto) 2.2 10 ^3/uL (0-1.3); Monocytes % (auto) 8.9 % (0.0-12.0); Neutrophils # (auto) 19.7 10 ^3/uL (1.6-8.6); Neutrophils % (auto) 80.6 % (37.0-80.0); Nucleated Red Blood Cells % 0.3 %; Platelet Count (auto) 236 10^3/uL (140-450); Red Blood Cells 3.04 10^6/uL (4.0-5.20); Red Cell Distribution Width 21.5 % (11.8-14.3); White Blood Cell 24.5 10^3/uL (4.4-10.8)
[2024-10-23] MEDS: SODIUM CHLORIDE 0.9% 1,650 ML IV ONE (11:59)
--- NOTE | 2024-10-23 17:44 | DVHPN2 ---
Subjective in bed resting Changes from previous H/P or p: No Changes Objective Vitals Vital Signs Date Time Temp Pulse Resp B/P (MAP) Pulse Ox O2 Delivery O2 Flow Rate FiO2 10/23/24 17:00 98.2 122 16 94/62 (73) 100 98.2 10/23/24 08:00 Nasal Cannula* 2 28 Intake/Output Intake and Output 10/23/24 07:00 Intake Total 1352 ml Output Total 2775 ml Balance -1423 ml Intake Oral 860 ml IV Total 492 ml Output Urine Total 2500 ml Gastric Drainage Total 225 ml Drainage Total 50 ml General Appearance: Alert, Oriented X3 Cardiovascular: Regular rate, Normal S1, Normal S2 Abdomen: Normal bowel sounds Medications Current Medications Medications Dose Ordered Sig/Kelvin Route Start Time Stop Time Status Last Admin Dose Admin Vancomycin HCl 200 ml @ 200 mls/hr Q12HR IV 10/16/24 22:00 UNV Enoxaparin Sodium 40 mg DAILY SC 10/17/24 10:00 UNV Pantoprazole Sodium 40 mg DAILY IV 10/16/24 21:00 10/23/24 09:21 40 MG Thiamine HCl 100 mg DAILY IV 10/17/24 10:00 10/23/24 09:22 100 MG Folic Acid 1 mg/ Dextrose 50.2 ml @ 200.8 mls/ hr DAILY INJ 10/17/24 10:00 10/23/24 10:07 200.8 MLS/HR Meropenem 50 ml @ 17 mls/hr Q8HR IV 10/17/24 06:00 10/23/24 15:01 17 MLS/HR Methylprednisolone Sodium Succinate 40 mg BID IV 10/17/24 22:00 10/23/24 09:21 40 MG Amino Acids 0 ml @ 0 mls/hr PER PHARMACY IV 10/17/24 19:15 Diagnostic Test (Pha) 1 strip Q6HR 10/18/24 18:00 10/23/24 12:15 1 STRIP Insulin Human Regular FOLLOW SLIDING SCALE Q6HR SC 10/18/24 18:00 10/23/24 12:15 8 UNITS Dextrose 50 ml UD IV 10/18/24 18:00 Amino Acids/ Electrolytes/ Dextrose 1,000 ml @ 41 mls/hr DAILY@2200 IV 10/18/24 22:00 10/22/24 22:12 41 MLS/HR Furosemide 40 mg DAILY IV 10/19/24 10:00 10/23/24 09:23 40 MG Hydromorphone HCl 0.5 mg Q2HPRN PRN IV 10/20/24 11:30 10/23/24 14:21 0.5 MG Lorazepam 1 mg Q2HP PRN IV 10/21/24 11:00 10/23/24 15:34 1 MG Metoclopramide HCl 5 mg Q8HPRN PRN IV 10/21/24 11:00 10/23/24 12:05 5 MG Methylnaltrexone [place] 8 mg Q2D SC 10/21/24 17:00 Laboratory Results Laboratory Tests 10/23/24 05:41 Chemistry Test 10/23/24 05:41 Albumin 2.9 g/dL (3.2-4.8) L Calcium Level 8.3 mg/dL (8.7-10.4) L Magnesium Level 1.8 mg/dL (1.6-2.6) Phosphorus Level 2.8 mg/dL (2.4-5.1) Total Protein 5.1 g/dL (5.7-8.2) L LFT Test 10/23/24 05:41 Alanine Aminotransferase (ALT) 37 U/L (7-40) Alkaline Phosphatase 137 U/L (46-116) H Aspartate Amino Transferase (AST) 19 U/L (13-40) Total Bilirubin 0.5 mg/dL (0.2-1.0) Urinalysis Test 10/17/24 01:25 10/21/24 12:25 Urine Hyaline Casts Few /lpf (0 - 2) Urine Creatinine 87.60 mg/dL (30.0-125.0) Urine Sodium 35 mmol/L (40-220) L Urine Total Protein 114.1 mg/dL (1-14) H Urine Test Negative (Negative) Urine Color Light-yellow (Yellow) Urine Clarity Turbid (Clear) H Urine pH 5.5 (5.0-9.0) Urine Specific [place] 1.033 (1.001-1.035) Urine Protein Trace (Negative) H Urine Ketones Negative (Negative) Urine Blood Trace /uL (Negative) H Urine Nitrite Negative (Negative) Urine Bilirubin Negative (Negative) Urine Urobilinogen Normal mg/dL (Negative) Urine Leukocyte Esterase Negative /uL (Negative) Urine RBC 8 /hpf (0 - 4) Urine Microscopic WBC 4 /HPF (0-5) Urine Squamous Epithelial Cells None seen /hpf (<5) Urine Uric Acid Crystals Mod /hpf (None Seen) Urine Bacteria None seen /hpf (None Seen) Urine Mucus Few (None Seen) Urine Glucose Normal mg/dL (Normal) Microbiology Microbiology Date/Time Source Procedure Growth Status 10/17/24 18:48 Sputum Endotracheal Wash Gram Stain - Final Complete 10/17/24 18:48 Sputum Endotracheal Wash Respiratory Culture - Final Complete 10/17/24 18:20 Nose MRSA Screen - Final Complete 10/17/24 01:25 Voided Urine Urine Culture - Final Complete 10/16/24 16:12 Blood Blood Culture - Final NO GROWTH AFTER 5 DAYS OF INCUBATION. 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 Is on high dose IV hydromorphone. Patient has high-risk of presenting opiate withdrawal syndrome Patient presented nausea and abdominal pain probably secondary to opiate adverse effect. 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 Planning on initiating clear liquid diet once cleared by surgery Genitourinary/Nephrology MORA hemodynamically mediated (VMN) Metabolic acidosis with increased AG (lactic acidosis) - Improved Required IV fluids, boluses and maintenance. Multiple transfusion of blood products Infectious Disease Septic shock secondary to toxic megacolon/colonic ischemia URI due to Influenza Awaiting results of culture Currently under empiric IV antibiotics (Meropenem, previously Vancomycin). No Oseltamivir, since it is PO Endocrine Mccone's disease Hypertriglyceridemia Hypothyroidism Dyslipidemia Received Hydrocortisone 200 mg once and maintenance 50 mg q6hs. Now on Methylprednisolone 40 mg IV bid Avoid propofol due to hypertriglyceridemia TSH within normal limits, no Levothyroxine in Med reconcile. 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 Avoid opiate withdrawal Due to recent mechanical fall, obtain pelvic x-ray which ruled out acute fracture Continue with IV opioids. Patient does not tolerate gabapentin or pregabalin. May benefit from amitriptyline once patient can tolerate p.o. diet. Ordered physical therapy evaluation. Nutrition: NPO, on clinimix Prophylaxis: PUD (pantoprazole) and DVT (SCDs) Lines 10/17/2024 Avitia 10/17/2024 ET extubated 10/19/2024 10/17/2024 Right IJ CVC 10/17/2024 RUPERT drain Drips Clinimix 42 Plan discussed with: Patient Date of Service: October 23, 2024 Billing Provider: YOSSI SR MD Common Visit Codes: [id number] INP/OBS CARE(HIGH) YOSSI SR MD October 23, 2024 17:44
[2024-10-24] VITALS (11 sets, daily range): BP systolic 95–134; BP diastolic 57–80; PULSE 65–120; RESP 16–18; TEMP 98.2–99.1; O2SAT 97–100
[2024-10-24 06:16] LABS: Alanine Aminotransferase 25 U/L (7-40); Alkaline Phosphatase 113 U/L (46-116); Anion Gap 9 (5-15); BUN/Creatinine Ratio 36.6 (10.0-20.0); Blood Urea Nitrogen 15 mg/dL (9-23); Calcium 8.8 mg/dL (8.7-10.4); Carbon Dioxide 22 mmol/L (20-31); Chloride 102 mmol/L (98-107); Magnesium 1.7 mg/dL (1.6-2.6); Potassium 3.9 mmol/L (3.5-5.1)
[2024-10-24 06:17] LABS: Bilirubin, Total 0.5 mg/dL (0.2-1.0); Phosphorus 3.2 mg/dL (2.4-5.1)
[2024-10-24 06:19] LABS: Albumin 2.8 g/dL (3.2-4.8); Aspartate Aminotransferase 13 U/L (13-40); Glucose 248 mg/dL (74-106); Sodium 133 mmol/L (136-145); Total Protein 4.9 g/dL (5.7-8.2)
--- NOTE | 2024-10-24 08:28 | DVH ---
CHEST RADIOGRAPH Indication: Et intubation Technique: Single frontal view of the chest was obtained COMPARISON: XY CHEST XRAY 1 VIEW on DOS: 10/23/24, XY CHEST XRAY 1 VIEW on DOS: 10/22/24, XY CHEST XRAY 1 VIEW on DOS: 10/21/24, XY CHEST XRAY 1 VIEW on DOS: 10/20/24, XY CHEST XRAY 1 VIEW on DOS: 10/19/24 FINDINGS: Lines and Tubes: Right central venous catheter in satisfactory position. Lungs: Left basilar subsegmental atelectasis. Pleura: No effusion. No pneumothorax. Cardiomediastinal contours: Unremarkable Bones: Unremarkable IMPRESSION: No significant interval change.
[2024-10-24 09:58] LABS: Hematocrit 17.7 % (36.0-46.0)
[2024-10-24 09:59] LABS: Mean Corpuscular Hemoglobin 29.1 pg (28.0-32.0); Mean Corpuscular Hgb Conc. 30.1 g/dL (32.0-36.0); Mean Corpuscular Volume 96.6 fL (80.0-100.0); Platelet Count (auto) 281 10^3/uL (140-450); Red Blood Cells 1.83 10^6/uL (4.0-5.20)
[2024-10-24 10:17] LABS: Red Cell Distribution Width 24.5 % (11.8-14.3)
[2024-10-24 10:23] LABS: White Blood Cell 30.7 10^3/uL (4.4-10.8)
[2024-10-24 10:24] LABS: Basophils % (manual) 0 (0.0-2.0); Blast Cells 0; Eosinophils % (manual) 0 (0-7); Hemoglobin 5.3 g/dL (12.2-16.2); Metamyelocytes % 0; Myelocytes % 0; Promyelocytes % 0; Reactive Lymphocytes 0
[2024-10-24] MEDS ORDERED: VANCOMYCIN PER PHARMACY 0 MG IV SCH (10:30)
[2024-10-24 11:28] LABS: Anisocytosis Moderate; Band Neutrophils % (manual) 4; Lymphocytes % (manual) 11 (10.0-50.0); Monocytes % (manual) 3 (0-12); Platelet Estimate Adequate
[2024-10-24] MEDS: AMITRIPTYLINE HCL 10 MG TAB PO ONE (11:47)
[2024-10-24 11:54] LABS: INR 1.19 (0.9-1.15); Prothrombin Time 12.4 sec (9.3-11.8)
[2024-10-24] MEDS: VANCOMYCIN 1.25GM/250ML 250 ML IV ONE (13:36)
[2024-10-24] MEDS: LIDOCAINE 1% (LOCAL ANESTH.) PF 5ml SDV ID ONE (14:04)
[2024-10-24] MEDS ORDERED: TPN PER PHARMACY 0 ML IV SCH (14:15)
[2024-10-24] MEDS: OMNIPAQUE 12mg/ml 500ml ORAL SOLUTION PO ONE (14:15)
--- NOTE | 2024-10-24 15:11 | DVH ---
INDICATION: PICC tip verification TECHNIQUE: Frontal view of the chest. COMPARISON: XY CHEST XRAY 1 VIEW on DOS: 10/24/24, XY CHEST XRAY 1 VIEW on DOS: 10/23/24, XY CHEST XRAY 1 VIEW on DOS: 10/22/24, XY CHEST XRAY 1 VIEW on DOS: 10/21/24, XY CHEST XRAY 1 VIEW on DOS: 10/20/24 FINDINGS: Findings. The heart and mediastinal contours are grossly unremarkable. There is no evidence of pleur al disease. The lungs are clear. The bony structures of the chest are intact without fracture. There is a right-sided PICC catheter with tip in superior vena cava. IMPRESSION: 1. No evidence of acute disease.
[2024-10-24] MEDS: SODIUM PHOSPHATES 20 MEQ in SODIUM CHL 0.9% 100 ML IV ONE (15:45)
--- NOTE | 2024-10-24 17:12 | DVH ---
Exam: CT CT AB PEL WITH ORAL CON ONLY History: gi BLEED Comparison Study: CT CT AB PEL WO CON-NO ORAL OR IV on DOS: 10/16/24 Technique: Multidetector CT of the abdomen and pelvis with oral contrast. Axial, coronal and sagittal multiplanar reformats were performed by the technologist on a separate workstation. Radiation Dose Information: CT Dose: CTDI volume is 6.55 mGy. Dose-length product is 379.39 mGy*cm Findings: Small to moderate left with small right-sided pleural effusions and associated atelectasis. Mild card iomegaly with trace pericardial effusion. Mild hepatomegaly. Otherwise, liver, spleen, and adrenal glands unremarkable. Gallbladder is decompr essed limiting evaluation. Significant peripancreatic tail stranding/edema with limited evaluation gi ilia noncontrast imaging. Small amount of free fluid of the left upper abdominal quadrant which is mos t likely associated with the peripancreatic inflammatory process. Kidneys and ureters are unremarkable. Urinary bladder is decompressed with Avitia catheter in place. Focus of air within the Urinary bladder which is most likely iatrogenic. Essure device is noted. Othe rwise, uterus and adnexa are unremarkable. Postsurgical changes of the stomach. Small hiatal hernia. Mild wall thickening of the distal esophag us. The small bowel loops unremarkable. Contrast is noted within the stomach and small bowel loops. M ild wall thickening of the decompressed descending colon and sigmoid. Postsurgical changes of right h emicolectomy with suture material of the distal transverse colon. Right lower abdominal quadrant osto my with tortuosity of the bowel within the anterior abdominal subcutaneous fat. Moderate amount of fe gracie material within the rectum. No evidence of aortic aneurysm. No significant lymphadenopathy. No significant intraperitoneal free air. Fat stranding of the anterior abdominal mesentery which may be associated with the postsurgical changes. There is mild midline subcutaneous fat stranding with ov erlying skin ondina consistent with recent surgery. Minimal body wall edema. Anterior spinal fusion of L5 on S1. No destructive osseous lesions are noted . Partially visualized central venous catheter extending through the SVC into the IVC. Left lower abdominal approach drainage catheter terminating within the right hemipelvis. IMPRESSION: There is recent midline abdominal postsurgical changes with right lower abdominal quadrant ostomy and partial colectomy. Minimal wall thickening of the decompressed descending colon and sigmoid. Correlate for mild colitis . Significant fat stranding adjacent to the pancreatic tail with associated edema and left upper abdomi nal quadrant free fluid. Correlate for possible pancreatitis. Significant Interval improvement in th e fat stranding adjacent to the pancreatic head and body. Interval resolution of the previously noted portal venous gas. Small to moderate left and small right-sided pleural effusions and associated atelectasis. Left basi lar pneumonia can not be excluded. Additional findings as above.
--- NOTE | 2024-10-24 18:28 | DVHPN2 ---
Progress Note - Dictate Date Seen: October 24, 2024 Medical Necessity Reason Pt with a Central, PICC or Fol: Yes The following are medically ne: Central Line, Avitia Catheter vital signs Vital Sign Date Time Temp Pulse Resp B/P (MAP) Pulse Ox O2 Delivery O2 Flow Rate FiO2 10/24/24 17:40 98.4 95 18 134/61 98.4 10/24/24 17:24 100 10/24/24 08:00 Nasal Cannula* 2 28 Total Intake and Output 10/23/24 10/23/24 10/24/24 15:00 23:00 07:00 Intake Total 170 ml 590 ml 492 ml Output Total 100 ml 1050 ml 410 ml Balance 70 ml -460 ml 82 ml medications Current Medications Medications Dose Ordered Sig/Kelvin Route Start Time Stop Time Status Last Admin Dose Admin Vancomycin HCl 200 ml @ 200 mls/hr Q12HR IV 10/16/24 22:00 UNV Enoxaparin Sodium 40 mg DAILY SC 10/17/24 10:00 UNV Thiamine HCl 100 mg DAILY IV 10/17/24 10:00 10/24/24 11:06 100 MG Folic Acid 1 mg/ Dextrose 50.2 ml @ 200.8 mls/ hr DAILY INJ 10/17/24 10:00 10/24/24 12:31 200.8 MLS/HR Meropenem 50 ml @ 17 mls/hr Q8HR IV 10/17/24 06:00 10/24/24 16:12 17 MLS/HR Methylprednisolone Sodium Succinate 40 mg BID IV 10/17/24 22:00 10/24/24 11:06 40 MG Diagnostic Test (Pha) 1 strip Q6HR 10/18/24 18:00 10/24/24 12:32 1 STRIP Insulin Human Regular FOLLOW SLIDING SCALE Q6HR SC 10/18/24 18:00 10/24/24 12:33 2 UNITS Dextrose 50 ml UD IV 10/18/24 18:00 Amino Acids/ Electrolytes/ Dextrose 1,000 ml @ 41 mls/hr DAILY@2200 IV 10/18/24 22:00 10/25/24 21:59 10/23/24 21:06 41 MLS/HR Hydromorphone HCl 0.5 mg Q2HPRN PRN IV 10/20/24 11:30 10/24/24 14:39 0.5 MG Lorazepam 1 mg Q2HP PRN IV 10/21/24 11:00 10/24/24 14:43 1 MG Metoclopramide HCl 5 mg Q8HPRN PRN IV 10/21/24 11:00 10/23/24 21:07 5 MG Methylnaltrexone Sigourney 8 mg Q2D SC 10/21/24 17:00 10/23/24 17:25 8 MG Amitriptyline HCl 10 mg HS PO 10/25/24 22:00 Vancomycin HCl 0 ml @ 0 mls/hr UD IV 10/24/24 10:30 Pantoprazole Sodium 50 ml @ 10 mls/hr Q5H IV 10/24/24 14:15 Amino Acids 0 ml @ 0 mls/hr PER PHARMACY IV 10/24/24 14:15 Sodium Chloride 10 ml QSHIFT@10,22 IV 10/24/24 22:00 Vancomycin HCl 250 ml @ 200 mls/hr Q12H IV 10/24/24 22:00 laboratory and microbiology Laboratory Tests 10/24/24 05:26 Test 10/24/24 05:26 Range/Units Serum Glucose 248 H 74-106 mg/dL Assessment/Plan Impression Acute hypoxemic respiratory failure Metabolic encephalopathy 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 Advance TPN to meet at least 75% of estimated needs 2. If GI route is accessible, TF Vital HP @ 70ml/hr x 24hr (goal). Start @ 20ml/hr, increase 10ml/hr Q$H until goal is reached. Water flush 50ml Q6H if allowed. 3. monitor electrolyte, triglycerides, PN tolerance, body weight change, skin integrity. Expected Outcomes/Goals: To meet at least 75% estimated needs within 7 days FU 2-3 days Plan discussed with: Patient MICHAEL BOLTON MD October 24, 2024 18:28
[2024-10-24] MEDS: PANTOPRAZOLE 40mg/50ML NS AE 50 ML IV SCH (18:45)
--- NOTE | 2024-10-24 20:43 | DVHPNRES ---
Progress Note Date Seen: October 24, 2024 Resident Creating Document: ENOC MATHIAS RESIDENT Medical Necessity Reason Pt with a Central, PICC or Fol: Yes The following are medically ne: PICC Line, Avitia Catheter Subjective Review of Systems Juni Isidro is a 38-year-old female patient who presents to the ED with complaint of 4-day history of constipation and abdominal pain, followed by diarrhea after taking laxatives, associated with progressive dyspnea in functional class IV. Patient was diagnosed with toxic megacolon requiring urgent surgery (hemicolectomy with ileostomy), admitted to ICU. Patient currently ventilated, obtained review of systems and history from EMR and who is at bedside. 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 Surgical History: Hiatal hernia repair, Laparoscopic gastric sleeve, Multiple spine surgeries, Arthroscopic knee surgery Family history: Diabetes Social History: Lives in [place] with family. Former heavy ethanol use, currently ~2 drinks/day. Denies current tobacco and other drug abuse Allergies: Doxycycline Home medication: Olanzapine 5 mg PO daily, Morphine, [place] 10 mg q4hs PRN, Losartan 100 mg PO daily, Meloxicam, Hydrocortisone 5 mg PO daily, Medroxyprogesterone 2.5 mg PO daily, Pregabalin 200 mg PO daily, Vitamin D 30896 PO weekly, Tizanidine 4 mg PO daily, Methocarbamol, Duloxetine 60 mg PO daily Patient seen and examined at bedside. Currently downgraded to Telemtry status, s/p hemicolectomy and ileostomy, extubated for approximately 24 hours. Optimize pain medication to avoid opiate withdrawal syndrome, patient's pain is more neuropathic due to Guillain-Elon syndrome. Patient would benefit from gabapentin or pregabalin but patient does not tolerate medication due to confusion. A good option may be amitriptyline, but patient is currently NPO. Advanced to clear liquid diet on 10/22/2024, but started NPO due to GI bleed with severe anemia, ordered 2 PRBCs and Abdomen and pelvis CT which ruled out perforation (persists with pancreatitis, but is improving). Discontinued NSAIDs. Discontinued central line due to leukocytosis, placed PICC line for IV nutrition with TPN. Indicated methyl naltrexone to manage opiate induced constipation. Objective vital signs Vital Sign Date Time Temp Pulse Resp B/P (MAP) Pulse Ox O2 Delivery O2 Flow Rate FiO2 10/24/24 20:18 102 17 124/86 10/24/24 17:40 98.4 98.4 10/24/24 17:24 100 10/24/24 08:00 Nasal Cannula* 2 28 Total Intake and Output 10/23/24 10/23/24 10/24/24 15:00 23:00 07:00 Intake Total 170 ml 590 ml 492 ml Output Total 100 ml 1050 ml 410 ml Balance 70 ml -460 ml 82 ml medications Current Medications Medications Dose Ordered Sig/Kelvin Route Start Time Stop Time Status Last Admin Dose Admin Vancomycin HCl 200 ml @ 200 mls/hr Q12HR IV 10/16/24 22:00 UNV Enoxaparin Sodium 40 mg DAILY SC 10/17/24 10:00 UNV Thiamine HCl 100 mg DAILY IV 10/17/24 10:00 10/24/24 11:06 100 MG Folic Acid 1 mg/ Dextrose 50.2 ml @ 200.8 mls/ hr DAILY INJ 10/17/24 10:00 10/24/24 12:31 200.8 MLS/HR Meropenem 50 ml @ 17 mls/hr Q8HR IV 10/17/24 06:00 10/24/24 16:12 17 MLS/HR Methylprednisolone Sodium Succinate 40 mg BID IV 10/17/24 22:00 10/24/24 11:06 40 MG Diagnostic Test (Pha) 1 strip Q6HR 10/18/24 18:00 10/24/24 18:47 1 STRIP Insulin Human Regular FOLLOW SLIDING SCALE Q6HR SC 10/18/24 18:00 10/24/24 18:49 4 UNITS Dextrose 50 ml UD IV 10/18/24 18:00 Amino Acids/ Electrolytes/ Dextrose 1,000 ml @ 41 mls/hr DAILY@2200 IV 10/18/24 22:00 10/25/24 21:59 10/23/24 21:06 41 MLS/HR Hydromorphone HCl 0.5 mg Q2HPRN PRN IV 10/20/24 11:30 10/24/24 20:18 0.5 MG Lorazepam 1 mg Q2HP PRN IV 10/21/24 11:00 10/24/24 20:19 1 MG Metoclopramide HCl 5 mg Q8HPRN PRN IV 10/21/24 11:00 10/23/24 21:07 5 MG Methylnaltrexone Diana 8 mg Q2D SC 10/21/24 17:00 10/23/24 17:25 8 MG Amitriptyline HCl 10 mg HS PO 10/25/24 22:00 Vancomycin HCl 0 ml @ 0 mls/hr UD IV 10/24/24 10:30 Pantoprazole Sodium 50 ml @ 10 mls/hr Q5H IV 10/24/24 14:15 10/24/24 18:45 10 MLS/HR Amino Acids 0 ml @ 0 mls/hr PER PHARMACY IV 10/24/24 14:15 Sodium Chloride 10 ml QSHIFT@10,22 IV 10/24/24 22:00 Vancomycin HCl 250 ml @ 200 mls/hr Q12H IV 10/24/24 22:00 Examination Patient lying in bed, in no acute distress General: Lucid, afebrile, mucosae are moist, pale conjunctivae Cardiovascular: Normal S1 and S2. No murmurs, gallops or rubs Respiratory: Normal ventilation mechanics. Clear lung sounds on auscultation Abdomen: Mildly distended, Laparotomy surgical wound with no significant secretions, RUPERT drain with serosanguinous debit, stoma of Ileostomy seems viable with melena and blood clots, no organomegaly, reduced bowel sounds MSK/skin: Mobilizes 4 limbs. Skin is dry and warm Neurological: Oriented in 3 spheres. No motor no sensitive deficits. Pupils are isocoric and reactive laboratory and microbiology Laboratory Tests 10/24/24 05:26 Test 10/24/24 05:26 Range/Units Serum Glucose 248 H 74-106 mg/dL Microbiology Date/Time Source Procedure Growth Status 10/17/24 18:48 Sputum Endotracheal Wash Gram Stain - Final Complete 10/17/24 18:48 Sputum Endotracheal Wash Respiratory Culture - Final Complete 10/17/24 18:20 Nose MRSA Screen - Final Complete 10/17/24 01:25 Voided Urine Urine Culture - Final Complete 10/16/24 16:12 Blood Blood Culture - Final NO GROWTH AFTER 5 DAYS OF INCUBATION. 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 Is on high dose IV hydromorphone. Patient has high-risk of presenting opiate withdrawal syndrome Patient presented nausea and abdominal pain probably secondary to opiate adverse effect. Indicated methylnaltrexone Cardiovascular NSTEMI probable type II Acute on diastolic congestive heart failure Completed echocardiogram: LVEF 70%, hyperdynamic LV, normal RV function but could not rule out enlargement Required IV furosemide Respiratory Acute respiratory failure - extubated URI due to Influenza [id number] left pleural effusion Currently extubated on 10/19/2024, on oxygen therapy with nasal canula at 3 L/min Pleural effusion seen in abdomen and pelvis CT Gastrointestinal Toxic megacolon - S/p hemicolectomy and ileostomy Stercoral colitis Pancreatitis GI bleed Pneumobilia - Resolved Acute hepatitis History of ethanol abuse History of gastric sleeve surgery History of esophagitis Completed abdomen and pelvis CT: Pneumobilia, pneumatosis coli in the right colon, gaseous and stool distention throughout colon, Small ascites, peripancreatic inflammation Currently under empiric IV antibiotics (Meropenem, previously Vancomycin) 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 Planning on initiating clear liquid diet once cleared by surgery Completed abdomen and pelvis CT with p.o. contrast which ruled out perforation, continues with pancreatitis which has improved from previous imaging. Does present colitis which has not been resulted. [id number] left pleural effusion Probable cause of GI bleed could be esophagitis. Patient was on NSAIDs. Have discontinued NSAIDs at this point. On pantoprazole 40 mg IV b.i.d.. Consulted GI for GI bleed Genitourinary/Nephrology MORA hemodynamically mediated (VMN) Metabolic acidosis with increased AG (lactic acidosis) - Improved Required IV fluids, boluses and maintenance. Multiple transfusion of blood products Infectious Disease Septic shock secondary to toxic megacolon/colonic ischemia URI due to Influenza Awaiting results of culture Currently under empiric IV antibiotics (Meropenem and Vancomycin). Restarted vancomycin due to increased leukocytosis to cover Gram-positive cocci. No Oseltamivir, since it is PO Endocrine Ray's disease Hypertriglyceridemia Hypothyroidism Dyslipidemia Received Hydrocortisone 200 mg once and maintenance 50 mg q6hs. Now on Methylprednisolone 40 mg IV bid Avoid propofol due to hypertriglyceridemia TSH within normal limits, no Levothyroxine in Med reconcile. Will hold on T4 treatment Hematology Severe normocytic Anemia with iron deficiency Acute blood loss Thrombocytopenia (questionable HIT I) Patient require multiple blood product transfusion. Presented new episode of GI bleed (4 PRBCs, one fresh frozen plasma, cryoprecipitate and platelets) Musculoskeletal Chronic back pain Neuropathic pain post Guillain-Elon syndrome Ruled out pelvic fracture Currently on fentanyl drip. Avoid opiate withdrawal Due to recent mechanical fall, obtain pelvic x-ray which ruled out acute fracture Continue with IV opioids. Patient does not tolerate gabapentin or pregabalin. May benefit from amitriptyline once patient can tolerate p.o. diet. Ordered physical therapy evaluation. Nutrition: NPO, on TPN Prophylaxis: PUD (pantoprazole) and DVT (SCDs) Lines 10/17/2024 Avitia 10/17/2024 ET extubated 10/19/2024 10/17/2024 Right IJ CVC removed 10/24/2024 10/24/2024 PICC line 10/17/2024 RUPERT drain Drips Clinimix 42 Goals of care discussed with (Derrell) for over 18 minutes: Full code status Discussed plan with Dr. Wolff, patient and nurses: Patient is currently Telemetry status, s/p hemicolectomy and ileostomy, extubated, empiric IV antibiotic, requiring multiple blood product transfusions, IV iron, NPO, on Clinimix. Pending culture results. Presented fluid overload, discontinued IV fluids and indicated IV diuretics. Patient is on IV opiates, she will benefit from p.o. medication like amitriptyline (does not tolerate gabapentin nor pregabalin), she describes pain as neuropathic. We will advance diet once surgeon agrees, planning on advancing to clear liquid diet once patient is not nauseas, once patient tolerates oral intake we will discontinue central line, we will continue right now due to requirement of Clinimix. DC Vancomycin on 10/21/2024. Patient's nausea and vomiting may be secondary to IV opioids, indicated methylnaltrexone to avoid opiate induced constipation. Plan discussed with: Patient, Spouse, Other (Nurses) My Orders My Orders Orders - ENOC MATHIAS RESIDENT Procedure Category Date Status Time D/C Tlc [facility] 10/24/24 In Process 09:54 Amitriptyline Hcl [facility] 10/25/24 In Process Tablet (Elavil Tablet) 22:00 Blood Culture [facility] 10/24/24 In Process 10:27 Vancomycin Per [facility] 10/24/24 In Process Pharmacy 10:30 Type And Screen BBK 10/24/24 In Process 10:27 Npo (Nothing By DIET 10/24/24 Transmitted Mouth) Diet Lunch PICC BD 10/24/24 Transmitted 10:32 Ct Ab Pel With Oral CT 10/24/24 Resulted Con Only 14:04 Pantoprazole [facility] 10/24/24 In Process 40mg/50ml Ns Ae 14:15 Tpn Per Pharmacy [facility] 10/24/24 In Process 14:15 Change Dressing Prn [facility] 10/24/24 In Process 14:41 Sodium Chloride Lock [facility] 10/24/24 In Process (Saline Lock Ns) 22:00 Do Not Use Picc For [facility] 10/24/24 In Process Blood Cult 14:41 May Draw Blood From [facility] 10/24/24 In Process Picc 14:41 Chest Portable XY 10/24/24 Resulted 14:41 Ok To Use Picc [facility] 10/24/24 In Process 14:[address] [facility] 10/24/24 In Process Q7 Days 14:41 Comprehensive LAB 10/25/24 Verified Metabolic Panel 04:00 Magnesium LAB 10/25/24 Verified 04:00 Phosphorus LAB 10/25/24 Verified 04:00 Tpn Per Pharmacy [facility] 10/24/24 In Process 22:00 Vancomycin PHA 10/24/24 In Process 1.25gm/250ml 22:00 Vancomycin,Trough LAB 10/25/24 Verified 13:[address] [facility] 10/25/24 In Process Pharmacy Protoc 14:00 Complete Blood Count LAB 10/24/24 Logged 20:19 Complete Blood Count LAB 10/25/24 Verified 04:00 PTPTT LAB 10/25/24 Verified 04:00 PTPTT LAB 10/24/24 Logged 20:20 Dietary Evaluation Review Comments: 1. Advance TPN to meet at least 75% of estimated needs 2. If GI route is accessible, TF Vital HP @ 70ml/hr x 24hr (goal). Start @ 20ml/hr, increase 10ml/hr Q$H until goal is reached. Water flush 50ml Q6H if allowed. 3. monitor electrolyte, triglycerides, PN tolerance, body weight change, skin integrity. Expected Outcomes/Goals: To meet at least 75% estimated needs within 7 days FU 2-3 days ENOC MATHIAS RESIDENT October 24, 2024 20:42
[2024-10-24 21:19] LABS: Hematocrit 19.9 % (36.0-46.0); Mean Corpuscular Hemoglobin 28.8 pg (28.0-32.0); Mean Corpuscular Hgb Conc. 32.7 g/dL (32.0-36.0); Platelet Count (auto) 273 10^3/uL (140-450); Red Blood Cells 2.27 10^6/uL (4.0-5.20); Red Cell Distribution Width 20.8 % (11.8-14.3); White Blood Cell 26.6 10^3/uL (4.4-10.8)
[2024-10-24 21:27] LABS: Hemoglobin 6.5 g/dL (12.2-16.2)
[2024-10-24 21:28] LABS: Basophils % (manual) 0 (0.0-2.0); Blast Cells 0; Eosinophils % (manual) 0 (0-7); Metamyelocytes % 0; Myelocytes % 0; Promyelocytes % 0; Reactive Lymphocytes 0
[2024-10-24 21:35] LABS: INR 1.14 (0.9-1.15); Partial Thromboplastin Time 26.2 SEC (24.5-34.5); Prothrombin Time 11.9 sec (9.3-11.8)
[2024-10-24] MEDS: SODIUM CHLOR 0.9% PF (SALINE LOCK) 10ML VIAL/SYR IV SCH (22:00)
[2024-10-24 22:31] LABS: Anisocytosis Slight; Band Neutrophils % (manual) 3; Lymphocytes % (manual) 11 (10.0-50.0); Monocytes % (manual) 3 (0-12); Platelet Estimate Adequate
[2024-10-25] VITALS (9 sets, daily range): BP systolic 103–136; BP diastolic 62–77; PULSE 17–96; RESP 16–18; TEMP 97.7–98.3; O2SAT 92–97
[2024-10-25] MEDS: VANCOMYCIN 1.25GM/250ML 250 ML IV SCH (00:56)
[2024-10-25 06:26] LABS: Hematocrit 24.5 % (36.0-46.0)
[2024-10-25 06:32] LABS: Hemoglobin 8.1 g/dL (12.2-16.2); Mean Corpuscular Hemoglobin 29.6 pg (28.0-32.0); Mean Corpuscular Hgb Conc. 33.2 g/dL (32.0-36.0); Mean Corpuscular Volume 89.3 fL (80.0-100.0); Platelet Count (auto) 227 10^3/uL (140-450); Red Blood Cells 2.74 10^6/uL (4.0-5.20); Red Cell Distribution Width 17.7 % (11.8-14.3); White Blood Cell 22.9 10^3/uL (4.4-10.8)
[2024-10-25 06:34] LABS: Alanine Aminotransferase 18 U/L (7-40); Alkaline Phosphatase 90 U/L (46-116); Anion Gap 8 (5-15); Aspartate Aminotransferase 18 U/L (13-40); Carbon Dioxide 23 mmol/L (20-31); Chloride 107 mmol/L (98-107); Magnesium 1.8 mg/dL (1.6-2.6); Sodium 138 mmol/L (136-145)
[2024-10-25 06:35] LABS: Albumin 2.7 g/dL (3.2-4.8); Bilirubin, Total 0.4 mg/dL (0.2-1.0); Blood Urea Nitrogen 9 mg/dL (9-23); Calcium 8.1 mg/dL (8.7-10.4); Glucose 141 mg/dL (74-106); INR 1.08 (0.9-1.15); Partial Thromboplastin Time 25.6 SEC (24.5-34.5); Phosphorus 2.7 mg/dL (2.4-5.1); Potassium 3.1 mmol/L (3.5-5.1); Prothrombin Time 11.4 sec (9.3-11.8); Total Protein 4.6 g/dL (5.7-8.2)
[2024-10-25 06:39] LABS: Basophils % (manual) 0 (0.0-2.0); Blast Cells 0; Metamyelocytes % 0; Myelocytes % 0; Promyelocytes % 0; Reactive Lymphocytes 0
--- NOTE | 2024-10-25 07:17 | DVH ---
EXAM: XR Chest, 1 View CLINICAL INDICATION: Et intubation TECHNIQUE: Frontal view of the chest. COMPARISON: XY CHEST PORTABLE on DOS: 10/24/24, XY CHEST XRAY 1 VIEW on DOS: 10/24/24, XY CHEST XRAY 1 VIEW on DOS: 10/23/24, XY CHEST XRAY 1 VIEW on DOS: 10/22/24, XY CHEST XRAY 1 VIEW on DOS: 10/21/24 FINDINGS: LUNGS AND PLEURAL SPACES: Unremarkable. No consolidation. No pneumothorax. HEART: Unremarkable. No cardiomegaly. MEDIASTINUM: Unremarkable. Normal mediastinal contour. BONES/JOINTS: Unremarkable. No acute fracture. TUBES, LINES AND DEVICES: Right peripherally inserted central catheter (PICC) tip in the superior v odell cava. ETT not visualized. Clinical correlation is recommended. Removal of right IJ venous cath eter. OTHER FINDINGS: . IMPRESSION: No acute cardiopulmonary process.
[2024-10-25 08:45] LABS: Band Neutrophils % (manual) 6; Eosinophils % (manual) 1 (0-7); Lymphocytes % (manual) 7 (10.0-50.0); Monocytes % (manual) 7 (0-12); Platelet Estimate Adequate
--- NOTE | 2024-10-25 10:39 | DVH ---
Date: 10/25/2024 09:28 AM Examination: XY KUB ABDOMEN SINGLE VIEW History: Evaluate PO contrast, r/o perforation Comparison: 10/25/2023 TECHNIQUE: Frontal views of the abdomen was obtained. FINDINGS: Paucity of bowel gas limits evaluation. No radiopaque contrast is visualized. Lung bases are collima agnes from field of view. Possible surgical Catheter is visualized with tip in the right lower quadrant . Multiple skin ondina are visualized No acute osseous abnormality identified. IMPRESSION: Paucity of bowel gas limits evaluation. No radiopaque contrast is visualized. Lung bases are collima agnes from field of view.
--- NOTE | 2024-10-25 13:59 | DVHINCON2 ---
GI Consult Consult Note GI consult note Date of Consultation: 10/25/2024 Chief Complaint: GI bleed status post hemicolectomy Referring Physician: H&P: 38-year-old female presents to emergency room with history of constipation abdominal pain, followed by diarrhea after taking laxatives, diagnosed with toxic megacolon requiring urgent surgery hemicolectomy and ileostomy Patient complaining of tiredness and soreness Patient has nausea, denies vomiting no hematemesis Patient has noticed red blood in her ileostomy bag Patient has history of anemia, secondary to heavy menstrual cycle, treated with iron supplements in past. 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 Past Surgical History: Hiatal hernia repair, Laparoscopic gastric sleeve, Multiple spine surgeries, Arthroscopic knee surgery Social History: Lives in [place] with family. Former heavy ethanol use, currently ~2 drinks/day. Denies current tobacco and other drug abuse Family History: Diabetes Review of Systems: Constitutional: no fever, chill, weight loss HEENT: no eye pain, no hearing loss, no oral lesion, no scleral icterus Heart: no chest pain, no chest pressure Lung: no cough, no dyspnea with exertion Abdomen: see HPI Physical exam: General: NAD, AAOX3 Chest: lung hickman clear to auscultation Heart: RRR, no murmur Abdomen: Mild-distended, soft, decreased BS Labs: Test 10/24/24 05:26 Range/Units Serum Glucose 248 H 74-106 mg/dL Microbiology Date/Time Source Procedure Growth Status 10/17/24 18:48 Sputum Endotracheal Wash Gram Stain - Final Complete 10/17/24 18:48 Sputum Endotracheal Wash Respiratory Culture - Final Complete 10/17/24 18:20 Nose MRSA Screen - Final Complete 10/17/24 01:25 Voided Urine Urine Culture - Final Complete 10/16/24 16:12 Blood Blood Culture - Final NO GROWTH AFTER 5 DAYS OF INCUBATION. Complete Imaging: CT abdomen pelvis 10/16/2024 IMPRESSION: 1. Questionable peripancreatic inflammatory changes correlate with pancreatic labs for pancreatitis. 2. Small amount of ascites scattered throughout the abdomen and pelvis. 3. Air within the ductal system of the left lobe of the liver may represent pneumobilia from recent biliary procedure or or possible portal venous air. 4. Questionable pneumocystis coli in the right colon. 5. Stool and gaseous distention of the colon is noted from the cecum to the rectum. A focus of abnormal narrowing or obstruction is not apparent at this time. Consider barium enema or colonoscopy for further evaluation. 6. Also correlate for possible history of constipation. No findings to suggest small bowel obstruction. CT abdomen pelvis 10/24/2024 IMPRESSION: There is recent midline abdominal postsurgical changes with right lower abdominal quadrant ostomy and partial colectomy. Minimal wall thickening of the decompressed descending colon and sigmoid. Correlate for mild colitis. Significant fat stranding adjacent to the pancreatic tail with associated edema and left upper abdominal quadrant free fluid. Correlate for possible pancreatitis. Significant Interval improvement in the fat stranding adjacent to the pancreatic head and body. Interval resolution of the previously noted portal venous gas. Small to moderate left and small right-sided pleural effusions and associated atelectasis. Left basilar pneumonia can not be excluded. Additional findings as above. 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 Frias Protonix Continue antibiotic Stool for occult blood Monitor labs transfuse if hemoglobin less than seven Recommend surgical follow-up Possible GI procedures to be considered when patient is stable We will continue to monitor the patient Thank you for this consult Date of Service: October 25, 2024 Billing Provider: OLGA BAINS Common Visit Codes: CONSULT ONLY Consultation Codes: [id number] CONSULT <60MIN OLGA BAINS October 25, 2024 13:59
--- NOTE | 2024-10-25 14:27 | DVHPN2 ---
Subjective Date Seen: October 25, 2024 Post op day Post op day: 8 General: Normal HNT: Normal Cardiovascular: Normal Respiratory: Normal Gastrointestinal: Nausea Genitourinary: Normal Musculoskeletal: Normal Neurological: Normal Objective Vitals Vital Sign Date Time Temp Pulse Resp B/P (MAP) Pulse Ox O2 Delivery O2 Flow Rate FiO2 10/25/24 12:42 98.1 89 16 119/65 (83) 95 98.1 10/25/24 08:00 Nasal Cannula* 2 28 Total Intake and Output 10/24/24 10/24/24 10/25/24 15:00 23:00 07:00 Intake Total 300 ml 330 ml Output Total 1600 ml Balance 300 ml -1270 ml Medications Current Medications Medications Dose Ordered Sig/Kelvin Route Start Time Stop Time Status Last Admin Dose Admin Vancomycin HCl 200 ml @ 200 mls/hr Q12HR IV 10/16/24 22:00 UNV Enoxaparin Sodium 40 mg DAILY SC 10/17/24 10:00 UNV Thiamine HCl 100 mg DAILY IV 10/17/24 10:00 10/25/24 10:12 100 MG Folic Acid 1 mg/ Dextrose 50.2 ml @ 200.8 mls/ hr DAILY INJ 10/17/24 10:00 10/25/24 10:10 200.8 MLS/HR Meropenem 50 ml @ 17 mls/hr Q8HR IV 10/17/24 06:00 10/24/24 23:17 17 MLS/HR Methylprednisolone Sodium Succinate 40 mg BID IV 10/17/24 22:00 10/25/24 10:12 40 MG Diagnostic Test (Pha) 1 strip Q6HR 10/18/24 18:00 10/25/24 12:12 1 STRIP Insulin Human Regular FOLLOW SLIDING SCALE Q6HR SC 10/18/24 18:00 10/25/24 12:13 2 UNITS Dextrose 50 ml UD IV 10/18/24 18:00 Amino Acids/ Electrolytes/ Dextrose 1,000 ml @ 41 mls/hr DAILY@2200 IV 10/18/24 22:00 10/25/24 21:59 10/24/24 22:00 41 MLS/HR Hydromorphone HCl 0.5 mg Q2HPRN PRN IV 10/20/24 11:30 10/25/24 10:12 0.5 MG Lorazepam 1 mg Q2HP PRN IV 10/21/24 11:00 10/25/24 03:30 1 MG Metoclopramide HCl 5 mg Q8HPRN PRN IV 10/21/24 11:00 10/23/24 21:07 5 MG Methylnaltrexone [place] 8 mg Q2D SC 10/21/24 17:00 10/23/24 17:25 8 MG Amitriptyline HCl 10 mg HS PO 10/25/24 22:00 Future Hold Vancomycin HCl 0 ml @ 0 mls/hr UD IV 10/24/24 10:30 Pantoprazole Sodium 50 ml @ 10 mls/hr Q5H IV 10/24/24 14:15 10/25/24 10:06 10 MLS/HR Amino Acids 0 ml @ 0 mls/hr PER PHARMACY IV 10/24/24 14:15 Sodium Chloride 10 ml QSHIFT@10,22 IV 10/24/24 22:00 10/25/24 10:12 10 ML Vancomycin HCl 250 ml @ 200 mls/hr Q12H IV 10/24/24 22:00 10/25/24 12:08 200 MLS/HR Fat Emulsion Intravenous 50 ml/ Sodium Acetate 20 meq/Potassium Phosphate 40 meq/ Magnesium Sulfate 12 meq/ Multivitamins 10 ml/Chromium/ Copper/Manganese/ Zinc 1 ml/Amino Acids/Dextrose/ Purified Water 1,033.0909 ml @ 43 mls/hr Q24H2M IV 10/25/24 22:00 10/26/24 21:59 Potassium Chloride 100 ml @ 50 mls/hr Q2H IV 10/25/24 12:30 10/25/24 16:29 General: Normal Head/Eyes: Normal ENT: Normal Neck: Normal Lungs: Normal Cardiovascular: Normal, Regular rate and rhythm Abdominal: Normal, No distension, Other (RUPERT drain ) Labs and Microbiology Laboratory Tests 10/25/24 05:07 Test 10/25/24 05:07 Range/Units Serum Glucose 141 H 74-106 mg/dL Ass/Plan Labs and/or images reviewed: Labs reviewed by me Problem List Neurology Metabolic encephalopathy due to septic shock Sedoanalgesia - Discontinued Opiod Dependence 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 Is on high dose IV hydromorphone. Patient has high-risk of presenting opiate withdrawal syndrome Patient presented nausea and abdominal pain probably secondary to opiate adverse effect. Indicated methylnaltrexone Cardiovascular NSTEMI probable type II Acute on diastolic congestive heart failure Completed echocardiogram: LVEF 70%, hyperdynamic LV, normal RV function but could not rule out enlargement Required IV furosemide Respiratory Acute respiratory failure - extubated URI due to Influenza [id number] left pleural effusion Currently extubated on 10/19/2024, on oxygen therapy with nasal canula at 3 L/min Pleural effusion seen in abdomen and pelvis CT Gastrointestinal Toxic megacolon - S/p hemicolectomy and ileostomy Stercoral colitis Pancreatitis GI bleed Pneumobilia - Resolved Acute hepatitis History of ethanol abuse History of gastric sleeve surgery History of esophagitis Completed abdomen and pelvis CT: Pneumobilia, pneumatosis coli in the right colon, gaseous and stool distention throughout colon, Small ascites, peripancreatic inflammation Currently under empiric IV antibiotics (Meropenem, previously Vancomycin) biochemistry specialist on 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 Planning on initiating clear liquid diet once cleared by surgery Completed abdomen and pelvis CT with p.o. contrast which ruled out perforation, continues with pancreatitis which has improved from previous imaging. Does present colitis which has not been resulted. [id number] left pleural effusion Probable cause of GI bleed could be esophagitis. Patient was on NSAIDs. Have discontinued NSAIDs at this point. On pantoprazole 40 mg IV b.i.d.. Consulted GI for GI bleed Genitourinary/Nephrology MORA hemodynamically mediated (VMN) Metabolic acidosis with increased AG (lactic acidosis) - Improved Required IV fluids, boluses and maintenance. Multiple transfusion of blood products Infectious Disease Septic shock secondary to toxic megacolon/colonic ischemia URI due to Influenza Awaiting results of culture Currently under empiric IV antibiotics (Meropenem and Vancomycin). Restarted vancomycin due to increased leukocytosis to cover Gram-positive cocci. No Oseltamivir, since it is PO Endocrine [place]'s disease Hypertriglyceridemia Hypothyroidism Dyslipidemia Received Hydrocortisone 200 mg once and maintenance 50 mg q6hs. Now on Methylprednisolone 40 mg IV bid Avoid propofol due to hypertriglyceridemia TSH within normal limits, no Levothyroxine in Med reconcile. Will hold on T4 treatment Hematology Severe normocytic Anemia with iron deficiency Acute blood loss Thrombocytopenia (questionable HIT I) Patient require multiple blood product transfusion. Presented new episode of GI bleed (4 PRBCs, one fresh frozen plasma, cryoprecipitate and platelets) Musculoskeletal Chronic back pain Neuropathic pain post Guillain-Dutton syndrome Ruled out pelvic fracture Currently on fentanyl drip. Avoid opiate withdrawal Due to recent mechanical fall, obtain pelvic x-ray which ruled out acute fracture Continue with IV opioids. Patient does not tolerate gabapentin or pregabalin. May benefit from amitriptyline once patient can tolerate p.o. diet. Ordered physical therapy evaluation. Nutrition: NPO, on TPN Prophylaxis: PUD (pantoprazole) and DVT (SCDs) Lines 10/17/2024 Avitia 10/17/2024 ET extubated 10/19/2024 10/17/2024 Right IJ CVC removed 10/24/2024 10/24/2024 PICC line 10/17/2024 RUPERT drain Drips Clinimix 42 Goals of care discussed with (Derrell) for over 18 minutes: Full code status Discussed plan with Dr. Wolff, patient and nurses: Patient is currently Telemetry status, s/p hemicolectomy and ileostomy, extubated, empiric IV antibiotic, requiring multiple blood product transfusions, IV iron, NPO, on Clinimix. Pending culture results. Presented fluid overload, discontinued IV fluids and indicated IV diuretics. Patient is on IV opiates, she will benefit from p.o. medication like amitriptyline (does not tolerate gabapentin nor pregabalin), she describes pain as neuropathic. We will advance diet once surgeon agrees, planning on advancing to clear liquid diet once patient is not nauseas, once patient tolerates oral intake we will discontinue central line, we will continue right now due to requirement of Clinimix. DC Vancomycin on 10/21/2024. Patient's nausea and vomiting may be secondary to IV opioids, indicated methylnaltrexone to avoid opiate induced constipation. Assessment/Plan s/p right hemicolectomy POD # 3 patient extubated vitals ok labs ok afebrile Plan: NPO continue IV antibiotics 10/21/24 s/p right hemicolectomy POD #5 patient complaint of nausea vitals ok labs ok afebrile abdomen soft, non distended, RUPERT drain serous fluid wound clean dry and intact Plan: NPO continue IV antibiotics and hydration 10/22/24 s/p right hemicolectomy POD #6 vitals ok labs ok afebrile abdomen soft, non distended, RUPERT drain serous fluid wound clean dry and intact stoma pink , some bleeding (check coags), stoma bag changed Plan: clear liquids , small sips order cbc, coags, cmp stat DC toradol Dr. Platt agrees with Plan 10/25/24 s/p right hemicolectomy POD #8 afebrile abdomen soft, non distended, RUPERT drain serous fluid wound clean dry and intact stoma functioning Plan: clear liquids , small sips Dr. Platt agrees with Plan Prognosis: Good Plan discussed with patient, , Dr. Platt Visit Coding Surgery Date of Service if different f: October 25, 2024 Billing Provider: PAO PLATT MD Surgery Visit Codes: [id number] INP/OBS CARE(HIGH) BETH CALDERON NP October 25, 2024 14:27
[2024-10-25] MEDS: POTASSIUM CHL 20MEQ/100ML 100 ML IV SCH (15:02)
[2024-10-25] MEDS: VANCOMYCIN 750mg/150ml 150 ML IV SCH (20:44)
[2024-10-25] MEDS: LORazepam 2MG/ML-1ML VIAL IV PRN (20:56)
[2024-10-25] MEDS ORDERED: AMITRIPTYLINE HCL 10 MG TAB PO SCH (22:00)
--- NOTE | 2024-10-25 23:14 | DVHPNRES ---
Progress Note Date Seen: October 25, 2024 Resident Creating Document: ENOC MATHIAS RESIDENT Medical Necessity Reason Pt with a Central, PICC or Fol: Yes The following are medically ne: PICC Line, Avitia Catheter Subjective Review of Systems Juni Isidro is a 38-year-old female patient who presents to the ED with complaint of 4-day history of constipation and abdominal pain, followed by diarrhea after taking laxatives, associated with progressive dyspnea in functional class IV. Patient was diagnosed with toxic megacolon requiring urgent surgery (hemicolectomy with ileostomy), admitted to ICU. Patient currently ventilated, obtained review of systems and history from EMR and who is at bedside. 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 Surgical History: Hiatal hernia repair, Laparoscopic gastric sleeve, Multiple spine surgeries, Arthroscopic knee surgery Family history: Diabetes Social History: Lives in [place] with family. Former heavy ethanol use, currently ~2 drinks/day. Denies current tobacco and other drug abuse Allergies: Doxycycline Home medication: Olanzapine 5 mg PO daily, Morphine, [place] 10 mg q4hs PRN, Losartan 100 mg PO daily, Meloxicam, Hydrocortisone 5 mg PO daily, Medroxyprogesterone 2.5 mg PO daily, Pregabalin 200 mg PO daily, Vitamin D 53584 PO weekly, Tizanidine 4 mg PO daily, Methocarbamol, Duloxetine 60 mg PO daily Patient seen and examined at bedside. Currently downgraded to Telemtry status, s/p hemicolectomy and ileostomy, extubated for approximately 24 hours. Optimize pain medication to avoid opiate withdrawal syndrome, patient's pain is more neuropathic due to Guillain-Bowden syndrome. Patient would benefit from gabapentin or pregabalin but patient does not tolerate medication due to confusion. A good option may be amitriptyline, but patient is currently NPO. Advanced to clear liquid diet on 10/22/2024, but started NPO due to GI bleed with severe anemia, ordered 2 PRBCs and Abdomen and pelvis CT which ruled out perforation (persists with pancreatitis, but is improving). Discontinued NSAIDs. Discontinued central line due to leukocytosis, placed PICC line for IV nutrition with TPN. Indicated methyl naltrexone to manage opiate induced constipation. Objective vital signs Vital Sign Date Time Temp Pulse Resp B/P (MAP) Pulse Ox O2 Delivery O2 Flow Rate FiO2 10/25/24 21:37 94 16 117/76 10/25/24 21:00 97.8 97 97.8 10/25/24 08:00 Nasal Cannula* 2 28 Total Intake and Output 10/24/24 10/24/24 10/25/24 15:00 23:00 07:00 Intake Total 300 ml 330 ml Output Total 1600 ml Balance 300 ml -1270 ml medications Current Medications Medications Dose Ordered Sig/Kelvin Route Start Time Stop Time Status Last Admin Dose Admin Vancomycin HCl 200 ml @ 200 mls/hr Q12HR IV 10/16/24 22:00 UNV Enoxaparin Sodium 40 mg DAILY SC 10/17/24 10:00 UNV Thiamine HCl 100 mg DAILY IV 10/17/24 10:00 10/25/24 10:12 100 MG Folic Acid 1 mg/ Dextrose 50.2 ml @ 200.8 mls/ hr DAILY INJ 10/17/24 10:00 10/25/24 10:10 200.8 MLS/HR Meropenem 50 ml @ 17 mls/hr Q8HR IV 10/17/24 06:00 10/24/24 23:17 17 MLS/HR Methylprednisolone Sodium Succinate 40 mg BID IV 10/17/24 22:00 10/25/24 10:12 40 MG Diagnostic Test (Pha) 1 strip Q6HR 10/18/24 18:00 10/25/24 17:47 1 STRIP Insulin Human Regular FOLLOW SLIDING SCALE Q6HR SC 10/18/24 18:00 10/25/24 18:00 3 UNITS Dextrose 50 ml UD IV 10/18/24 18:00 Hydromorphone HCl 0.5 mg Q2HPRN PRN IV 10/20/24 11:30 10/25/24 21:37 0.5 MG Metoclopramide HCl 5 mg Q8HPRN PRN IV 10/21/24 11:00 10/23/24 21:07 5 MG Methylnaltrexone [place] 8 mg Q2D SC 10/21/24 17:00 10/25/24 17:47 8 MG Amitriptyline HCl 10 mg HS PO 10/25/24 22:00 Hold Vancomycin HCl 0 ml @ 0 mls/hr UD IV 10/24/24 10:30 Pantoprazole Sodium 50 ml @ 10 mls/hr Q5H IV 10/24/24 14:15 10/25/24 21:00 10 MLS/HR Amino Acids 0 ml @ 0 mls/hr PER PHARMACY IV 10/24/24 14:15 Sodium Chloride 10 ml QSHIFT@10,22 IV 10/24/24 22:00 10/25/24 10:12 10 ML Fat Emulsion Intravenous 50 ml/ Sodium Acetate 20 meq/Potassium Phosphate 40 meq/ Magnesium Sulfate 12 meq/ Multivitamins 10 ml/Chromium/ Copper/Manganese/ Zinc 1 ml/Amino Acids/Dextrose/ Purified Water 1,033.0909 ml @ 43 mls/hr Q24H2M IV 10/25/24 22:00 10/26/24 21:59 Vancomycin HCl 150 ml @ 150 mls/hr Q8H IV 10/25/24 20:00 10/25/24 20:44 150 MLS/HR Lorazepam 1 mg Q4HP PRN IV 10/25/24 16:00 10/25/24 20:56 1 MG Examination Patient lying in bed, in no acute distress General: Lucid, afebrile, mucosae are moist, pale conjunctivae Cardiovascular: Normal S1 and S2. No murmurs, gallops or rubs Respiratory: Normal ventilation mechanics. Clear lung sounds on auscultation Abdomen: Mildly distended, Laparotomy surgical wound with no significant secretions, RUPERT drain with serosanguinous debit, stoma of Ileostomy seems viable with dark brown-greenish stool, no organomegaly, reduced bowel sounds MSK/skin: Mobilizes 4 limbs. Skin is dry and warm Neurological: Oriented in 3 spheres. No motor no sensitive deficits. Pupils are isocoric and reactive laboratory and microbiology Laboratory Tests 10/25/24 05:07 Test 10/25/24 05:07 Range/Units Serum Glucose 141 H 74-106 mg/dL Microbiology Date/Time Source Procedure Growth Status 10/24/24 11:20 Blood Blood Culture - Preliminary NO GROWTH AFTER 24 HOURS OF INCUBATION. 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 Is on high dose IV hydromorphone. Patient has high-risk of presenting opiate withdrawal syndrome Patient presented nausea and abdominal pain probably secondary to opiate adverse effect. Indicated methylnaltrexone Cardiovascular NSTEMI probable type II Acute on diastolic congestive heart failure Completed echocardiogram: LVEF 70%, hyperdynamic LV, normal RV function but could not rule out enlargement Required IV furosemide Respiratory Acute respiratory failure - extubated URI due to Influenza Fhxdg-[id number]-gzvlzknj left pleural effusion Currently extubated on 10/19/2024, on oxygen therapy with nasal canula at 3 L/min Pleural effusion seen in abdomen and pelvis CT Gastrointestinal Toxic megacolon - S/p hemicolectomy and ileostomy Stercoral colitis Pancreatitis GI bleed Pneumobilia - Resolved Acute hepatitis History of ethanol abuse History of gastric sleeve surgery History of esophagitis/GERD Completed abdomen and pelvis CT: Pneumobilia, pneumatosis coli in the right colon, gaseous and stool distention throughout colon, Small ascites, peripancreatic inflammation Currently under empiric IV antibiotics (Meropenem, previously Vancomycin) client technologies specialist on 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 Planning on initiating clear liquid diet once cleared by surgery Completed abdomen and pelvis CT with p.o. contrast which ruled out perforation, continues with pancreatitis which has improved from previous imaging. Does present colitis which has not been resulted. Naych-rl-wrgrmaih left pleural effusion Probable cause of GI bleed could be esophagitis. Patient was on NSAIDs. Have discontinued NSAIDs at this point. On pantoprazole 40 mg IV b.i.d.. Consulted GI for GI bleed: Ordered complemantary work up. Will evaluate need for endoscopy Genitourinary/Nephrology MORA hemodynamically mediated (VMN) Metabolic acidosis with increased AG (lactic acidosis) - Improved Required IV fluids, boluses and maintenance. Multiple transfusion of blood products Infectious Disease Septic shock secondary to toxic megacolon/colonic ischemia URI due to Influenza Awaiting results of culture Currently under empiric IV antibiotics (Meropenem and Vancomycin). Restarted vancomycin due to increased leukocytosis to cover Gram-positive cocci. No Oseltamivir, since it is PO Endocrine Ray's disease Hypertriglyceridemia Hypothyroidism Dyslipidemia Received Hydrocortisone 200 mg once and maintenance 50 mg q6hs. Now on Methylprednisolone 40 mg IV bid Avoid propofol due to hypertriglyceridemia TSH within normal limits, no Levothyroxine in Med reconcile. Will hold on T4 treatment Hematology Severe normocytic Anemia with iron deficiency Acute blood loss Thrombocytopenia (questionable HIT I) Patient require multiple blood product transfusion. Presented new episode of GI bleed (4 PRBCs, one fresh frozen plasma, cryoprecipitate and platelets) Musculoskeletal Chronic back pain Neuropathic pain post Guillain-Bowden syndrome Ruled out pelvic fracture Currently on fentanyl drip. Avoid opiate withdrawal Due to recent mechanical fall, obtain pelvic x-ray which ruled out acute fracture Continue with IV opioids. Patient does not tolerate gabapentin or pregabalin. May benefit from amitriptyline once patient can tolerate p.o. diet. Ordered physical therapy evaluation. Nutrition: NPO, on TPN Prophylaxis: PUD (pantoprazole) and DVT (SCDs) Lines 10/17/2024 Avitia 10/17/2024 ET extubated 10/19/2024 10/17/2024 Right IJ CVC removed 10/24/2024 10/24/2024 PICC line 10/17/2024 RUPERT drain Drips Clinimix 42 Goals of care discussed with (Derrell) for over 18 minutes: Full code status Discussed plan with Dr. Higgins, patient and nurses: Patient is currently Telemetry status, s/p hemicolectomy and ileostomy, extubated, empiric IV antibiotic, requiring multiple blood product transfusions, IV iron, NPO, on Clinimix. Pending culture results. Presented GI bleed, responding to multiple transfusions. Currently on bowel rest and Protonix drip. Evaluate CBC in am. Continue PT sessions.Surgery cleared patient for clear liquid diet. GI on board, SOB positive, no procedure at the moment, will monitor. Plan discussed with: Patient, Spouse, Other (Nurses) My Orders My Orders Orders - ENOC MATHIAS RESIDENT Procedure Category Date Status Time * Gi Dvh Oil Well Directional Surveyor CONS 10/25/24 Transmitted 02:34 Stool Bacterial MAGALY 10/25/24 Uncollected Culture 08:59 Kub Abdomen Single XY 10/25/24 Resulted View 09:07 Amino Acid PHA 10/25/24 In Process Infusion... W/Fat 22:00 Comprehensive LAB 10/26/24 Verified Metabolic Panel 04:00 Phosphorus LAB 10/26/24 Verified 04:00 Magnesium LAB 10/26/24 Verified 04:00 Triglycerides LAB 10/26/24 Verified 04:00 Tpn Per Pharmacy [facility] 10/25/24 In Process 22:00 Vancomycin Per [facility] 10/26/24 In Process Pharmacy Protoc 20:00 Vancomycin,Trough LAB 10/26/24 Verified 19:00 Vancomycin PHA 10/25/24 In Process 750mg/150ml 20:00 Apply Barrier Cream [facility] 10/25/24 In Process 10:12 Dietary Evaluation Review Comments: 1. Advance TPN to meet at least 75% of estimated needs 2. If GI route is accessible, TF Vital HP @ 70ml/hr x 24hr (goal). Start @ 20ml/hr, increase 10ml/hr Q$H until goal is reached. Water flush 50ml Q6H if allowed. 3. monitor electrolyte, triglycerides, PN tolerance, body weight change, skin integrity. Expected Outcomes/Goals: To meet at least 75% estimated needs within 7 days FU 2-3 days Date of Service: October 25, 2024 Billing Provider: NGOC HIGGINS MD Common Visit Codes: [id number] INP/OBS CARE(HIGH) Secondary Visit Codes: [id number] CARE PLAN 30 MINUTES ENOC MATHIAS RESIDENT October 25, 2024 23:14 NGOC HIGGINS MD October 26, 2024 16:36
[2024-10-26] VITALS (14 sets, daily range): BP systolic 102–141; BP diastolic 64–83; PULSE 66–113; RESP 16–20; TEMP 96.9–98.1; O2SAT 96–100
[2024-10-26] MEDS: TPN PER PHARMACY IV NR (00:04)
[2024-10-26] MEDS: POTASSIUM PHOSPHATE 22 MEQ in SODIUM CHL 0.9% 100 ML IV ONE (00:39)
[2024-10-26 06:00] LABS: Hemoglobin 8.1 g/dL (12.2-16.2)
[2024-10-26 06:06] LABS: Hematocrit 24.5 % (36.0-46.0); Mean Corpuscular Hgb Conc. 33.1 g/dL (32.0-36.0); Mean Corpuscular Volume 90.8 fL (80.0-100.0); Platelet Count (auto) 251 10^3/uL (140-450); White Blood Cell 19.8 10^3/uL (4.4-10.8)
[2024-10-26 06:09] LABS: Alanine Aminotransferase 18 U/L (7-40); Alkaline Phosphatase 94 U/L (46-116); Anion Gap 6 (5-15); Aspartate Aminotransferase 14 U/L (13-40); Bilirubin, Total 0.4 mg/dL (0.2-1.0); Carbon Dioxide 22 mmol/L (20-31); Phosphorus 3.6 mg/dL (2.4-5.1); Potassium 4.1 mmol/L (3.5-5.1); Sodium 137 mmol/L (136-145)
[2024-10-26 06:14] LABS: Albumin 2.9 g/dL (3.2-4.8); Blood Urea Nitrogen 8 mg/dL (9-23); Calcium 8.7 mg/dL (8.7-10.4); Chloride 109 mmol/L (98-107); Glucose 261 mg/dL (74-106); Total Protein 4.9 g/dL (5.7-8.2); Triglycerides 201 mg/dL (< 150)
[2024-10-26 06:19] LABS: Basophils % (manual) 0 (0.0-2.0); Blast Cells 0; Eosinophils % (manual) 0 (0-7); Myelocytes % 0; Promyelocytes % 0; Reactive Lymphocytes 0
[2024-10-26 06:51] LABS: Band Neutrophils % (manual) 6; Lymphocytes % (manual) 4 (10.0-50.0); Metamyelocytes % 1; Monocytes % (manual) 5 (0-12)
[2024-10-26 06:52] LABS: Platelet Estimate Adequate
--- NOTE | 2024-10-26 07:26 | DVH ---
EXAM: XR Chest, 1 View CLINICAL INDICATION: Et intubation TECHNIQUE: Frontal view of the chest. COMPARISON: XY CHEST XRAY 1 VIEW on DOS: 10/25/24, XY CHEST PORTABLE on DOS: 10/24/24, XY CHEST XRAY 1 VIEW on DOS: 10/24/24, XY CHEST XRAY 1 VIEW on DOS: 10/23/24, XY CHEST XRAY 1 VIEW on DOS: 10/22/24 FINDINGS: LUNGS AND PLEURAL SPACES: Left basilar atelectasis or pneumonia. No pneumothorax. HEART: Unremarkable. No cardiomegaly. MEDIASTINUM: Unremarkable. Normal mediastinal contour. BONES/JOINTS: Unremarkable. No acute fracture. TUBES, LINES AND DEVICES: Right peripherally inserted central catheter (PICC) tip in the superior v odell cava. OTHER FINDINGS: . . IMPRESSION: Left basilar atelectasis or pneumonia.
--- NOTE | 2024-10-26 07:46 | DVH ---
Exam: US US GUIDED VASCULAR ACCESS Date: 10/24/2024 01:04 PM Clinical History: PICC line insertion Comparison: None Findings: Targeted sonographic evaluation of the arm vein was obtained utilizing grayscale and color Doppler im aging. IMPRESSION: Sonographic assistance for central line placement. Please refer to procedural report for detailed fin dings.
--- NOTE | 2024-10-26 13:29 | DVHPN2 ---
Subjective Patient is still complains of feeling tired Patient has nausea. Able to tolerate clear liquid diet Denies hematemesis No red blood in ileostomy bag Changes from previous H/P or p: No Changes Objective Vitals Vital Signs Date Time Temp Pulse Resp B/P (MAP) Pulse Ox O2 Delivery O2 Flow Rate FiO2 10/26/24 11:19 86 17 141/83 10/26/24 09:00 98.1 96 98.1 10/25/24 20:00 Nasal Cannula* 2 28 Intake/Output Intake and Output 10/26/24 07:00 Intake Total 675 ml Output Total 30 ml Balance 645 ml IV Total 675 ml Drainage Total 30 ml General Appearance: Alert, Oriented X3, Cooperative, No acute distress, mild distress, moderate distress, severe distress, Other Lungs: Clear to auscultation, Normal air movement, Other Cardiovascular: Regular rate, Normal S1, Normal S2, No murmurs, Gallops, Rubs, Other Abdomen: Normal bowel sounds, Soft, No tenderness, No hepatospenomegaly, No masses, Other Medications Current Medications Medications Dose Ordered Sig/Kelvin Route Start Time Stop Time Status Last Admin Dose Admin Vancomycin HCl 200 ml @ 200 mls/hr Q12HR IV 10/16/24 22:00 UNV Enoxaparin Sodium 40 mg DAILY SC 10/17/24 10:00 UNV Thiamine HCl 100 mg DAILY IV 10/17/24 10:00 10/26/24 10:48 100 MG Folic Acid 1 mg/ Dextrose 50.2 ml @ 200.8 mls/ hr DAILY INJ 10/17/24 10:00 10/25/24 10:10 200.8 MLS/HR Meropenem 50 ml @ 17 mls/hr Q8HR IV 10/17/24 06:00 10/26/24 05:57 17 MLS/HR Methylprednisolone Sodium Succinate 40 mg BID IV 10/17/24 22:00 10/26/24 10:48 40 MG Diagnostic Test (Pha) 1 strip Q6HR 10/18/24 18:00 10/26/24 12:14 1 STRIP Insulin Human Regular FOLLOW SLIDING SCALE Q6HR SC 10/18/24 18:00 10/26/24 06:08 8 UNITS Dextrose 50 ml UD IV 10/18/24 18:00 Hydromorphone HCl 0.5 mg Q2HPRN PRN IV 10/20/24 11:30 10/26/24 10:49 0.5 MG Metoclopramide HCl 5 mg Q8HPRN PRN IV 10/21/24 11:00 10/23/24 21:07 5 MG Methylnaltrexone [place] 8 mg Q2D SC 10/21/24 17:00 10/25/24 17:47 8 MG Amitriptyline HCl 10 mg HS PO 10/25/24 22:00 Hold Vancomycin HCl 0 ml @ 0 mls/hr UD IV 10/24/24 10:30 Pantoprazole Sodium 50 ml @ 10 mls/hr Q5H IV 10/24/24 14:15 10/26/24 07:03 10 MLS/HR Amino Acids 0 ml @ 0 mls/hr PER PHARMACY IV 10/24/24 14:15 Sodium Chloride 10 ml QSHIFT@10,22 IV 10/24/24 22:00 10/26/24 10:00 10 ML Fat Emulsion Intravenous 50 ml/ Sodium Acetate 20 meq/Potassium Phosphate 40 meq/ Magnesium Sulfate 12 meq/ Multivitamins 10 ml/Chromium/ Copper/Manganese/ Zinc 1 ml/Amino Acids/Dextrose/ Purified Water 1,033.0909 ml @ 43 mls/hr Q24H2M IV 10/25/24 22:00 10/26/24 21:59 10/26/24 00:04 43 MLS/HR Vancomycin HCl 150 ml @ 150 mls/hr Q8H IV 10/25/24 20:00 10/26/24 04:20 150 MLS/HR Lorazepam 1 mg Q4HP PRN IV 10/25/24 16:00 10/26/24 12:21 1 MG Acetylcysteine 200 mg Q8HR NEB 10/26/24 14:00 Albuterol 2.5 mg Q8HR NEB 10/26/24 14:00 Laboratory Results Laboratory Tests 10/26/24 05:26 Chemistry Test 10/26/24 05:26 Albumin 2.9 g/dL (3.2-4.8) L Calcium Level 8.7 mg/dL (8.7-10.4) Magnesium Level 2.0 mg/dL (1.6-2.6) Phosphorus Level 3.6 mg/dL (2.4-5.1) Total Protein 4.9 g/dL (5.7-8.2) L Lipid panel Test 10/26/24 05:26 Triglycerides Level 201 mg/dL (< 150) H LFT Test 10/26/24 05:26 Alanine Aminotransferase (ALT) 18 U/L (7-40) Alkaline Phosphatase 94 U/L (46-116) Aspartate Amino Transferase (AST) 14 U/L (13-40) Total Bilirubin 0.4 mg/dL (0.2-1.0) Urinalysis Test 10/17/24 01:25 10/21/24 12:25 Urine Hyaline Casts Few /lpf (0 - 2) Urine Creatinine 87.60 mg/dL (30.0-125.0) Urine Sodium 35 mmol/L (40-220) L Urine Total Protein 114.1 mg/dL (1-14) H Urine Test Negative (Negative) Urine Color Light-yellow (Yellow) Urine Clarity Turbid (Clear) H Urine pH 5.5 (5.0-9.0) Urine Specific [place] 1.033 (1.001-1.035) Urine Protein Trace (Negative) H Urine Ketones Negative (Negative) Urine Blood Trace /uL (Negative) H Urine Nitrite Negative (Negative) Urine Bilirubin Negative (Negative) Urine Urobilinogen Normal mg/dL (Negative) Urine Leukocyte Esterase Negative /uL (Negative) Urine RBC 8 /hpf (0 - 4) Urine Microscopic WBC 4 /HPF (0-5) Urine Squamous Epithelial Cells None seen /hpf (<5) Urine Uric Acid Crystals Mod /hpf (None Seen) Urine Bacteria None seen /hpf (None Seen) Urine Mucus Few (None Seen) Urine Glucose Normal mg/dL (Normal) Microbiology Microbiology Date/Time Source Procedure Growth Status 10/24/24 11:20 Blood Blood Culture - Preliminary NO GROWTH AFTER 48 HOURS OF INCUBATION. 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 Frias Protonix and Carafate Monitor labs Possible GI procedures as needed to be planned on an outpatient basis Plan discussed with: Patient, Spouse My Orders Orders - LOGA BAINS Procedure Category Date Status Time Sucralfate Susp PHA 10/26/24 Transmitted (Carafate Susp) 22:00 Date of Service: October 26, 2024 Billing Provider: OLGA BAINS Common Visit Codes: [id number] INP/OBS CARE(HIGH) OLGA BAINS October 26, 2024 13:29
[2024-10-26] MEDS: ACETYLCYSTEINE 20%(200MG/ML) SOL 4ML NEB SCH (13:56)
[2024-10-26] MEDS: ALBUTEROL SULF 2.5 MG/0.5ML(0.5%) NEB SOLN NEB SCH (13:56)
[2024-10-26] MEDS: PANTOPRAZOLE 40 MG/10 ML VIAL INJ IV SCH (20:55)
[2024-10-26] MEDS: SUCRALFATE 1 GM/10 ML ORAL SUSP PO SCH (20:56)
[2024-10-26] MEDS: AMINO ACID INFUSION IN D10W 1,000 ML IV ONE (22:25)
--- NOTE | 2024-10-26 22:38 | DVHPNRES ---
Progress Note Date Seen: October 26, 2024 Resident Creating Document: ENOC MATHIAS RESIDENT Medical Necessity Reason Pt with a Central, PICC or Fol: Yes The following are medically ne: PICC Line, Avitia Catheter Subjective Review of Systems Juni Isidro is a 38-year-old female patient who presents to the ED with complaint of 4-day history of constipation and abdominal pain, followed by diarrhea after taking laxatives, associated with progressive dyspnea in functional class IV. Patient was diagnosed with toxic megacolon requiring urgent surgery (hemicolectomy with ileostomy), admitted to ICU. Patient currently ventilated, obtained review of systems and history from EMR and who is at bedside. 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 Surgical History: Hiatal hernia repair, Laparoscopic gastric sleeve, Multiple spine surgeries, Arthroscopic knee surgery Family history: Diabetes Social History: Lives in [place] with family. Former heavy ethanol use, currently ~2 drinks/day. Denies current tobacco and other drug abuse Allergies: Doxycycline Home medication: Olanzapine 5 mg PO daily, Morphine, Grady 10 mg q4hs PRN, Losartan 100 mg PO daily, Meloxicam, Hydrocortisone 5 mg PO daily, Medroxyprogesterone 2.5 mg PO daily, Pregabalin 200 mg PO daily, Vitamin D 87933 PO weekly, Tizanidine 4 mg PO daily, Methocarbamol, Duloxetine 60 mg PO daily Patient seen and examined at bedside. Currently Med/Surge status, s/p hemicolectomy and ileostomy. Optimize pain medication to avoid opiate withdrawal syndrome, patient's pain is more neuropathic due to Guillain-Merna syndrome have started amitriptyline. Patient would benefit from gabapentin or pregabalin but patient does not tolerate medication due to confusion. Advanced to full liquid diet on 10/26/2024, patient did present GI bleed with severe anemia on 10/24/2024, ordered 2 PRBCs and Abdomen and pelvis CT which ruled out perforation (persists with pancreatitis, but is improving). Discontinued NSAIDs. Discontinued central line due to leukocytosis, placed PICC line for IV nutrition with TPN. Indicated methyl naltrexone to manage opiate induced constipation. Objective vital signs Vital Sign Date Time Temp Pulse Resp B/P (MAP) Pulse Ox O2 Delivery O2 Flow Rate FiO2 10/26/24 21:00 97.9 113 18 136/66 (89) 98 97.9 10/26/24 19:31 Room Air* 0 21 Total Intake and Output 10/25/24 10/25/24 10/26/24 15:00 23:00 07:00 Intake Total 675 ml Output Total 30 ml Balance 675 ml -30 ml medications Current Medications Medications Dose Ordered Sig/Kelvin Route Start Time Stop Time Status Last Admin Dose Admin Vancomycin HCl 200 ml @ 200 mls/hr Q12HR IV 10/16/24 22:00 UNV Enoxaparin Sodium 40 mg DAILY SC 10/17/24 10:00 UNV Thiamine HCl 100 mg DAILY IV 10/17/24 10:00 10/26/24 10:48 100 MG Folic Acid 1 mg/ Dextrose 50.2 ml @ 200.8 mls/ hr DAILY INJ 10/17/24 10:00 10/25/24 10:10 200.8 MLS/HR Meropenem 50 ml @ 17 mls/hr Q8HR IV 10/17/24 06:00 10/26/24 14:00 17 MLS/HR Methylprednisolone Sodium Succinate 40 mg BID IV 10/17/24 22:00 10/26/24 20:55 40 MG Diagnostic Test (Pha) 1 strip Q6HR 10/18/24 18:00 10/26/24 18:00 1 STRIP Insulin Human Regular FOLLOW SLIDING SCALE Q6HR SC 10/18/24 18:00 10/26/24 18:24 12 UNITS Dextrose 50 ml UD IV 10/18/24 18:00 Hydromorphone HCl 0.5 mg Q2HPRN PRN IV 10/20/24 11:30 10/26/24 20:42 0.5 MG Metoclopramide HCl 5 mg Q8HPRN PRN IV 10/21/24 11:00 10/23/24 21:07 5 MG Methylnaltrexone [place] 8 mg Q2D SC 10/21/24 17:00 10/25/24 17:47 8 MG Amitriptyline HCl 10 mg HS PO 10/25/24 22:00 Hold Vancomycin HCl 0 ml @ 0 mls/hr UD IV 10/24/24 10:30 Amino Acids 0 ml @ 0 mls/hr PER PHARMACY IV 10/24/24 14:15 Sodium Chloride 10 ml QSHIFT@10,22 IV 10/24/24 22:00 10/26/24 21:13 10 ML Lorazepam 1 mg Q4HP PRN IV 10/25/24 16:00 10/26/24 18:00 1 MG Acetylcysteine 200 mg Q8HR NEB 10/26/24 14:00 10/26/24 19:31 200 MG Albuterol 2.5 mg Q8HR NEB 10/26/24 14:00 10/26/24 19:30 2.5 MG Sucralfate 1 gm BID@0600,2200 PO 10/26/24 22:00 10/26/24 20:56 1 GM Pantoprazole Sodium 40 mg BID IV 10/26/24 22:00 10/26/24 20:55 40 MG Vancomycin HCl 250 ml @ 200 mls/hr Q12H IV 10/27/24 03:00 Amitriptyline HCl 10 mg HS PO 10/27/24 22:00 UNV Examination Patient lying in bed, in no acute distress General: Lucid, afebrile, mucosae are moist, pale conjunctivae Cardiovascular: Normal S1 and S2. No murmurs, gallops or rubs Respiratory: Normal ventilation mechanics. Clear lung sounds on auscultation Abdomen: Mildly distended, Laparotomy surgical wound with no significant secretions, RUPERT drain with serosanguinous debit, stoma of Ileostomy seems viable with light brown stool, no organomegaly, reduced bowel sounds MSK/skin: Mobilizes 4 limbs. Skin is dry and warm Neurological: Oriented in 3 spheres. No motor no sensitive deficits. Pupils are isocoric and reactive laboratory and microbiology Laboratory Tests 10/26/24 05:26 Test 10/26/24 05:26 Range/Units Serum Glucose 261 H 74-106 mg/dL Microbiology Date/Time Source Procedure Growth Status 10/24/24 11:20 Blood Blood Culture - Preliminary NO GROWTH AFTER 48 HOURS OF INCUBATION. Resulted 10/17/24 18:48 Sputum Endotracheal Wash Gram Stain - Final Complete 10/17/24 18:48 Sputum Endotracheal Wash Respiratory Culture - Final Complete 10/17/24 18:20 Nose MRSA Screen - Final Complete 10/17/24 01:25 Voided Urine Urine Culture - Final Complete Problem List/Assessment/Plan Problem List/Assessment/Plan Neurology Metabolic encephalopathy due to septic shock Sedoanalgesia - Discontinued Opioid Dependence Neuropathic pain (gabapentin and pregabalin intolerance) History of Guillian-Merna syndrome - currently ambulates with walker History of opioid use History of Pseudotumor cerebri symptomatic by visual disturbance - s/p gastric sleeve Patient currently extubated. Is on high dose IV hydromorphone. Patient has high-risk of presenting opiate withdrawal syndrome. Indicated Amitriptyline for neuropathic pain to wean off from opioids Patient presented nausea and abdominal pain probably secondary to opiate adverse effect. Indicated methylnaltrexone Cardiovascular NSTEMI probable type II Acute on diastolic congestive heart failure Completed echocardiogram: LVEF 70%, hyperdynamic LV, normal RV function but could not rule out enlargement Required IV furosemide Respiratory Acute respiratory failure - extubated URI due to Influenza [id number] left pleural effusion Currently extubated on 10/19/2024, on oxygen therapy with nasal canula at 3 L/min Pleural effusion seen in abdomen and pelvis CT Gastrointestinal Toxic megacolon - S/p hemicolectomy and ileostomy Stercoral colitis Pancreatitis GI bleed Pneumobilia - Resolved Acute hepatitis History of ethanol abuse History of gastric sleeve surgery History of esophagitis/GERD Completed abdomen and pelvis CT: Pneumobilia, pneumatosis coli in the right colon, gaseous and stool distention throughout colon, Small ascites, peripancreatic inflammation Currently under empiric IV antibiotics (Meropenem, previously Vancomycin) account review specialist on 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 Planning on initiating clear liquid diet once cleared by surgery Completed abdomen and pelvis CT with p.o. contrast which ruled out perforation, continues with pancreatitis which has improved from previous imaging. Does present colitis which has not been resulted. [id number] left pleural effusion Probable cause of GI bleed could be esophagitis. Patient was on NSAIDs. Have discontinued NSAIDs at this point. On pantoprazole 40 mg IV b.i.d.. Consulted GI for GI bleed: Ordered complementary work up. Will evaluate need for endoscopy Genitourinary/Nephrology MORA hemodynamically mediated (VMN) Metabolic acidosis with increased AG (lactic acidosis) - Improved Required IV fluids, boluses and maintenance. Multiple transfusion of blood products Infectious Disease Septic shock secondary to toxic megacolon/colonic ischemia URI due to Influenza Awaiting results of culture Currently under empiric IV antibiotics (Meropenem and Vancomycin). Restarted vancomycin due to increased leukocytosis to cover Gram-positive cocci. No Oseltamivir, since it is PO Endocrine Ray's disease Hypertriglyceridemia Hypothyroidism Dyslipidemia Received Hydrocortisone 200 mg once and maintenance 50 mg q6hs. Now on Methylprednisolone 40 mg IV bid Avoid propofol due to hypertriglyceridemia TSH within normal limits, no Levothyroxine in Med reconcile. Will hold on T4 treatment Hematology Severe normocytic Anemia with iron deficiency Acute blood loss Thrombocytopenia (questionable HIT I) Patient require multiple blood product transfusion. Presented new episode of GI bleed (4 PRBCs, one fresh frozen plasma, cryoprecipitate and platelets) Musculoskeletal Chronic back pain Neuropathic pain post Guillain-Merna syndrome Ruled out pelvic fracture Currently on fentanyl drip. Avoid opiate withdrawal Due to recent mechanical fall, obtain pelvic x-ray which ruled out acute fracture Continue with IV opioids. Patient does not tolerate gabapentin or pregabalin. May benefit from amitriptyline once patient can tolerate p.o. diet. Ordered physical therapy evaluation. Nutrition: NPO, on TPN Prophylaxis: PUD (pantoprazole) and DVT (SCDs) Lines 10/17/2024 Avitia DC 10/26/2024 10/17/2024 ET extubated 10/19/2024 10/17/2024 Right IJ CVC removed 10/24/2024 10/24/2024 PICC line 10/17/2024 RUPERT drain Drips Clinimix 42 Goals of care discussed with (Derrell) for over 18 minutes: Full code status Discussed plan with Dr. Higgins, patient and nurses: Patient is currently Med/Surge status, s/p hemicolectomy and ileostomy, extubated, empiric IV antibiotic, requiring multiple blood product transfusions, IV iron, on Clinimix, started full liquid diet. Pending culture results. Presented GI bleed, responding to multiple transfusions. Continue PT sessions. GI on board, SOB positive, no procedure at the moment, will monitor. Plan discussed with: Patient, Spouse, Other (Nurses) My Orders My Orders Orders - ENOC MATHIAS RESIDENT Procedure Category Date Status Time Transfer Orders XFER 10/26/24 Transmitted 06:45 Discontinue Tele KIRA 10/26/24 In Process 06:45 Respiratory Culture MAGALY 10/26/24 Uncollected W/ Gs 10:25 Acetylcysteine PHA 10/26/24 In Process Inhalation 20% 14:00 Albuterol Medneb PHA 10/26/24 In Process (Ventolin Medneb) 14:00 Amino Acid Infusion PHA 10/26/24 In Process In D10w (Clinimix 4. 22:00 Comprehensive LAB 10/27/24 Verified Metabolic Panel 04:00 Magnesium LAB 10/27/24 Verified 04:00 Phosphorus LAB 10/27/24 Verified 04:00 Clinimix Per Pharmacy KIRA 10/26/24 In Process 22:00 Clostridium Difficile MAGALY 10/26/24 Logged Toxin 13:19 Pantoprazole PHA 10/26/24 In Process (Protonix) 22:00 Discontinue Avitia KIRA 10/26/24 In Process Catheter 16:30 Vancomycin PHA 10/27/24 In Process 1.25gm/250ml 03:00 Vancomycin Per KIRA 10/26/24 In Process Pharmacy Protoc 20:39 Vancomycin,Trough LAB 10/28/24 Verified 02:00 Amitriptyline Hcl PHA 10/27/24 Logged Tablet (Elavil Tablet) 22:00 Amitriptyline Hcl PHA 10/26/24 Logged Tablet (Elavil Tablet) 22:30 Dietary Evaluation Review Comments: 1. Advance TPN to meet at least 75% of estimated needs 2. If GI route is accessible, TF Vital HP @ 70ml/hr x 24hr (goal). Start @ 20ml/hr, increase 10ml/hr Q$H until goal is reached. Water flush 50ml Q6H if allowed. 3. monitor electrolyte, triglycerides, PN tolerance, body weight change, skin integrity. Expected Outcomes/Goals: To meet at least 75% estimated needs within 7 days FU 2-3 days Date of Service: October 26, 2024 Billing Provider: NGOC HIGGINS MD Common Visit Codes: [id number] INP/OBS CARE(HIGH) Secondary Visit Codes: [id number] CARE PLAN 30 MINUTES ENOC MATHIAS RESIDENT October 26, 2024 22:38 NGOC HIGGINS MD October 27, 2024 12:54
[2024-10-26] MEDS: AMITRIPTYLINE HCL 10 MG TAB ONE (23:41)
[2024-10-27] VITALS (15 sets, daily range): BP systolic 125–156; BP diastolic 67–86; PULSE 59–104; RESP 16–20; TEMP 96.6–98.9; O2SAT 95–100
[2024-10-27] MEDS: AMITRIPTYLINE HCL 10 MG TAB PO ONE (00:03)
[2024-10-27] MEDS: HYDROmorphone HCL 2 MG/ML VL/or syr IV PRN (00:07)
[2024-10-27] MEDS: VANCOMYCIN 1.25GM/250ML 250 ML IV SCH (03:09)
--- NOTE | 2024-10-27 05:29 | DVH ---
EXAM: XR Chest, 1 View CLINICAL INDICATION: Et intubation TECHNIQUE: Frontal view of the chest. COMPARISON: XY CHEST XRAY 1 VIEW on DOS: 10/26/24, XY CHEST XRAY 1 VIEW on DOS: 10/25/24, XY CHEST PO RTABLE on DOS: 10/24/24, XY CHEST XRAY 1 VIEW on DOS: 10/24/24, XY CHEST XRAY 1 VIEW on DOS: 10/23/24 FINDINGS: LUNGS AND PLEURAL SPACES: Left basilar atelectasis or pneumonia. No pneumothorax. HEART: Unremarkable. No cardiomegaly. MEDIASTINUM: Unremarkable. Normal mediastinal contour. BONES/JOINTS: Unremarkable. No acute fracture. TUBES, LINES AND DEVICES: Right peripherally inserted central catheter (PICC) tip in the superior v odell cava. OTHER FINDINGS: . . . IMPRESSION: Left basilar atelectasis or pneumonia.
[2024-10-27 08:57] LABS: Alanine Aminotransferase 18 U/L (7-40); Albumin 3.2 g/dL (3.2-4.8); Alkaline Phosphatase 99 U/L (46-116); Anion Gap 8 (5-15); Aspartate Aminotransferase 16 U/L (13-40); BUN/Creatinine Ratio 17.5 (10.0-20.0); Calcium 9.2 mg/dL (8.7-10.4); Carbon Dioxide 24 mmol/L (20-31); Glucose 101 mg/dL (74-106); Magnesium 2.2 mg/dL (1.6-2.6); Phosphorus 3.9 mg/dL (2.4-5.1); Sodium 144 mmol/L (136-145)
[2024-10-27 08:58] LABS: Bilirubin, Total 0.4 mg/dL (0.2-1.0)
[2024-10-27 09:00] LABS: Blood Urea Nitrogen 7 mg/dL (9-23); Chloride 112 mmol/L (98-107); Potassium 3.2 mmol/L (3.5-5.1); Total Protein 5.5 g/dL (5.7-8.2)
[2024-10-27 09:31] LABS: Hematocrit 27.1 % (36.0-46.0); Hemoglobin 8.9 g/dL (12.2-16.2); Mean Corpuscular Hemoglobin 30.4 pg (28.0-32.0); Mean Corpuscular Volume 92.2 fL (80.0-100.0); Platelet Count (auto) 290 10^3/uL (140-450); Red Blood Cells 2.93 10^6/uL (4.0-5.20); White Blood Cell 17.6 10^3/uL (4.4-10.8)
[2024-10-27 09:48] LABS: Red Cell Distribution Width 20.3 % (11.8-14.3)
[2024-10-27] MEDS: POTASSIUM CHL 20MEQ/100ML 100 ML IV SCH (09:50)
[2024-10-27 09:51] LABS: Basophils % (manual) 0 (0.0-2.0); Blast Cells 0; Eosinophils % (manual) 0 (0-7); Promyelocytes % 0; Reactive Lymphocytes 0
[2024-10-27 10:44] LABS: Band Neutrophils % (manual) 2; Lymphocytes % (manual) 6 (10.0-50.0); Metamyelocytes % 2; Monocytes % (manual) 4 (0-12); Myelocytes % 1; Platelet Estimate Adequate
[2024-10-27] MEDS ORDERED: IPRATROPIUM BROM 0.5 MG/2.5ML INH SOL NEB SCH (12:00)
[2024-10-27] MEDS: NYSTATIN (MOUTH-THROAT) 500,000 UNITS/5 ML SUSP MT ONE (13:30)
[2024-10-27] MEDS ORDERED: SODIUM CHL 3% HYPERTONIC 500 ML BAG IN ONE (14:30)
[2024-10-27] MEDS: IPRATROPIUM BROM 0.5 MG/2.5ML INH SOL NEB SCH (15:46)
[2024-10-27] MEDS: SODIUM CHLORIDE 0.9 % NEB SOLN 3ML NEB ONE (15:47)
[2024-10-27] MEDS: NYSTATIN (MOUTH-THROAT) 500,000 UNITS/5 ML SUSP MT SCH (18:00)
--- NOTE | 2024-10-27 20:40 | DVHPNRES ---
Progress Note Date Seen: October 27, 2024 Resident Creating Document: ENOC MATHIAS RESIDENT Medical Necessity Reason Pt with a Central, PICC or Fol: Yes The following are medically ne: PICC Line, Avitia Catheter Subjective Review of Systems Juni Isidro is a 38-year-old female patient who presents to the ED with complaint of 4-day history of constipation and abdominal pain, followed by diarrhea after taking laxatives, associated with progressive dyspnea in functional class IV. Patient was diagnosed with toxic megacolon requiring urgent surgery (hemicolectomy with ileostomy), admitted to ICU. Patient currently ventilated, obtained review of systems and history from EMR and who is at bedside. 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 Surgical History: Hiatal hernia repair, Laparoscopic gastric sleeve, Multiple spine surgeries, Arthroscopic knee surgery Family history: Diabetes Social History: Lives in [place] with family. Former heavy ethanol use, currently ~2 drinks/day. Denies current tobacco and other drug abuse Allergies: Doxycycline Home medication: Olanzapine 5 mg PO daily, Morphine, [place] 10 mg q4hs PRN, Losartan 100 mg PO daily, Meloxicam, Hydrocortisone 5 mg PO daily, Medroxyprogesterone 2.5 mg PO daily, Pregabalin 200 mg PO daily, Vitamin D 62556 PO weekly, Tizanidine 4 mg PO daily, Methocarbamol, Duloxetine 60 mg PO daily Patient seen and examined at bedside. Currently Med/Surge status, s/p hemicolectomy and ileostomy. Optimize pain medication to avoid opiate withdrawal syndrome, patient's pain is more neuropathic due to Guillain-[place] syndrome have started amitriptyline. Patient would benefit from gabapentin or pregabalin but patient does not tolerate medication due to confusion. Advanced to mechanical soft diet on 10/27/2024, patient did present GI bleed with severe anemia on 10/24/2024, ordered 2 PRBCs and Abdomen and pelvis CT which ruled out perforation (persists with pancreatitis, but is improving). Discontinued NSAIDs. Discontinued central line due to leukocytosis, placed PICC line for IV nutrition with TPN. Indicated methyl naltrexone to manage opiate induced constipation. Patient has oral thrush, indicating Nystatin. Switched IV steroids to PO for [place]'s disease. Discharge planning to home health for PT sessions. Objective vital signs Vital Sign Date Time Temp Pulse Resp B/P (MAP) Pulse Ox O2 Delivery O2 Flow Rate FiO2 10/27/24 17:00 98.9 80 20 137/73 (94) 96 98.9 10/27/24 10:00 Room Air 0.0 10/27/24 10:00 21 Total Intake and Output 10/26/24 10/26/24 10/27/24 15:00 23:00 07:00 Intake Total 280 ml 50 ml 1370 ml Output Total 125 ml Balance 280 ml 50 ml 1245 ml medications Current Medications Medications Dose Ordered Sig/Kelvin Route Start Time Stop Time Status Last Admin Dose Admin Vancomycin HCl 200 ml @ 200 mls/hr Q12HR IV 10/16/24 22:00 UNV Enoxaparin Sodium 40 mg DAILY SC 10/17/24 10:00 UNV Meropenem 50 ml @ 17 mls/hr Q8HR IV 10/17/24 06:00 10/27/24 13:33 17 MLS/HR Metoclopramide HCl 5 mg Q8HPRN PRN IV 10/21/24 11:00 10/23/24 21:07 5 MG Methylnaltrexone [place] 8 mg Q2D SC 10/21/24 17:00 10/27/24 17:10 8 MG Vancomycin HCl 0 ml @ 0 mls/hr UD IV 10/24/24 10:30 Sodium Chloride 10 ml QSHIFT@10,22 IV 10/24/24 22:00 10/27/24 10:01 10 ML Lorazepam 1 mg Q4HP PRN IV 10/25/24 16:00 10/27/24 17:06 1 MG Albuterol 2.5 mg Q8HR NEB 10/26/24 14:00 10/27/24 15:46 2.5 MG Sucralfate 1 gm BID@0600,2200 PO 10/26/24 22:00 10/27/24 05:41 1 GM Pantoprazole Sodium 40 mg BID IV 10/26/24 22:00 10/27/24 10:01 40 MG Vancomycin HCl 250 ml @ 200 mls/hr Q12H IV 10/27/24 03:00 10/27/24 17:04 200 MLS/HR Amitriptyline HCl 10 mg HS PO 10/27/24 22:00 Hydromorphone HCl 0.5 mg Q4HPRN PRN IV 10/26/24 22:45 10/27/24 15:43 0.5 MG Ipratropium [place] 0.5 mg Q8HR NEB 10/27/24 14:00 10/27/24 15:46 0.5 MG Nystatin 5 ml QID MT 10/27/24 18:00 10/27/24 18:00 5 ML Multivitamins/ Minerals 1 tab DAILY PO 10/28/24 10:00 Hydrocortisone 30 mg DAILY@BREAKFAST PO 10/28/24 08:00 UNV Hydrocortisone 20 mg DAILY@LUNCH PO 10/28/24 12:00 UNV Hydrocortisone 10 mg DAILY@DINNER PO 10/28/24 17:30 UNV Examination Patient lying in bed, in no acute distress General: Lucid, afebrile, mucosae are moist, pale conjunctivae Cardiovascular: Normal S1 and S2. No murmurs, gallops or rubs Respiratory: Normal ventilation mechanics. Clear lung sounds on auscultation Abdomen: Mildly distended, Laparotomy surgical wound with no significant secretions, RUPERT drain with scarce serous debit, stoma of Ileostomy seems viable with light brown stool, no organomegaly, reduced bowel sounds MSK/skin: Mobilizes 4 limbs. Skin is dry and warm Neurological: Oriented in 3 spheres. No motor no sensitive deficits. Pupils are isocoric and reactive laboratory and microbiology Laboratory Tests 10/27/24 08:01 Test 10/27/24 08:01 Range/Units Serum Glucose 101 74-106 mg/dL Microbiology Date/Time Source Procedure Growth Status 10/26/24 16:36 Stool Stool Culture - Preliminary Resulted 10/26/24 16:36 Stool Shiga Toxin I & II - Final Resulted 10/24/24 11:20 Blood Blood Culture - Preliminary NO GROWTH AFTER 72 HOURS OF INCUBATION. 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 Is on high dose IV hydromorphone. Patient has high-risk of presenting opiate withdrawal syndrome. Indicated Amitriptyline for neuropathic pain to wean off from opioids Patient presented nausea and abdominal pain probably secondary to opiate adverse effect. Indicated methylnaltrexone Cardiovascular NSTEMI probable type II Acute on diastolic congestive heart failure Completed echocardiogram: LVEF 70%, hyperdynamic LV, normal RV function but could not rule out enlargement Required IV furosemide Respiratory Acute respiratory failure - extubated URI due to Influenza [id number] left pleural effusion Currently extubated on 10/19/2024, on oxygen therapy with nasal canula at 3 L/min Pleural effusion seen in abdomen and pelvis CT Gastrointestinal Toxic megacolon - S/p hemicolectomy and ileostomy Stercoral colitis Pancreatitis GI bleed Pneumobilia - Resolved Acute hepatitis History of ethanol abuse History of gastric sleeve surgery History of esophagitis/GERD Completed abdomen and pelvis CT: Pneumobilia, pneumatosis coli in the right colon, gaseous and stool distention throughout colon, Small ascites, peripancreatic inflammation Currently under empiric IV antibiotics (Meropenem, previously Vancomycin) 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 Planning on initiating clear liquid diet once cleared by surgery Completed abdomen and pelvis CT with p.o. contrast which ruled out perforation, continues with pancreatitis which has improved from previous imaging. Does present colitis which has not been resulted. [id number] left pleural effusion Probable cause of GI bleed could be esophagitis. Patient was on NSAIDs. Have discontinued NSAIDs at this point. On pantoprazole 40 mg IV b.i.d.. Consulted GI for GI bleed: Ordered complementary work up. Will evaluate need for endoscopy Genitourinary/Nephrology MORA hemodynamically mediated (VMN) Metabolic acidosis with increased AG (lactic acidosis) - Improved Oral Thrush Required IV fluids, boluses and maintenance. Multiple transfusion of blood products Indicated Nystatin Infectious Disease Septic shock secondary to toxic megacolon/colonic ischemia URI due to Influenza Awaiting results of culture Currently under empiric IV antibiotics (Meropenem and Vancomycin). Restarted vancomycin due to increased leukocytosis to cover Gram-positive cocci. No Oseltamivir, since it is PO Endocrine [place]'s disease Hypertriglyceridemia Questionable Hypothyroidism Dyslipidemia Received Hydrocortisone 200 mg once and maintenance 50 mg q6hs. Switched Methylprednisolone 40 mg IV bid to Hydrocortisone PO 30mg/20mg/10mg Avoid propofol due to hypertriglyceridemia TSH within normal limits, no Levothyroxine in Med reconcile. Will hold on T4 treatment Hematology Severe normocytic Anemia with iron deficiency Acute blood loss Thrombocytopenia (questionable HIT I) Patient require multiple blood product transfusion. 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 Avoid opiate withdrawal Due to recent mechanical fall, obtain pelvic x-ray which ruled out acute fracture Continue with IV opioids. Patient does not tolerate gabapentin or pregabalin. May benefit from amitriptyline once patient can tolerate p.o. diet. Ordered physical therapy evaluation. Nutrition: Mechanical soft Prophylaxis: PUD (pantoprazole) and DVT (SCDs) Lines 10/17/2024 Avitia DC 10/26/2024 10/17/2024 ET extubated 10/19/2024 10/17/2024 Right IJ CVC removed 10/24/2024 10/24/2024 PICC line 10/17/2024 RUPERT drain Drips Clinimix DC Goals of care discussed with patient and (Derrell) for over 18 minutes: Full code status Discussed plan with Dr. Higgins, patient and nurses: Patient is currently Med/Surge status, s/p hemicolectomy and ileostomy, extubated, empiric IV antibiotic, requiring multiple blood product transfusions, IV iron, started mechanical soft diet. GI bleed has resolved, appreciate GI input. Continue PT sessions and tolerating diet. Discharge planning underway to home health with PT sessions. Plan discussed with: Patient, Spouse, Other (Nurses) My Orders My Orders Orders - ENOC MATHIAS RESIDENT Procedure Category Date Status Time Vancomycin PHA 10/27/24 In Process 1.25gm/250ml 03:00 Vancomycin Per [facility]A 10/26/24 In Process Pharmacy Protoc 20:39 Vancomycin,Trough LAB 10/28/24 Verified 02:00 Amitriptyline Hcl PHA 10/27/24 In Process Tablet (Elavil Tablet) 22:00 Hydromorphone PHA 10/26/24 In Process Injection (Dilaudid 22:45 Respiratory Culture MAGALY 10/27/24 Logged W/ Gs 09:15 Sputum Induction RT 10/27/24 Logged 09:15 Ipratropium Medneb PHA 10/27/24 In Process (Atrovent Medneb) 14:00 Pharmacy [facility] 10/28/24 In Process Clarification: 06:00 Hydrocortisone Tablet PHA 10/28/24 Logged (Cortef Tablet) 08:00 Hydrocortisone Tablet PHA 10/28/24 Logged (Cortef Tablet) 17:30 Hydrocortisone Tablet PHA 10/27/24 Logged (Cortef Tablet) 20:30 Folic Acid Tablet PHA 10/27/24 Logged 20:30 Folic Acid Tablet PHA 10/28/24 Logged 10:00 * Major General CONS 10/27/24 Transmitted Consult Hydrocortisone Tablet PHA 10/28/24 Logged (Cortef Tablet) 12:00 Dietary Evaluation Review Comments: 1. Advance TPN to meet at least 75% of estimated needs 2. If GI route is accessible, TF Vital HP @ 70ml/hr x 24hr (goal). Start @ 20ml/hr, increase 10ml/hr Q$H until goal is reached. Water flush 50ml Q6H if allowed. 3. monitor electrolyte, triglycerides, PN tolerance, body weight change, skin integrity. Expected Outcomes/Goals: To meet at least 75% estimated needs within 7 days FU 2-3 days Date of Service: October 27, 2024 Billing Provider: NGOC HIGGINS MD Common Visit Codes: 75170-XVLTROHGCA INP/OBS CARE(HIGH) Secondary Visit Codes: 29845-[id number] CARE PLAN 30 MINUTES ENOC MATHIAS RESIDENT October 27, 2024 20:40 NGOC HIGGINS MD Oct 30, 2024 11:42
--- NOTE | 2024-10-27 21:04 | DVHPN2 ---
Progress Note - Dictate Date Seen: October 27, 2024 Medical Necessity Reason Pt with a Central, PICC or Fol: Yes The following are medically ne: PICC Line, Avitia Catheter Subjective POD # 10 S/P Laparotomy, ileostomy;Right hemicolectomy for ischemic right bowel and cecum and toxic megacolon Patient seen at bedside, sitting up in bed awake resting comfortably She continues to complain of some lower abdominal pain Her ileostomy is functional and there was no blood in her ileostomy She is tolerating a diet that was advanced today She has not had any prior colonoscopy Surgical consult told her that reversal of colostomy will happen after six months vital signs Vital Sign Date Time Temp Pulse Resp B/P (MAP) Pulse Ox O2 Delivery O2 Flow Rate FiO2 10/27/24 17:00 98.9 80 20 137/73 (94) 96 98.9 10/27/24 10:00 Room Air 0.0 10/27/24 10:00 21 Total Intake and Output 10/26/24 10/26/24 10/27/24 15:00 23:00 07:00 Intake Total 280 ml 50 ml 1370 ml Output Total 125 ml Balance 280 ml 50 ml 1245 ml medications Current Medications Medications Dose Ordered Sig/Kelvin Route Start Time Stop Time Status Last Admin Dose Admin Vancomycin HCl 200 ml @ 200 mls/hr Q12HR IV 10/16/24 22:00 UNV Enoxaparin Sodium 40 mg DAILY SC 10/17/24 10:00 UNV Meropenem 50 ml @ 17 mls/hr Q8HR IV 10/17/24 06:00 10/27/24 13:33 17 MLS/HR Metoclopramide HCl 5 mg Q8HPRN PRN IV 10/21/24 11:00 10/23/24 21:07 5 MG Methylnaltrexone [place] 8 mg Q2D SC 10/21/24 17:00 10/27/24 17:10 8 MG Vancomycin HCl 0 ml @ 0 mls/hr UD IV 10/24/24 10:30 Sodium Chloride 10 ml QSHIFT@10,22 IV 10/24/24 22:00 10/27/24 10:01 10 ML Lorazepam 1 mg Q4HP PRN IV 10/25/24 16:00 10/27/24 17:06 1 MG Albuterol 2.5 mg Q8HR NEB 10/26/24 14:00 10/27/24 15:46 2.5 MG Sucralfate 1 gm BID@0600,2200 PO 10/26/24 22:00 10/27/24 05:41 1 GM Pantoprazole Sodium 40 mg BID IV 10/26/24 22:00 10/27/24 10:01 40 MG Vancomycin HCl 250 ml @ 200 mls/hr Q12H IV 10/27/24 03:00 10/27/24 17:04 200 MLS/HR Amitriptyline HCl 10 mg HS PO 10/27/24 22:00 Hydromorphone HCl 0.5 mg Q4HPRN PRN IV 10/26/24 22:45 10/27/24 15:43 0.5 MG Ipratropium [place] 0.5 mg Q8HR NEB 10/27/24 14:00 10/27/24 15:46 0.5 MG Nystatin 5 ml QID MT 10/27/24 18:00 10/27/24 18:00 5 ML Multivitamins/ Minerals 1 tab DAILY PO 10/28/24 10:00 Hydrocortisone 30 mg DAILY@BREAKFAST PO 10/28/24 08:00 Hydrocortisone 20 mg DAILY@LUNCH PO 10/28/24 12:00 Hydrocortisone 10 mg DAILY@DINNER PO 10/28/24 17:30 Folic Acid 1 mg DAILY PO 10/28/24 10:00 Ferrous Sulfate 325 mg TIDWM PO 10/28/24 08:00 objective General: Lucid, afebrile, mucosae are moist, pale conjunctivae Cardiovascular: Normal S1 and S2. No murmurs, gallops or rubs Respiratory: Normal ventilation mechanics. Clear lung sounds on auscultation Abdomen: soft ,NT , ND; surgical wound intact, RUPERT drain with scarce serous debit, stoma of Ileostomy seems viable with light brown stool, no organomegaly, reduced bowel sounds MSK/skin: Mobilizes 4 limbs. Skin is dry and warm Neurological: Oriented in 3 spheres. No motor no sensitive deficits. laboratory and microbiology Laboratory Tests 10/27/24 08:01 Test 10/27/24 08:01 Range/Units Serum Glucose 101 74-106 mg/dL Problems(with codes): (1) Toxic megacolon (2) Severe sepsis (3) Pancreatitis (4) Acute renal failure (5) Transaminitis Prognosis PLAN Optimize pain medication to avoid opiate withdrawal syndrome, patient's pain is more neuropathic due to Guillain-Mittie syndrome ;have started amitriptyline. Advanced to mechanical soft diet on 10/27/2024, Patient did present GI bleed Likely from ischemic colitiswith severe anemia on 10/24/2024, ordered 2 PRBCs Abdomen and pelvis CT which ruled out perforation ; Discontinued NSAIDs. Discontinued central line due to leukocytosis, placed PICC line for IV nutrition with TPN. Indicated methyl naltrexone to manage opiate induced constipation. Patient has oral thrush, indicating Nystatin. Switched IV steroids to PO for [place]'s disease. Discharge planning to home health for PT sessions. patient was given my contact information to arrange outpatient follow up and arrange elective screening colonoscopy prior to reversal of colostomy Dietary Evaluation Review Comments: 1. Advance TPN to meet at least 75% of estimated needs 2. If GI route is accessible, TF Vital HP @ 70ml/hr x 24hr (goal). Start @ 20ml/hr, increase 10ml/hr Q$H until goal is reached. Water flush 50ml Q6H if allowed. 3. monitor electrolyte, triglycerides, PN tolerance, body weight change, skin integrity. Expected Outcomes/Goals: To meet at least 75% estimated needs within 7 days FU 2-3 days Plan discussed with: Patient LILLI BERNAL MD October 27, 2024 21:04
[2024-10-27] MEDS: AMITRIPTYLINE HCL 10 MG TAB PO SCH (21:31)
[2024-10-27] MEDS: FOLIC ACID 1 MG TAB PO ONE (21:32)
[2024-10-27] MEDS: HYDROCORTISONE 10 MG TAB PO ONE (21:32)
[2024-10-27] MEDS: KETOROLAC TROMETH 30 MG/ML 1ML VIAL IV ONE (23:53)
[2024-10-28] VITALS (15 sets, daily range): BP systolic 128–144; BP diastolic 74–82; PULSE 75–99; RESP 16–19; TEMP 96.8–98.6; O2SAT 95–100
[2024-10-28 02:13] LABS: Hematocrit 26.7 % (36.0-46.0); Hemoglobin 8.6 g/dL (12.2-16.2); Mean Corpuscular Hemoglobin 30.2 pg (28.0-32.0); Mean Corpuscular Hgb Conc. 32.4 g/dL (32.0-36.0); Mean Corpuscular Volume 93.5 fL (80.0-100.0); Platelet Count (auto) 289 10^3/uL (140-450); Red Blood Cells 2.85 10^6/uL (4.0-5.20); Red Cell Distribution Width 21.7 % (11.8-14.3); White Blood Cell 17.8 10^3/uL (4.4-10.8)
[2024-10-28 02:16] LABS: Basophils % (manual) 0 (0.0-2.0); Blast Cells 0; Eosinophils % (manual) 0 (0-7); Promyelocytes % 0; Reactive Lymphocytes 0
[2024-10-28 02:29] LABS: Anion Gap 9 (5-15); Carbon Dioxide 24 mmol/L (20-31); Potassium 4.1 mmol/L (3.5-5.1); Sodium 142 mmol/L (136-145)
[2024-10-28 02:30] LABS: Calcium 8.8 mg/dL (8.7-10.4)
[2024-10-28 02:31] LABS: Chloride 109 mmol/L (98-107)
[2024-10-28 02:35] LABS: BUN/Creatinine Ratio 14.6 (10.0-20.0)
[2024-10-28 02:36] LABS: Blood Urea Nitrogen 7 mg/dL (9-23); Glucose 113 mg/dL (74-106)
[2024-10-28 02:37] LABS: Phosphorus 2.8 mg/dL (2.4-5.1)
[2024-10-28 02:56] LABS: Anisocytosis Slight; Band Neutrophils % (manual) 3; Lymphocytes % (manual) 14 (10.0-50.0); Metamyelocytes % 2; Monocytes % (manual) 2 (0-12); Myelocytes % 2; Platelet Estimate Adequate
[2024-10-28] MEDS: HYDROCORTISONE 10 MG TAB PO SCH ×3 (08:24→17:56)
[2024-10-28] MEDS: FERROUS SULFATE 325mg EC TAB PO SCH (08:24)
[2024-10-28] MEDS: FOLIC ACID 1 MG TAB PO SCH (10:11)
[2024-10-28] MEDS: MULTIPLE VITAMINS W/ MINERALS TAB PO SCH (10:11)
--- NOTE | 2024-10-28 11:55 | DVHPN2 ---
Progress Note - Dictate Date Seen: October 28, 2024 Medical Necessity Reason Pt with a Central, PICC or Fol: Yes The following are medically ne: PICC Line, Avitia Catheter Subjective E: no major events o/n. meche po well. no complaints. vital signs Vital Sign Date Time Temp Pulse Resp B/P (MAP) Pulse Ox O2 Delivery O2 Flow Rate FiO2 10/28/24 10:12 93 19 158/83 10/28/24 10:00 97 Room Air 0.0 10/28/24 10:00 21 10/28/24 09:45 96.9 96.9 Total Intake and Output 10/27/24 10/27/24 10/28/24 15:00 23:00 07:00 Intake Total 250 ml 2091 ml 250 ml Output Total 755 ml 50 ml Balance 250 ml 1336 ml 200 ml medications Current Medications Medications Dose Ordered Sig/Kelvin Route Start Time Stop Time Status Last Admin Dose Admin Vancomycin HCl 200 ml @ 200 mls/hr Q12HR IV 10/16/24 22:00 UNV Enoxaparin Sodium 40 mg DAILY SC 10/17/24 10:00 UNV Metoclopramide HCl 5 mg Q8HPRN PRN IV 10/21/24 11:00 10/23/24 21:07 5 MG Methylnaltrexone [place] 8 mg Q2D SC 10/21/24 17:00 10/27/24 17:10 8 MG Vancomycin HCl 0 ml @ 0 mls/hr UD IV 10/24/24 10:30 Sodium Chloride 10 ml QSHIFT@10,22 IV 10/24/24 22:00 10/28/24 10:11 10 ML Lorazepam 1 mg Q4HP PRN IV 10/25/24 16:00 10/28/24 03:08 1 MG Albuterol 2.5 mg Q8HR NEB 10/26/24 14:00 10/28/24 05:48 2.5 MG Sucralfate 1 gm BID@0600,2200 PO 10/26/24 22:00 10/28/24 05:30 1 GM Pantoprazole Sodium 40 mg BID IV 10/26/24 22:00 10/28/24 10:11 40 MG Vancomycin HCl 250 ml @ 200 mls/hr Q12H IV 10/27/24 03:00 10/28/24 03:00 200 MLS/HR Amitriptyline HCl 10 mg HS PO 10/27/24 22:00 10/27/24 21:31 10 MG Hydromorphone HCl 0.5 mg Q4HPRN PRN IV 10/26/24 22:45 10/28/24 10:12 0.5 MG Ipratropium [place] 0.5 mg Q8HR NEB 10/27/24 14:00 10/28/24 05:48 0.5 MG Nystatin 5 ml QID MT 10/27/24 18:00 10/28/24 05:30 5 ML Multivitamins/ Minerals 1 tab DAILY PO 10/28/24 10:00 10/28/24 10:11 1 TAB Hydrocortisone 30 mg DAILY@BREAKFAST PO 10/28/24 08:00 10/28/24 08:24 30 MG Hydrocortisone 20 mg DAILY@LUNCH PO 10/28/24 12:00 Hydrocortisone 10 mg DAILY@DINNER PO 10/28/24 17:30 Folic Acid 1 mg DAILY PO 10/28/24 10:00 10/28/24 10:11 1 MG Ferrous Sulfate 325 mg TIDWM PO 10/28/24 08:00 10/28/24 08:24 325 MG Meropenem 50 ml @ 17 mls/hr Q8HR IV 10/28/24 14:00 UNV objective GEN: NAD. alert. ABD: incision clean and dry. ileostomy functioning well. RUPERT 30 mL serous. PATH: ischemic colitis with mucosal necrosis laboratory and microbiology Laboratory Tests 10/28/24 01:53 Test 10/28/24 01:53 Range/Units Serum Glucose 113 H 74-106 mg/dL Assessment/Plan A: 1. s/p ex lap with right colectomy POD #11 for ischemic colitis improving. P: 1. improving from surgery POV. 2. dc plan per hospitalist. Dietary Evaluation Review Comments: 1. Advance TPN to meet at least 75% of estimated needs 2. If GI route is accessible, TF Vital HP @ 70ml/hr x 24hr (goal). Start @ 20ml/hr, increase 10ml/hr Q$H until goal is reached. Water flush 50ml Q6H if allowed. 3. monitor electrolyte, triglycerides, PN tolerance, body weight change, skin integrity. Expected Outcomes/Goals: To meet at least 75% estimated needs within 7 days FU 2-3 days Plan discussed with: Patient, Spouse MIRIAM ARCHIBALD MD October 28, 2024 11:55
[2024-10-28] MEDS ORDERED: MEROPENEM 1GM IVPB 50 ML IV SCH (14:00)
[2024-10-28] MEDS: MEROPENEM 1GM IVPB 50 ML IV SCH (17:57)
[2024-10-28] MEDS ORDERED: METH12IN SC (19:51)
[2024-10-28] MEDS ORDERED: HYDR10T PO ×3 (19:51)
[2024-10-28] MEDS ORDERED: PANT40T PO (19:51)
[2024-10-28] MEDS ORDERED: LEVO500T91 PO (19:51)
[2024-10-28] MEDS ORDERED: AMIT-399 PO (19:51)
[2024-10-28] MEDS ORDERED: SUCR1SUS26 PO (19:51)
[2024-10-28] MEDS ORDERED: FER325T PO (19:51)
[2024-10-28] MEDS ORDERED: MULT-351 PO (19:51)
[2024-10-28] MEDS ORDERED: IPR002IS NEB (19:51)
[2024-10-28] MEDS ORDERED: NYS5LQ MT (19:51)
[2024-10-28] MEDS ORDERED: FOLI-119 PO (19:51)
--- NOTE | 2024-10-28 20:01 | DVHPNRES ---
Progress Note Date Seen: October 28, 2024 Resident Creating Document: ENOC MATHIAS RESIDENT Medical Necessity Reason Pt with a Central, PICC or Fol: Yes The following are medically ne: PICC Line, Avitia Catheter Subjective Review of Systems Juni Isidro is a 38-year-old female patient who presents to the ED with complaint of 4-day history of constipation and abdominal pain, followed by diarrhea after taking laxatives, associated with progressive dyspnea in functional class IV. Patient was diagnosed with toxic megacolon requiring urgent surgery (hemicolectomy with ileostomy), admitted to ICU. Patient currently ventilated, obtained review of systems and history from EMR and who is at bedside. 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 Surgical History: Hiatal hernia repair, Laparoscopic gastric sleeve, Multiple spine surgeries, Arthroscopic knee surgery Family history: Diabetes Social History: Lives in [place] with family. Former heavy ethanol use, currently ~2 drinks/day. Denies current tobacco and other drug abuse Allergies: Doxycycline Home medication: Olanzapine 5 mg PO daily, Morphine, Maddock 10 mg q4hs PRN, Losartan 100 mg PO daily, Meloxicam, Hydrocortisone 5 mg PO daily, Medroxyprogesterone 2.5 mg PO daily, Pregabalin 200 mg PO daily, Vitamin D 74648 PO weekly, Tizanidine 4 mg PO daily, Methocarbamol, Duloxetine 60 mg PO daily Patient seen and examined at bedside. Currently Med/Surge status, s/p hemicolectomy and ileostomy. 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 Advanced to mechanical soft diet on 10/27/2024 well tolerated, patient did present GI bleed with severe anemia on 10/24/2024, ordered 2 PRBCs and Abdomen and pelvis CT which ruled out perforation (persists with pancreatitis, but is improving). Discontinued NSAIDs. Indicated methylnaltrexone to manage opiate induced constipation. Patient has oral thrush, indicating Nystatin. 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 Discharge planning to home health for PT sessions, postponed due to persistent leukocytosis, will reevaluate tomorrow. Objective vital signs Vital Sign Date Time Temp Pulse Resp B/P (MAP) Pulse Ox O2 Delivery O2 Flow Rate FiO2 10/28/24 18:49 83 18 151/87 10/28/24 16:43 97.8 96 97.8 10/28/24 14:16 Room Air 0.0 10/28/24 14:16 21 Total Intake and Output 10/27/24 10/27/24 10/28/24 15:00 23:00 07:00 Intake Total 250 ml 2091 ml 250 ml Output Total 755 ml 50 ml Balance 250 ml 1336 ml 200 ml medications Current Medications Medications Dose Ordered Sig/Kelvin Route Start Time Stop Time Status Last Admin Dose Admin Vancomycin HCl 200 ml @ 200 mls/hr Q12HR IV 10/16/24 22:00 UNV Enoxaparin Sodium 40 mg DAILY SC 10/17/24 10:00 UNV Metoclopramide HCl 5 mg Q8HPRN PRN IV 10/21/24 11:00 10/23/24 21:07 5 MG Methylnaltrexone [place] 8 mg Q2D SC 10/21/24 17:00 10/27/24 17:10 8 MG Vancomycin HCl 0 ml @ 0 mls/hr UD IV 10/24/24 10:30 Sodium Chloride 10 ml QSHIFT@10,22 IV 10/24/24 22:00 10/28/24 10:11 10 ML Lorazepam 1 mg Q4HP PRN IV 10/25/24 16:00 10/28/24 12:50 1 MG Albuterol 2.5 mg Q8HR NEB 10/26/24 14:00 10/28/24 14:16 2.5 MG Sucralfate 1 gm BID@0600,2200 PO 10/26/24 22:00 10/28/24 05:30 1 GM Pantoprazole Sodium 40 mg BID IV 10/26/24 22:00 10/28/24 10:11 40 MG Vancomycin HCl 250 ml @ 200 mls/hr Q12H IV 10/27/24 03:00 10/28/24 15:45 200 MLS/HR Amitriptyline HCl 10 mg HS PO 10/27/24 22:00 10/27/24 21:31 10 MG Hydromorphone HCl 0.5 mg Q4HPRN PRN IV 10/26/24 22:45 10/28/24 18:19 0.5 MG Ipratropium [place] 0.5 mg Q8HR NEB 10/27/24 14:00 10/28/24 14:16 0.5 MG Nystatin 5 ml QID MT 10/27/24 18:00 10/28/24 17:57 5 ML Multivitamins/ Minerals 1 tab DAILY PO 10/28/24 10:00 10/28/24 10:11 1 TAB Hydrocortisone 30 mg DAILY@BREAKFAST PO 10/28/24 08:00 10/28/24 08:24 30 MG Hydrocortisone 20 mg DAILY@LUNCH PO 10/28/24 12:00 10/28/24 11:53 20 MG Hydrocortisone 10 mg DAILY@DINNER PO 10/28/24 17:30 10/28/24 17:56 10 MG Folic Acid 1 mg DAILY PO 10/28/24 10:00 10/28/24 10:11 1 MG Ferrous Sulfate 325 mg TIDWM PO 10/28/24 08:00 10/28/24 17:56 325 MG Meropenem 50 ml @ 17 mls/hr Q8H IV 10/28/24 18:00 10/28/24 17:57 17 MLS/HR Examination Patient lying in bed, in no acute distress General: Lucid, afebrile, mucosae are moist, pale conjunctivae Cardiovascular: Normal S1 and S2. No murmurs, gallops or rubs Respiratory: Normal ventilation mechanics. Clear lung sounds on auscultation Abdomen: Soft, Laparotomy surgical wound with no significant secretions, RUPERT drain removed. Stoma of Ileostomy seems viable with light brown stool, no organomegaly, normal bowel sounds MSK/skin: Mobilizes 4 limbs. Skin is dry and warm Neurological: Oriented in 3 spheres. No motor no sensitive deficits. Pupils are isocoric and reactive laboratory and microbiology Laboratory Tests 10/28/24 01:53 Test 10/28/24 01:53 Range/Units Serum Glucose 113 H 74-106 mg/dL Microbiology Date/Time Source Procedure Growth Status 10/26/24 16:36 Stool Stool Culture - Preliminary Resulted 10/26/24 16:36 Stool Shiga Toxin I & II - Final Resulted 10/24/24 11:20 Blood Blood Culture - Preliminary NO GROWTH AFTER 72 HOURS OF INCUBATION. 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 Is on high dose IV hydromorphone. Patient has high-risk of presenting opiate withdrawal syndrome. Indicated Amitriptyline for neuropathic pain to wean off from opioids Patient presented nausea and abdominal pain probably secondary to opiate adverse effect. Indicated methylnaltrexone Currently on hydrocortisone 30 mg/20 mg/10 mg daily. Planning to taper down to her normal regimen as outpatient. Should decrease by 5 mg per dose per week. Cardiovascular NSTEMI probable type II Acute on diastolic congestive heart failure Completed echocardiogram: LVEF 70%, hyperdynamic LV, normal RV function but could not rule out enlargement Required IV furosemide Respiratory Acute respiratory failure - extubated URI due to Influenza [id number] left pleural effusion Currently extubated on 10/19/2024, on oxygen therapy with nasal canula at 3 L/min Pleural effusion seen in abdomen and pelvis CT Gastrointestinal Toxic megacolon/colonic ischemia - S/p hemicolectomy and ileostomy Stercoral colitis Pancreatitis GI bleed Pneumobilia - Resolved Acute hepatitis History of ethanol abuse History of gastric sleeve surgery History of esophagitis/GERD Completed abdomen and pelvis CT: Pneumobilia, pneumatosis coli in the right colon, gaseous and stool distention throughout colon, Small ascites, peripancreatic inflammation Currently under empiric IV antibiotics (Meropenem, previously Vancomycin) translational specialist on 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 Planning on initiating clear liquid diet once cleared by surgery Completed abdomen and pelvis CT with p.o. contrast which ruled out perforation, continues with pancreatitis which has improved from previous imaging. Does present colitis which has not been resulted. Buyqr-bv-[id number] left pleural effusion Probable cause of GI bleed could be esophagitis. Patient was on NSAIDs. Have discontinued NSAIDs at this point. On pantoprazole 40 mg IV b.i.d.. Consulted GI for GI bleed: Ordered complementary work up. Will evaluate need for endoscopy Genitourinary/Nephrology MORA hemodynamically mediated (VMN) Metabolic acidosis with increased AG (lactic acidosis) - Improved Oral Thrush Required IV fluids, boluses and maintenance. Multiple transfusion of blood products Indicated Nystatin Infectious Disease Septic shock secondary to toxic megacolon/colonic ischemia URI due to Influenza Awaiting results of culture Currently under empiric IV antibiotics (Meropenem and Vancomycin). Restarted vancomycin due to increased leukocytosis to cover Gram-positive cocci. No Oseltamivir, since it is PO. Planning to discharge with Levofloxacin. Endocrine Hancock's disease Hypertriglyceridemia Questionable Hypothyroidism Dyslipidemia Received Hydrocortisone 200 mg once and maintenance 50 mg q6hs. Switched Methylprednisolone 40 mg IV bid to Hydrocortisone PO 30mg/20mg/10mg Avoid propofol due to hypertriglyceridemia TSH within normal limits, no Levothyroxine in Med reconcile. Will hold on T4 treatment Hematology Severe normocytic Anemia with iron deficiency Acute blood loss Thrombocytopenia (questionable HIT I) Patient require multiple blood product transfusion. Presented new episode of GI bleed (4 PRBCs, one fresh frozen plasma, cryoprecipitate and platelets) Musculoskeletal Chronic back pain Neuropathic pain post Guillain-Williamsport syndrome Ruled out pelvic fracture Currently on fentanyl drip. Avoid opiate withdrawal Due to recent mechanical fall, obtain pelvic x-ray which ruled out acute fracture Continue with IV opioids. Patient does not tolerate gabapentin or pregabalin. May benefit from amitriptyline once patient can tolerate p.o. diet. Ordered physical therapy evaluation. Nutrition: Mechanical soft Prophylaxis: PUD (pantoprazole) and DVT (SCDs) Lines 10/17/2024 Avitia DC 10/26/2024 10/17/2024 ET extubated 10/19/2024 10/17/2024 Right IJ CVC removed 10/24/2024 10/24/2024 PICC line 10/17/2024 RUPERT drain removed 10/28/2024 Drips Clinimix DC Goals of care discussed with patient and (Derrell) for over 18 minutes: Full code status Discussed plan with Dr. Wolff, patient and nurses: Patient is currently Med/Surge status, s/p hemicolectomy and ileostomy, extubated, empiric IV antibiotic, requiring multiple blood product transfusions, IV iron, started mechanical soft diet. GI bleed has resolved, appreciate GI input. Continue PT sessions and tolerating diet. Discharge planning underway to home health with PT sessions. Postpone discharge due to persistent leukocytosis. Eventually we will discharge with p.o. levofloxacin. Patient currently on high dose hydrocortisone, we will have to taper down as outpatient 5 mg per dose every week. Plan discussed with: Patient, Spouse, Other (Nurses) My Orders My Orders Orders - ENOC MATHISA RESIDENT Procedure Category Date Status Time Hydrocortisone Tablet PHA 10/28/24 In Process (Cortef Tablet) 08:00 Hydrocortisone Tablet PHA 10/28/24 In Process (Cortef Tablet) 17:30 Folic Acid Tablet PHA 10/28/24 In Process 10:00 * Tablet Repair CONS 10/27/24 Transmitted Consult Hydrocortisone Tablet PHA 10/28/24 In Process (Cortef Tablet) 12:00 Ferrous Sulfate Tablet PHA 10/28/24 In Process 08:00 Vancomycin,Trough LAB 10/29/24 Verified 14:00 Complete Blood Count LAB 10/29/24 Verified 04:00 Creatinine LAB 10/29/24 Verified 04:00 Vancomycin Per KIRA 10/29/24 In Process Pharmacy Protoc 14:00 Meropenem 1gm Ivpb PHA 10/28/24 In Process (Merrem 1gm/ Ns) 18:00 Dietary Evaluation Review Comments: 1. Advance TPN to meet at least 75% of estimated needs 2. If GI route is accessible, TF Vital HP @ 70ml/hr x 24hr (goal). Start @ 20ml/hr, increase 10ml/hr Q$H until goal is reached. Water flush 50ml Q6H if allowed. 3. monitor electrolyte, triglycerides, PN tolerance, body weight change, skin integrity. Expected Outcomes/Goals: To meet at least 75% estimated needs within 7 days FU 2-3 days ENOC MATHIAS RESIDENT October 28, 2024 20:01
[2024-10-29] VITALS (15 sets, daily range): BP systolic 115–159; BP diastolic 60–95; PULSE 69–109; RESP 16–19; TEMP 96.3–98.1; O2SAT 95–100
[2024-10-29] MEDS: PANTOPRAZOLE 40 MG TAB PO SCH (05:43)
[2024-10-29 06:42] LABS: Hematocrit 26.5 % (36.0-46.0); Hemoglobin 8.7 g/dL (12.2-16.2); Mean Corpuscular Hemoglobin 30.9 pg (28.0-32.0); Mean Corpuscular Hgb Conc. 32.9 g/dL (32.0-36.0); Platelet Count (auto) 276 10^3/uL (140-450); Red Blood Cells 2.82 10^6/uL (4.0-5.20); Red Cell Distribution Width 23.2 % (11.8-14.3); White Blood Cell 13.2 10^3/uL (4.4-10.8)
[2024-10-29 06:57] LABS: Basophils % (manual) 0 (0.0-2.0); Blast Cells 0; Metamyelocytes % 0; Myelocytes % 0; Promyelocytes % 0; Reactive Lymphocytes 0
[2024-10-29 07:06] LABS: Alanine Aminotransferase 16 U/L (7-40); Alkaline Phosphatase 101 U/L (46-116); Anion Gap 9 (5-15); Aspartate Aminotransferase 17 U/L (13-40); Calcium 9.2 mg/dL (8.7-10.4); Carbon Dioxide 24 mmol/L (20-31); Magnesium 1.9 mg/dL (1.6-2.6); Sodium 142 mmol/L (136-145)
[2024-10-29 07:07] LABS: Bilirubin, Total 0.3 mg/dL (0.2-1.0); Phosphorus 3.9 mg/dL (2.4-5.1)
[2024-10-29 07:15] LABS: Blood Urea Nitrogen < 5 mg/dL (9-23); Chloride 109 mmol/L (98-107); Glucose 127 mg/dL (74-106)
[2024-10-29 07:16] LABS: Albumin 3.1 g/dL (3.2-4.8); BUN/Creatinine Ratio 10.2 (10.0-20.0); Potassium 2.5 mmol/L (3.5-5.1); Total Protein 5.3 g/dL (5.7-8.2)
[2024-10-29 08:53] LABS: Anisocytosis Moderate; Band Neutrophils % (manual) 3; Eosinophils % (manual) 1 (0-7); Lymphocytes % (manual) 13 (10.0-50.0); Monocytes % (manual) 8 (0-12); Platelet Estimate Adequate; Polychromasia Slight
--- NOTE | 2024-10-29 09:55 | DVHPN2 ---
Progress Note - Dictate Date Seen: October 29, 2024 Medical Necessity Reason Pt with a Central, PICC or Fol: Yes The following are medically ne: PICC Line, Avitia Catheter vital signs Vital Sign Date Time Temp Pulse Resp B/P (MAP) Pulse Ox O2 Delivery O2 Flow Rate FiO2 10/29/24 09:35 75 16 123/73 10/29/24 08:30 98.1 97 98.1 10/29/24 06:47 Room Air 0.0 10/29/24 06:47 21 Total Intake and Output 10/28/24 10/28/24 10/29/24 15:00 23:00 07:00 Intake Total 84 ml 1170 ml 350 ml Output Total 300 ml 150 ml Balance 84 ml 870 ml 200 ml medications Current Medications Medications Dose Ordered Sig/Kelvin Route Start Time Stop Time Status Last Admin Dose Admin Vancomycin HCl 200 ml @ 200 mls/hr Q12HR IV 10/16/24 22:00 UNV Enoxaparin Sodium 40 mg DAILY SC 10/17/24 10:00 UNV Metoclopramide HCl 5 mg Q8HPRN PRN IV 10/21/24 11:00 10/23/24 21:07 5 MG Methylnaltrexone [place] 8 mg Q2D SC 10/21/24 17:00 10/27/24 17:10 8 MG Vancomycin HCl 0 ml @ 0 mls/hr UD IV 10/24/24 10:30 Sodium Chloride 10 ml QSHIFT@10,22 IV 10/24/24 22:00 10/29/24 09:38 10 ML Lorazepam 1 mg Q4HP PRN IV 10/25/24 16:00 10/29/24 09:33 1 MG Albuterol 2.5 mg Q8HR NEB 10/26/24 14:00 10/29/24 06:43 2.5 MG Sucralfate 1 gm BID@0600,2200 PO 10/26/24 22:00 10/29/24 05:43 1 GM Vancomycin HCl 250 ml @ 200 mls/hr Q12H IV 10/27/24 03:00 10/29/24 03:10 200 MLS/HR Amitriptyline HCl 10 mg HS PO 10/27/24 22:00 10/28/24 21:57 10 MG Hydromorphone HCl 0.5 mg Q4HPRN PRN IV 10/26/24 22:45 10/29/24 09:35 0.5 MG Ipratropium [place] 0.5 mg Q8HR NEB 10/27/24 14:00 10/29/24 06:43 0.5 MG Nystatin 5 ml QID MT 10/27/24 18:00 10/29/24 05:43 5 ML Multivitamins/ Minerals 1 tab DAILY PO 10/28/24 10:00 10/29/24 09:32 1 TAB Hydrocortisone 30 mg DAILY@BREAKFAST PO 10/28/24 08:00 10/29/24 09:33 30 MG Hydrocortisone 20 mg DAILY@LUNCH PO 10/28/24 12:00 10/28/24 11:53 20 MG Hydrocortisone 10 mg DAILY@DINNER PO 10/28/24 17:30 10/28/24 17:56 10 MG Folic Acid 1 mg DAILY PO 10/28/24 10:00 10/29/24 09:32 1 MG Ferrous Sulfate 325 mg TIDWM PO 10/28/24 08:00 10/29/24 09:32 325 MG Meropenem 50 ml @ 17 mls/hr Q8H IV 10/28/24 18:00 10/29/24 09:32 17 MLS/HR Pantoprazole Sodium 40 mg BID@0600,1700 PO 10/29/24 06:00 10/29/24 05:43 40 MG laboratory and microbiology Laboratory Tests 10/29/24 05:04 Test 10/29/24 05:04 Range/Units Serum Glucose 127 H 74-106 mg/dL Assessment/Plan Impression Acute hypoxemic respiratory failure Metabolic encephalopathy Hx of Guillain-[place] NSTEMI MORA Patient seen and examined Events S/p extubation Low oxygen requirementsmin 02On 3 liters nasal cannula No acute events Labs and imaging reviewed Management Supplemental oxygen Titrate to maintain sats 90% or above Incentive spirometry Continue antibiotics F/u cultures Bronchodilators Monitor renal function Monitor electrolytes Supplement as needed DVT prophylaxis ok to dc Dietary Evaluation Review Comments: 1. Advance TPN to meet at least 75% of estimated needs 2. If GI route is accessible, TF Vital HP @ 70ml/hr x 24hr (goal). Start @ 20ml/hr, increase 10ml/hr Q$H until goal is reached. Water flush 50ml Q6H if allowed. 3. monitor electrolyte, triglycerides, PN tolerance, body weight change, skin integrity. Expected Outcomes/Goals: To meet at least 75% estimated needs within 7 days FU 2-3 days Plan discussed with: Other (rn) MICHAEL BOLTON MD October 29, 2024 09:55
--- NOTE | 2024-10-29 10:37 | DVHPN2 ---
Progress Note - Dictate Date Seen: October 29, 2024 Medical Necessity Reason Pt with a Central, PICC or Fol: Yes The following are medically ne: PICC Line, Avitia Catheter Subjective E: no major events o/n. meche po well. no complaints. vital signs Vital Sign Date Time Temp Pulse Resp B/P (MAP) Pulse Ox O2 Delivery O2 Flow Rate FiO2 10/29/24 09:35 75 16 123/73 10/29/24 08:30 98.1 97 98.1 10/29/24 06:47 Room Air 0.0 10/29/24 06:47 21 Total Intake and Output 10/28/24 10/28/24 10/29/24 15:00 23:00 07:00 Intake Total 84 ml 1170 ml 350 ml Output Total 300 ml 150 ml Balance 84 ml 870 ml 200 ml medications Current Medications Medications Dose Ordered Sig/Kelvin Route Start Time Stop Time Status Last Admin Dose Admin Vancomycin HCl 200 ml @ 200 mls/hr Q12HR IV 10/16/24 22:00 UNV Enoxaparin Sodium 40 mg DAILY SC 10/17/24 10:00 UNV Metoclopramide HCl 5 mg Q8HPRN PRN IV 10/21/24 11:00 10/23/24 21:07 5 MG Methylnaltrexone [place] 8 mg Q2D SC 10/21/24 17:00 10/27/24 17:10 8 MG Vancomycin HCl 0 ml @ 0 mls/hr UD IV 10/24/24 10:30 Sodium Chloride 10 ml QSHIFT@10,22 IV 10/24/24 22:00 10/29/24 09:38 10 ML Lorazepam 1 mg Q4HP PRN IV 10/25/24 16:00 10/29/24 09:33 1 MG Albuterol 2.5 mg Q8HR NEB 10/26/24 14:00 10/29/24 06:43 2.5 MG Sucralfate 1 gm BID@0600,2200 PO 10/26/24 22:00 10/29/24 05:43 1 GM Vancomycin HCl 250 ml @ 200 mls/hr Q12H IV 10/27/24 03:00 10/29/24 03:10 200 MLS/HR Amitriptyline HCl 10 mg HS PO 10/27/24 22:00 10/28/24 21:57 10 MG Hydromorphone HCl 0.5 mg Q4HPRN PRN IV 10/26/24 22:45 10/29/24 09:35 0.5 MG Ipratropium [place] 0.5 mg Q8HR NEB 10/27/24 14:00 10/29/24 06:43 0.5 MG Nystatin 5 ml QID MT 10/27/24 18:00 10/29/24 05:43 5 ML Multivitamins/ Minerals 1 tab DAILY PO 10/28/24 10:00 10/29/24 09:32 1 TAB Hydrocortisone 30 mg DAILY@BREAKFAST PO 10/28/24 08:00 10/29/24 09:33 30 MG Hydrocortisone 20 mg DAILY@LUNCH PO 10/28/24 12:00 10/28/24 11:53 20 MG Hydrocortisone 10 mg DAILY@DINNER PO 10/28/24 17:30 10/28/24 17:56 10 MG Folic Acid 1 mg DAILY PO 10/28/24 10:00 10/29/24 09:32 1 MG Ferrous Sulfate 325 mg TIDWM PO 10/28/24 08:00 10/29/24 09:32 325 MG Meropenem 50 ml @ 17 mls/hr Q8H IV 10/28/24 18:00 10/29/24 09:32 17 MLS/HR Pantoprazole Sodium 40 mg BID@0600,1700 PO 10/29/24 06:00 10/29/24 05:43 40 MG objective GEN: NAD. alert. ABD: incision clean and dry. ileostomy functioning well. RUPERT 30 mL serous. PATH: ischemic colitis with mucosal necrosis laboratory and microbiology Laboratory Tests 10/29/24 05:04 Test 10/29/24 05:04 Range/Units Serum Glucose 127 H 74-106 mg/dL Assessment/Plan A: 1. s/p ex lap with right colectomy POD #12 for ischemic colitis with improving WBC P: 1. improving from surgery POV. 2. dc plan per hospitalist. Dietary Evaluation Review Comments: 1. Advance TPN to meet at least 75% of estimated needs 2. If GI route is accessible, TF Vital HP @ 70ml/hr x 24hr (goal). Start @ 20ml/hr, increase 10ml/hr Q$H until goal is reached. Water flush 50ml Q6H if allowed. 3. monitor electrolyte, triglycerides, PN tolerance, body weight change, skin integrity. Expected Outcomes/Goals: To meet at least 75% estimated needs within 7 days FU 2-3 days Plan discussed with: Patient MIRIAM ARCHIBALD MD October 29, 2024 10:37
[2024-10-29] MEDS: POTASSIUM CHL 20 Meq TABLET PO ONE (12:34)
[2024-10-30] VITALS (9 sets, daily range): BP systolic 100–129; BP diastolic 65–89; PULSE 71–98; RESP 16–20; TEMP 36.8; O2SAT 92–100
[2024-10-30 06:33] LABS: Hematocrit 27.3 % (36.0-46.0); Hemoglobin 9.1 g/dL (12.2-16.2); Mean Corpuscular Hemoglobin 31.1 pg (28.0-32.0); Mean Corpuscular Hgb Conc. 33.3 g/dL (32.0-36.0); Mean Corpuscular Volume 93.4 fL (80.0-100.0); Platelet Count (auto) 261 10^3/uL (140-450); Red Blood Cells 2.93 10^6/uL (4.0-5.20); White Blood Cell 10.9 10^3/uL (4.4-10.8)
[2024-10-30 06:42] LABS: Red Cell Distribution Width 22.2 % (11.8-14.3)
[2024-10-30 06:43] LABS: Basophils % (manual) 0 (0.0-2.0); Blast Cells 0; Metamyelocytes % 0; Myelocytes % 0; Promyelocytes % 0; Reactive Lymphocytes 0
[2024-10-30 07:51] LABS: Band Neutrophils % (manual) 1; Eosinophils % (manual) 2 (0-7); Lymphocytes % (manual) 14 (10.0-50.0); Monocytes % (manual) 7 (0-12)
[2024-10-30 07:52] LABS: Anisocytosis Moderate; Platelet Estimate Adequate
--- NOTE | 2024-10-30 10:30 | DVHPN2 ---
Reviewed: Care Plan Changes from previous H/P or p: No Changes Gastrointestinal: Nausea, Vomiting Objective Vitals Vital Signs Date Time Temp Pulse Resp B/P (MAP) Pulse Ox O2 Delivery O2 Flow Rate FiO2 10/30/24 08:49 98.0 98 20 105/67 (80) 92 98.0 10/30/24 07:06 Room Air* 0 21 Intake/Output Intake and Output 10/30/24 07:00 Intake Total 900 ml Output Total 4 ml Balance 896 ml Intake Oral 600 ml IV Total 300 ml Output Urine Total 4 ml General Appearance: Alert, Oriented X3, Cooperative, No acute distress, mild distress, moderate distress, severe distress, Other Lungs: Clear to auscultation, Normal air movement, Other Cardiovascular: Regular rate, Normal S1, Normal S2, No murmurs, Gallops, Rubs, Other Abdomen: Normal bowel sounds, Soft, No tenderness, No hepatospenomegaly, No masses, Other Medications Current Medications Medications Dose Ordered Sig/Kelvin Route Start Time Stop Time Status Last Admin Dose Admin Vancomycin HCl 200 ml @ 200 mls/hr Q12HR IV 10/16/24 22:00 UNV Enoxaparin Sodium 40 mg DAILY SC 10/17/24 10:00 UNV Metoclopramide HCl 5 mg Q8HPRN PRN IV 10/21/24 11:00 10/23/24 21:07 5 MG Methylnaltrexone [place] 8 mg Q2D SC 10/21/24 17:00 10/27/24 17:10 8 MG Vancomycin HCl 0 ml @ 0 mls/hr UD IV 10/24/24 10:30 Sodium Chloride 10 ml QSHIFT@10,22 IV 10/24/24 22:00 10/30/24 10:09 10 ML Lorazepam 1 mg Q4HP PRN IV 10/25/24 16:00 10/30/24 05:42 1 MG Albuterol 2.5 mg Q8HR NEB 10/26/24 14:00 10/30/24 07:06 2.5 MG Sucralfate 1 gm BID@0600,2200 PO 10/26/24 22:00 10/30/24 05:42 1 GM Vancomycin HCl 250 ml @ 200 mls/hr Q12H IV 10/27/24 03:00 10/30/24 03:05 200 MLS/HR Amitriptyline HCl 10 mg HS PO 10/27/24 22:00 10/29/24 22:15 10 MG Hydromorphone HCl 0.5 mg Q4HPRN PRN IV 10/26/24 22:45 10/30/24 04:55 0.5 MG Ipratropium [place] 0.5 mg Q8HR NEB 10/27/24 14:00 10/30/24 07:06 0.5 MG Nystatin 5 ml QID MT 10/27/24 18:00 10/30/24 05:42 5 ML Multivitamins/ Minerals 1 tab DAILY PO 10/28/24 10:00 10/30/24 09:57 1 TAB Hydrocortisone 30 mg DAILY@BREAKFAST PO 10/28/24 08:00 10/30/24 09:58 30 MG Hydrocortisone 20 mg DAILY@LUNCH PO 10/28/24 12:00 10/29/24 12:33 20 MG Hydrocortisone 10 mg DAILY@DINNER PO 10/28/24 17:30 10/29/24 18:01 10 MG Folic Acid 1 mg DAILY PO 10/28/24 10:00 10/30/24 09:58 1 MG Ferrous Sulfate 325 mg TIDWM PO 10/28/24 08:00 10/30/24 09:58 325 MG Meropenem 50 ml @ 17 mls/hr Q8H IV 10/28/24 18:00 10/30/24 09:57 17 MLS/HR Pantoprazole Sodium 40 mg BID@0600,1700 PO 10/29/24 06:00 10/30/24 05:42 40 MG Laboratory Results Laboratory Tests 10/29/24 05:04 10/30/24 06:13 Urinalysis Test 10/17/24 01:25 10/21/24 12:25 Urine Hyaline Casts Few /lpf (0 - 2) Urine Creatinine 87.60 mg/dL (30.0-125.0) Urine Sodium 35 mmol/L (40-220) L Urine Total Protein 114.1 mg/dL (1-14) H Urine Test Negative (Negative) Urine Color Light-yellow (Yellow) Urine Clarity Turbid (Clear) H Urine pH 5.5 (5.0-9.0) Urine Specific [place] 1.033 (1.001-1.035) Urine Protein Trace (Negative) H Urine Ketones Negative (Negative) Urine Blood Trace /uL (Negative) H Urine Nitrite Negative (Negative) Urine Bilirubin Negative (Negative) Urine Urobilinogen Normal mg/dL (Negative) Urine Leukocyte Esterase Negative /uL (Negative) Urine RBC 8 /hpf (0 - 4) Urine Microscopic WBC 4 /HPF (0-5) Urine Squamous Epithelial Cells None seen /hpf (<5) Urine Uric Acid Crystals Mod /hpf (None Seen) Urine Bacteria None seen /hpf (None Seen) Urine Mucus Few (None Seen) Urine Glucose Normal mg/dL (Normal) Microbiology Microbiology Date/Time Source Procedure Growth Status 10/26/24 16:36 Stool Stool Culture - Final Complete 10/26/24 16:36 Stool Shiga Toxin I & II - Final Complete 10/24/24 11:20 Blood Blood Culture - Final NO GROWTH AFTER 5 DAYS OF INCUBATION. 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 Is on high dose IV hydromorphone. Patient has high-risk of presenting opiate withdrawal syndrome. Indicated Amitriptyline for neuropathic pain to wean off from opioids Patient presented nausea and abdominal pain probably secondary to opiate adverse effect. Indicated methylnaltrexone Currently on hydrocortisone 30 mg/20 mg/10 mg daily. Planning to taper down to her normal regimen as outpatient. Should decrease by 5 mg per dose per week. 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 Planning on initiating clear liquid diet once cleared by surgery Completed abdomen and pelvis CT with p.o. contrast which ruled out perforation, continues with pancreatitis which has improved from previous imaging. Does present colitis which has not been resulted. [id number] left pleural effusion Probable cause of GI bleed could be esophagitis. Patient was on NSAIDs. Have discontinued NSAIDs at this point. On pantoprazole 40 mg IV b.i.d.. Consulted GI for GI bleed: Ordered complementary work up. Will evaluate need for endoscopy Genitourinary/Nephrology MORA hemodynamically mediated (VMN) Metabolic acidosis with increased AG (lactic acidosis) - Improved Oral Thrush Required IV fluids, boluses and maintenance. Multiple transfusion of blood products Indicated Nystatin Infectious Disease Septic shock secondary to toxic megacolon/colonic ischemia URI due to Influenza Awaiting results of culture Currently under empiric IV antibiotics (Meropenem and Vancomycin). Restarted vancomycin due to increased leukocytosis to cover Gram-positive cocci. No Oseltamivir, since it is PO. Planning to discharge with Levofloxacin. Endocrine Ray's disease Hypertriglyceridemia Questionable Hypothyroidism Dyslipidemia Received Hydrocortisone 200 mg once and maintenance 50 mg q6hs. Switched Methylprednisolone 40 mg IV bid to Hydrocortisone PO 30mg/20mg/10mg Avoid propofol due to hypertriglyceridemia TSH within normal limits, no Levothyroxine in Med reconcile. Will hold on T4 treatment Hematology Severe normocytic Anemia with iron deficiency Acute blood loss Thrombocytopenia (questionable HIT I) Patient require multiple blood product transfusion. Presented new episode of GI bleed (4 PRBCs, one fresh frozen plasma, cryoprecipitate and platelets) Musculoskeletal Chronic back pain Neuropathic pain post Guillain-[place] syndrome Ruled out pelvic fracture Currently on fentanyl drip. Avoid opiate withdrawal Due to recent mechanical fall, obtain pelvic x-ray which ruled out acute fracture Continue with IV opioids. Patient does not tolerate gabapentin or pregabalin. May benefit from amitriptyline once patient can tolerate p.o. diet. Ordered physical therapy evaluation. Nutrition: Mechanical soft Prophylaxis: PUD (pantoprazole) and DVT (SCDs) Lines 10/17/2024 Avitia DC 10/26/2024 10/17/2024 ET extubated 10/19/2024 10/17/2024 Right IJ CVC removed 10/24/2024 10/24/2024 PICC line 10/17/2024 RUPERT drain removed 10/28/2024 '10/29/2024: improving, still has elevated WBC discussed with pt Plan discussed with: Patient My Orders Orders - DEQUAN CHRISTOPHER DO Procedure Category Date Status Time * Compositor Apprentice CONS 10/29/24 Transmitted Consult Date of Service: October 29, 2024 Billing Provider: DEQUAN CHRISTOPHER DO Common Visit Codes: [id number] INP/OBS CARE(HIGH) DEQUAN CHRISTOPHER DO Oct 30, 2024 10:30
--- NOTE | 2024-10-30 10:33 | DVHDS2 ---
Discharge Summary Date of Admission October 16, 2024 at 20:35 Date of Discharge: Oct 30, 2024 Labs/Diagnostic Data: Laboratory Results Test 10/30/24 06:13 10/29/24 13:58 10/29/24 05:04 10/27/24 17:32 White Blood Count 10.9 10^3/uL (4.4-10.8) Red Blood Count 2.93 10^6/uL (4.0-5.20) Hemoglobin 9.1 g/dL (12.2-16.2) Hematocrit 27.3 % (36.0-46.0) Mean Corpuscular Volume 93.4 fL (80.0-100.0) Mean Corpuscular Hemoglobin 31.1 pg (28.0-32.0) Mean Corpuscular Hemoglobin Concent 33.3 g/dL (32.0-36.0) Red Cell Distribution Width 22.2 % (11.8-14.3) Platelet Count 261 10^3/uL (140-450) Mean Platelet Volume 7.8 fL (6.9-10.8) Neutrophils (%) (Auto) % (37.0-80.0) Lymphocytes (%) (Auto) % (10.0-50.0) Monocytes (%) (Auto) % (0.0-12.0) Basophils (%) (Auto) % (0.0-2.0) Neutrophils # (Auto) 10 ^3/uL (1.6-8.6) Lymphocytes # (Auto) 10 ^3/uL (0.4-5.4) Monocytes # (Auto) 10 ^3/uL (0-1.3) Differential Total Cells Counted 100.0 (100) Neutrophils % (Manual) 76 (37.0-80.0) Band Neutrophils % (Manual) 1 Lymphocytes % (Manual) 14 (10.0-50.0) Monocytes % (Manual) 7 (0-12) Eosinophils % (Manual) 2 (0-7) Basophils % (Manual) 0 (0.0-2.0) Metamyelocytes % (manual) 0 Myelocytes % (Manual) 0 Promyelocytes % (Manual) 0 Blast Cells % (Manual) 0 Reactive Lymphocytes 0 Platelet Estimate Adequate Anisocytosis (manual) Moderate Creatinine 0.45 mg/dL (0.550-1.02) Glomerular Filtration Rate Calc 125 mL/min (>90) Vancomycin Level Trough 16.3 ug/mL (5-10) Polychromasia Slight Sodium Level 142 mmol/L (136-145) Potassium Level 2.5 mmol/L (3.5-5.1) Chloride Level 109 mmol/L (98-107) Carbon Dioxide Level 24 mmol/L (20-31) Anion Gap 9 (5-15) Blood Urea Nitrogen < 5 mg/dL (9-23) BUN/Creatinine Ratio 10.2 (10.0-20.0) Serum Glucose 127 mg/dL (74-106) Calcium Level 9.2 mg/dL (8.7-10.4) Phosphorus Level 3.9 mg/dL (2.4-5.1) Magnesium Level 1.9 mg/dL (1.6-2.6) Total Bilirubin 0.3 mg/dL (0.2-1.0) Aspartate Amino Transferase (AST) 17 U/L (13-40) Alanine Aminotransferase (ALT) 16 U/L (7-40) Alkaline Phosphatase 101 U/L (46-116) Total Protein 5.3 g/dL (5.7-8.2) Albumin 3.1 g/dL (3.2-4.8) POC Glucose 227 mg/dl (70-106) Test 10/26/24 05:26 10/25/24 18:00 10/25/24 09:05 10/25/24 05:07 Triglycerides Level 201 mg/dL (< 150) Stool Occult Blood Positive (Negative) Stool Occult Blood Sample #3 (Negative) Stool for White Cells None seen Lipase 26 U/L (12-53) Prothrombin Time 11.4 sec (9.3-11.8) Prothrombin Time INR 1.08 (0.9-1.15) Activated Partial Thromboplast Time 25.6 SEC (24.5-34.5) Test 10/23/24 05:41 10/22/24 05:42 10/21/24 12:25 10/19/24 13:12 Eosinophils (%) (Auto) 0.6 % (0.0-7.0) Eosinophils # (Auto) 0.2 10 ^3/uL (0-0.8) Basophils # (Auto) 0.1 10 ^3/uL (0-0.2) Nucleated Red Blood Cells 0.3 % Stomatocytes Few Urine Color Light-yellow (Yellow) Urine Clarity Turbid (Clear) Urine pH 5.5 (5.0-9.0) Urine Specific [place] 1.033 (1.001-1.035) Urine Protein Trace (Negative) Urine Ketones Negative (Negative) Urine Blood Trace /uL (Negative) Urine Nitrite Negative (Negative) Urine Bilirubin Negative (Negative) Urine Urobilinogen Normal mg/dL (Negative) Urine Leukocyte Esterase Negative /uL (Negative) Urine RBC 8 /hpf (0 - 4) Urine Microscopic WBC 4 /HPF (0-5) Urine Squamous Epithelial Cells None seen /hpf (<5) Urine Uric Acid Crystals Mod /hpf (None Seen) Urine Bacteria None seen /hpf (None Seen) Urine Mucus Few (None Seen) Urine Glucose Normal mg/dL (Normal) Blood Gas Specimen Type Arterial Blood Gas Sample Site Left radial Blood Gas Patient Temperature 37.0 Arterial Blood Date Drawn [id number] Arterial Blood pH 7.444 (7.350-7.450) Arterial Blood Partial Pressure CO2 37.3 mmHg (32.0-45.0) Arterial Blood Partial Pressure O2 63.1 mmHg (83.0-108.0) Arterial Blood HCO3 25.0 mmol/L (21.0-28.0) Arterial Blood Oxygen Saturation 92.1 % (94.0-98.0) Arterial Blood Base Excess 1.1 mmol/L (-2.0-3.0) Arterial Blood Oxyhemoglobin 91.5 % (94.0-98.0) Arterial Blood Carboxyhemoglobin 0.5 % (0.5-1.5) Arterial Blood Methemoglobin 0.1 % (0.0-1.5) Eduardo Test Modified Blood Gas Total Hemoglobin 11.70 g/dL (12.0-16.0) Blood Gas Modality Vent - cpap Blood Gas Spontaneous Rate 12 FiO2 % 30.0 Blood Gas Spontaneous Tidal Volume 600 Blood Gas Pressure Support 8 Blood Gas PEEP or CPAP 5.0 Specimen Drawn By Jens hernandez Test 10/19/24 06:48 10/18/24 06:00 10/17/24 17:00 10/17/24 08:05 Blood Gas Set Respiration Rate 18.0 Blood Gas Tidal Volume 450.0 Cholesterol Level 106 mg/dL (< 200) LDL Cholesterol 24 mg/dL (< 100) HDL Cholesterol < 5 mg/dL (40-59) Lactic Acid Level 1.1 mmol/L (0.4-2.0) Ammonia < 10 umol/L (11-32) Vitamin B12 Level 3140 pg/mL (211-911) Vitamin D 25-Hydroxy 27.7 ng/mL (30.0-100) Thyroid Stimulating Hormone (TSH) 0.96 uIU/mL (0.55-4.78) Blood Gas Critical Value Read Back Yes Blood Gas Notified Whom Dr. rojo Blood Gas Notified Time [id number] Blood Gas Notified By Test 10/17/24 05:47 10/17/24 05:26 10/17/24 01:25 10/16/24 20:48 Hemoglobin A1c 5.3 % A1C (<5.7) Carcinoembryonic Antigen 3.55 ng/mL (<=5.0) Random Vancomycin Level 9.4 ug/mL (5-10) Influenza Type A Antigen Negative (Negative) Influenza Type B Antigen Positive (Negative) SARS-CoV-2 Antigen (Rapid) Negative (NEGATIVE) Urine Hyaline Casts Few /lpf (0 - 2) Urine Creatinine 87.60 mg/dL (30.0-125.0) Urine Sodium 35 mmol/L (40-220) Urine Total Protein 114.1 mg/dL (1-14) Urine Test Negative (Negative) Urine Opiates Screen Pos (NEGATIVE) Urine Fentanyl Screen Pos (NEGATIVE) Urine Barbiturates Screen Neg (NEGATIVE) Urine Phencyclidine Screen Neg (NEGATIVE) Urine Amphetamines Screen Neg (NEGATIVE) Urine Benzodiazepines Screen Neg (NEGATIVE) Urine Cocaine Screen Neg (NEGATIVE) Urine Cannabinoids Screen Neg (NEGATIVE) Iron Level 9 ug/dL (50-170) Total Iron Binding Capacity 303 ug/dL (250-425) Percent Iron Saturation 3.0 % (15-50) Ferritin 127.5 ng/mL (10-291) Gamma Glutamyl Transpeptidase 1044 U/L (<38) Troponin I High Sensitivity 134 ng/L (</=34) C-Reactive Protein High Sensitivity 14.06 mg/dL (<1.0) Acetaminophen Level 10.0 UG/ML (10.0-20.0) Test 10/16/24 14:43 Hypochromasia (manual) Slight B-Type Natriuretic Peptide 7.91 pg/mL (0-100) Beta-Hydroxybutyric Acid 0.197 mmol/L (< 0.4) Beta HCG, Quantitative 1.3 mIU/mL (1.5-4.2) Plasma/Serum Blood Alcohol < 3.0 mg/dL (<10) Hepatitis A IgM Antibody Negative Hepatitis B Surface Antigen Negative (Negative) Hepatitis B Core IgM Antibody Negative (Negative) Hepatitis C Antibody Negative (Negative) Other Laboratory Tests 10/30/24 06:13 10/29/24 05:04 Brief Hx & Hospital Course: Neurology Metabolic encephalopathy due to septic shock Sedoanalgesia - Discontinued Opioid Dependence Neuropathic pain (gabapentin and pregabalin intolerance) 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 Is on high dose IV hydromorphone. Patient has high-risk of presenting opiate withdrawal syndrome. Indicated Amitriptyline for neuropathic pain to wean off from opioids Patient presented nausea and abdominal pain probably secondary to opiate adverse effect. Indicated methylnaltrexone Currently on hydrocortisone 30 mg/20 mg/10 mg daily. Planning to taper down to her normal regimen as outpatient. Should decrease by 5 mg per dose per week. 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 Planning on initiating clear liquid diet once cleared by surgery Completed abdomen and pelvis CT with p.o. contrast which ruled out perforation, continues with pancreatitis which has improved from previous imaging. Does present colitis which has not been resulted. [id number] left pleural effusion Probable cause of GI bleed could be esophagitis. Patient was on NSAIDs. Have discontinued NSAIDs at this point. On pantoprazole 40 mg IV b.i.d.. Consulted GI for GI bleed: Ordered complementary work up. Will evaluate need for endoscopy Genitourinary/Nephrology MORA hemodynamically mediated (VMN) Metabolic acidosis with increased AG (lactic acidosis) - Improved Oral Thrush Required IV fluids, boluses and maintenance. Multiple transfusion of blood products Indicated Nystatin Infectious Disease Septic shock secondary to toxic megacolon/colonic ischemia URI due to Influenza Awaiting results of culture Currently under empiric IV antibiotics (Meropenem and Vancomycin). Restarted vancomycin due to increased leukocytosis to cover Gram-positive cocci. No Oseltamivir, since it is PO. Planning to discharge with Levofloxacin. Endocrine Ray's disease Hypertriglyceridemia Questionable Hypothyroidism Dyslipidemia Received Hydrocortisone 200 mg once and maintenance 50 mg q6hs. Switched Methylprednisolone 40 mg IV bid to Hydrocortisone PO 30mg/20mg/10mg Avoid propofol due to hypertriglyceridemia TSH within normal limits, no Levothyroxine in Med reconcile. Will hold on T4 treatment Hematology Severe normocytic Anemia with iron deficiency Acute blood loss Thrombocytopenia (questionable HIT I) Patient require multiple blood product transfusion. 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 Avoid opiate withdrawal Due to recent mechanical fall, obtain pelvic x-ray which ruled out acute fracture Continue with IV opioids. Patient does not tolerate gabapentin or pregabalin. May benefit from amitriptyline once patient can tolerate p.o. diet. Ordered physical therapy evaluation. Nutrition: Mechanical soft Prophylaxis: PUD (pantoprazole) and DVT (SCDs) Lines 10/17/2024 Avitia DC 10/26/2024 10/17/2024 ET extubated 10/19/2024 10/17/2024 Right IJ CVC removed 10/24/2024 10/24/2024 PICC line 10/17/2024 RUPERT drain removed 10/28/2024 '10/29/2024: improving, still has elevated WBC discussed with pt 10/30/2024: discharged to home and to continue with oral Abx Condition at Discharge: Critical Final Diagnosis/Problems List 1. Septic shock from toxic megacolon Discharge Disposition: Home Discharge Instruct/Medications Diet: Cardiac 2g Na,low cholest Activity: No Restrictions, As Tolerated Discharge Statement: "Patient was advised to return to the ER or call 911 if any headaches, dizziness, shortness of breath, chest pain, abdominal pain, bleeding, fevers, or worsening of medical condition. Patient was counseled about treatment plan, medications, possible side effects, patientverbalized understanding. All questions were answered to the best of my ability. This discharge took greater then 30 minutes in planning, reviewing documentation, counseling the patient, and discussing with other team members." ASSESSMENT ASSESSMENT Assessment 1. Septic shock from toxic megacolon Date of Service: Oct 30, 2024 Billing Provider: DEQUAN CHRISTOPHER DO Common Visit Codes: [id number] DISCH DAY >30min DEQUAN CHRISTOPHER DO Oct 30, 2024 10:33
[2024-10-30 10:51] LABS: Sodium 144 mmol/L (136-145)
[2024-10-30 10:52] LABS: Anion Gap 10 (5-15); Calcium 9.3 mg/dL (8.7-10.4); Carbon Dioxide 23 mmol/L (20-31)
[2024-10-30 10:57] LABS: BUN/Creatinine Ratio 11.1 (10.0-20.0); Blood Urea Nitrogen 5 mg/dL (9-23); Chloride 111 mmol/L (98-107); Glucose 83 mg/dL (74-106); Potassium 3.1 mmol/L (3.5-5.1)
--- NOTE | 2024-10-30 14:33 | DVHPN2 ---
Progress Note - Dictate Date Seen: Oct 30, 2024 Medical Necessity Reason Pt with a Central, PICC or Fol: Yes The following are medically ne: PICC Line, Avitia Catheter vital signs Vital Sign Date Time Temp Pulse Resp B/P (MAP) Pulse Ox O2 Delivery O2 Flow Rate FiO2 10/30/24 14:18 77 18 100 10/30/24 14:12 Room Air* 0 21 10/30/24 14:09 36.8 10/30/24 12:43 105/67 (80) Total Intake and Output 10/29/24 10/29/24 10/30/24 15:00 23:00 07:00 Intake Total 50 ml 250 ml 600 ml Output Total 4 ml Balance 50 ml 250 ml 596 ml medications Current Medications Medications Dose Ordered Sig/Kelvin Route Start Time Stop Time Status Last Admin Dose Admin Vancomycin HCl 200 ml @ 200 mls/hr Q12HR IV 10/16/24 22:00 UNV Enoxaparin Sodium 40 mg DAILY SC 10/17/24 10:00 UNV Metoclopramide HCl 5 mg Q8HPRN PRN IV 10/21/24 11:00 10/23/24 21:07 5 MG Methylnaltrexone [place] 8 mg Q2D SC 10/21/24 17:00 10/27/24 17:10 8 MG Vancomycin HCl 0 ml @ 0 mls/hr UD IV 10/24/24 10:30 Sodium Chloride 10 ml QSHIFT@10,22 IV 10/24/24 22:00 10/30/24 10:09 10 ML Lorazepam 1 mg Q4HP PRN IV 10/25/24 16:00 10/30/24 13:19 1 MG Albuterol 2.5 mg Q8HR NEB 10/26/24 14:00 10/30/24 14:12 2.5 MG Sucralfate 1 gm BID@0600,2200 PO 10/26/24 22:00 10/30/24 05:42 1 GM Vancomycin HCl 250 ml @ 200 mls/hr Q12H IV 10/27/24 03:00 10/30/24 03:05 200 MLS/HR Amitriptyline HCl 10 mg HS PO 10/27/24 22:00 10/29/24 22:15 10 MG Hydromorphone HCl 0.5 mg Q4HPRN PRN IV 10/26/24:45 10/30/24 11:47 0.5 MG Ipratropium [place] 0.5 mg Q8HR NEB 10/27/24 14:00 10/30/24 14:11 0.5 MG Nystatin 5 ml QID MT 10/27/24 18:00 10/30/24 05:42 5 ML Multivitamins/ Minerals 1 tab DAILY PO 10/28/24 10:00 10/30/24 09:57 1 TAB Hydrocortisone 30 mg DAILY@BREAKFAST PO 10/28/24 08:00 10/30/24 09:58 30 MG Hydrocortisone 20 mg DAILY@LUNCH PO 10/28/24 12:00 10/30/24 13:19 20 MG Hydrocortisone 10 mg DAILY@DINNER PO 10/28/24 17:30 10/29/24 18:01 10 MG Folic Acid 1 mg DAILY PO 10/28/24 10:00 10/30/24 09:58 1 MG Ferrous Sulfate 325 mg TIDWM PO 10/28/24 08:00 10/30/24 13:18 325 MG Meropenem 50 ml @ 17 mls/hr Q8H IV 10/28/24 18:00 10/30/24 09:57 17 MLS/HR Pantoprazole Sodium 40 mg BID@0600,1700 PO 10/29/24 06:00 10/30/24 05:42 40 MG laboratory and microbiology Laboratory Tests 10/30/24 06:13 Test 10/30/24 06:13 Range/Units Serum Glucose 83 74-106 mg/dL Assessment/Plan Impression Acute hypoxemic respiratory failure Metabolic encephalopathy Hx of Guillain-[place] NSTEMI MORA Patient seen and examined Events Labs and imaging reviewed Management Supplemental oxygen Titrate to maintain sats 90% or above Incentive spirometry Continue antibiotics F/u cultures Bronchodilators Monitor renal function Monitor electrolytes Supplement as needed DVT prophylaxis ok to dc Dietary Evaluation Review Comments: 1. Advance TPN to meet at least 75% of estimated needs 2. If GI route is accessible, TF Vital HP @ 70ml/hr x 24hr (goal). Start @ 20ml/hr, increase 10ml/hr Q$H until goal is reached. Water flush 50ml Q6H if allowed. 3. monitor electrolyte, triglycerides, PN tolerance, body weight change, skin integrity. Expected Outcomes/Goals: To meet at least 75% estimated needs within 7 days FU 2-3 days Plan discussed with: Other (pt) MICHAEL BOLTON MD Oct 30, 2024 14:33
== END 2024-10-30 16:45 | disposition home health service (06) | DRG 853 ==
LOC: EDBD 14:14 → ER 14:21 → OVERFLOW 20:35 → CATH ICU 10-17 05:30 → ICU WEST 10-17 16:53 → TELE-EAST 10-20 13:15
PROVIDERS: ADMIT Internal Medicine Pulmonary Disease; ATTEND Internal Medicine
PROC: 0D1B0Z4 Bypass Ileum to Cutaneous, Open Approach (ICD-10-PCS; 2024-10-17)
PROC: 30233N1 Transfusion of Nonautologous Red Blood Cells into Peripheral Vein, Percutaneous Approach (ICD-10-PCS; 2024-10-17)
PROC: 02HV33Z Insertion of Infusion Device into Superior Vena Cava, Percutaneous Approach (ICD-10-PCS; 2024-10-17)
PROC: B548ZZA Ultrasonography of Superior Vena Cava, Guidance (ICD-10-PCS; 2024-10-17)
PROC: 30233K1 Transfusion of Nonautologous Frozen Plasma into Peripheral Vein, Percutaneous Approach (ICD-10-PCS; 2024-10-17)
PROC: 30233R1 Transfusion of Nonautologous Platelets into Peripheral Vein, Percutaneous Approach (ICD-10-PCS; 2024-10-17)
PROC: 30233M1 Transfusion of Nonautologous Plasma Cryoprecipitate into Peripheral Vein, Percutaneous Approach (ICD-10-PCS; 2024-10-17)
PROC: 0BH17EZ Insertion of Endotracheal Airway into Trachea, Via Natural or Artificial Opening (ICD-10-PCS; 2024-10-17)
PROC: 5A1945Z Respiratory Ventilation, 24-96 Consecutive Hours (ICD-10-PCS; 2024-10-17)
PROC: 0DTF0ZZ Resection of Right Large Intestine, Open Approach (ICD-10-PCS; principal; 2024-10-17 02:13)
PROC: 02HV33Z Insertion of Infusion Device into Superior Vena Cava, Percutaneous Approach (ICD-10-PCS; 2024-10-24)
PROC: B548ZZA Ultrasonography of Superior Vena Cava, Guidance (ICD-10-PCS; 2024-10-24)
DX: A41.89 Other specified sepsis (principal); G93.41 Metabolic encephalopathy; I21.A1 Myocardial infarction type 2; J96.00 Acute respiratory failure, unspecified whether with hypoxia or hypercapnia; K85.90 Acute pancreatitis without necrosis or infection, unspecified; N17.0 Acute kidney failure with tubular necrosis; J11.00 Influenza due to unidentified influenza virus with unspecified type of pneumonia; I50.33 Acute on chronic diastolic (congestive) heart failure; R65.21 Severe sepsis with septic shock; K55.9 Vascular disorder of intestine, unspecified; K59.31 Toxic megacolon; E87.20 Acidosis, unspecified; E27.1 Primary adrenocortical insufficiency; D62 Acute posthemorrhagic anemia; G61.0 Guillain-Barre syndrome; F11.20 Opioid dependence, uncomplicated; B37.0 Candidal stomatitis; K70.10 Alcoholic hepatitis without ascites; R74.01 Elevation of levels of liver transaminase levels; E83.51 Hypocalcemia; F10.10 Alcohol abuse, uncomplicated; D69.6 Thrombocytopenia, unspecified; Z20.822 Contact with and (suspected) exposure to COVID-19; E78.5 Hyperlipidemia, unspecified; J45.909 Unspecified asthma, uncomplicated; Y92.238 Other place in hospital as the place of occurrence of the external cause; T40.2X5A Adverse effect of other opioids, initial encounter; E78.1 Pure hyperglyceridemia; Y90.9 Presence of alcohol in blood, level not specified; E03.9 Hypothyroidism, unspecified; I11.0 Hypertensive heart disease with heart failure; D50.9 Iron deficiency anemia, unspecified; G89.29 Other chronic pain; Z79.52 Long term (current) use of systemic steroids; Z83.3 Family history of diabetes mellitus
CPT/HCPCS: 36415; 36556; 36569; 36600; 71045; 71250; 72170; 74018; 74176; 76700; 76937; 80048; 80053; 80061; 80074; 80202; 80307; 80320; 80329; 81001; 81025; 82010; 82140; 82270; 82306; 82378; 82565; 82570; 82607; 82728; 82805; 82962; 82977; 83036; 83540; 83550; 83605; 83690; 83735; 83880; 84100; 84156; 84300; 84443; 84450; 84460; 84478; 84484; 84702; 85007; 85014; 85018; 85025; 85027; 85048; 85610; 85730; 86141; 86850; 86900; 86901; 86920; 87040; 87045; 87070; 87075; 87081; 87086; 87205; 87426; 87427; 87804; 93005; 93306; 94002; 94003; 94640; 96365; 96372; 96375; 97110; 97116; 97163; 97530; 99291; G0378; J0131; J1756; J1815; J1885; J2003; J2185; J2212; J2250; J2405; J2470; J2543; J3430; J3480; J3490; J7060; P9047

== ENCOUNTER 2025-04-21 08:22 | Inpatient (IN) | payer BC ==
[~2025-04-21] VITALS: Ht 162.6 cm; Wt 80.8 kg
[~2025-04-21 08:22] MED LIST: AMIT-399 PO; FER325T PO; FOLI-119 PO; HYDR10T PO; IPR002IS NEB; LEVO500T91 PO; METH12IN SC; MULT-351 PO; NYS5LQ MT; PANT40T PO; SUCR1SUS26 PO
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
[2025-04-21 09:18] LABS: Hemoglobin 10.1 g/dL (12.2-16.2); Nucleated Red Blood Cells % 0.0 %
[2025-04-21 09:20] LABS: Hematocrit 30.3 % (36.0-46.0); Mean Corpuscular Hemoglobin 36.1 pg (28.0-32.0); Mean Corpuscular Volume 108.3 fL (80.0-100.0)
[2025-04-21 09:23] LABS: Chloride 102 mmol/L (98-107); Sodium 137 mmol/L (136-145)
[2025-04-21 09:24] LABS: Anion Gap 12 (5-15); Carbon Dioxide 23 mmol/L (20-31)
[2025-04-21 09:25] LABS: Calcium 8.1 mg/dL (8.7-10.4); Potassium 3.2 mmol/L (3.5-5.1)
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
[2025-04-21 09:29] LABS: BUN/Creatinine Ratio 12.5 (10.0-20.0); Blood Urea Nitrogen 13 mg/dL (9-23)
[2025-04-21 09:38] LABS: Glucose 123 mg/dL (74-106)
[2025-04-21] MEDS: ONDANSETRON HCL 4 MG/2 ML VIAL IV ONE (10:39)
[2025-04-21] MEDS: HYDROcodone-ACET 5/325MG TAB PO ONE (10:40)
[2025-04-21] MEDS: MORPHINE SULFATE 4 MG/ML SYR/VIAL IV ONE (11:03)
[2025-04-21] MEDS: SODIUM CHLORIDE 0.9% 1,000 ML IV ONE ×4 (11:03→18:30)
[2025-04-21] MEDS: NEOMYCIN-BACITRACIN-POLYM UNITDOSE PKG TOP OINT TOP ONE (12:10)
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
[2025-04-21] MEDS: KETAMINE 50mg/ML 10ml Vial 10 ML ONE (15:02)
[2025-04-21] MEDS: KETAMINE 50mg/ML 10ml Vial (500mg/10ml) IV ONE (15:02)
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
[2025-04-21] MEDS: CEFEPIME 2GM/50ML NS 50 ML IV ONE ×2 (16:30→16:32)
[2025-04-21] MEDS: HYDROCORTISONE 10 MG TAB ONE (17:22)
[2025-04-21] MEDS: HYDROCORTISONE 10 MG TAB PO ONE (17:25)
[2025-04-21] MEDS: AZITHROMYCIN 500MG/250ML 250 ML IV ONE ×2 (17:36→17:38)
[2025-04-21] MEDS ORDERED: VANCOMYCIN PER PHARMACY 0 MG IV SCH (18:30)
[2025-04-21] MEDS: LACTATED RINGER'S 1,000 ML IV SCH (18:30)
[2025-04-21 19:30] VITALS: PULSE 111; RESP 18; O2SAT 97
[2025-04-21] MEDS ORDERED: HYDROmorphone HCL 2 MG/ML VL/or syr IV ONE (19:30)
[2025-04-21 20:08] LABS: Hematocrit 28.6 % (36.0-46.0); Hemoglobin 9.4 g/dL (12.2-16.2); Mean Corpuscular Hemoglobin 36.1 pg (28.0-32.0); Mean Corpuscular Volume 110.3 fL (80.0-100.0); Nucleated Red Blood Cells % 0.0 %
[2025-04-21] MEDS: HYDROCORTISONE SOD SUCC 100 MG/2ML INJ VIAL IV ONE (20:13)
[2025-04-21 20:17] LABS: Alanine Aminotransferase 34 U/L (7-40); Anion Gap 10 (5-15); BUN/Creatinine Ratio 19.1 (10.0-20.0); Blood Urea Nitrogen 13 mg/dL (9-23); Carbon Dioxide 23 mmol/L (20-31); Glucose 101 mg/dL (74-106); Magnesium 1.8 mg/dL (1.6-2.6); Potassium 3.7 mmol/L (3.5-5.1); Sodium 144 mmol/L (136-145)
[2025-04-21 20:19] LABS: Albumin 2.2 g/dL (3.2-4.8); Alkaline Phosphatase 177 U/L (46-116); Bilirubin, Total 1.8 mg/dL (0.2-1.0); Calcium 7.1 mg/dL (8.7-10.4); Chloride 111 mmol/L (98-107); Total Protein 4.9 g/dL (5.7-8.2)
[2025-04-21 20:20] LABS: Lipase 10 U/L (12-53)
[2025-04-21 20:23] LABS: Urine Protein, UAD Negative (Negative)
[2025-04-21 20:26] LABS: Cannabinoid Screen, Urine Pos (NEGATIVE)
[2025-04-21 20:27] LABS: Amphetamine Screen, Urine Neg (NEGATIVE); Barbiturate Scree,Urine Neg (NEGATIVE); Benzodiazephine Screen, Urine Neg (NEGATIVE); Cocaine Screen, Urine Neg (NEGATIVE); Opiate Scree,Urine Pos (NEGATIVE); Phencyclidine Screen, Urine Neg (NEGATIVE)
[2025-04-21] MEDS: HYDROCORTISONE SOD SUCC 100 MG/2ML INJ VIAL ONE (20:45)
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
[2025-04-21] MEDS: HYDROmorphone HCL 2 MG/ML VL/or syr IV ONE (20:59)
[2025-04-21] MEDS: PANTOPRAZOLE 40 MG/10 ML VIAL INJ IV ONE (21:01)
[2025-04-21] MEDS: POTASSIUM CHL 20 Meq TABLET PO ONE ×2 (21:02→21:17)
[2025-04-21] MEDS: CLINDAMYCIN 900MG IV 50 ML IV ONE (21:09)
[2025-04-21] MEDS: CALCIUM GLUC 1,000mg/50ml-NS 50 ML IV ONE (21:14)
[2025-04-21] MEDS: VANCOMYCIN 1.5GM/250ML IV ONE (21:31)
[2025-04-21] MEDS: ALBUMIN 25% 100 ML IV ONE (23:10)
[2025-04-21 23:47] VITALS: BP 126/72; PULSE 80; RESP 18; TEMP 97.8; O2SAT 93
[2025-04-22] VITALS (9 sets, daily range): BP systolic 92–145; BP diastolic 65–87; PULSE 78–99; RESP 16–18; TEMP 97.6–98.4; O2SAT 91–97
[2025-04-22] MEDS: HYDROCORTISONE SOD SUCC 100 MG/2ML INJ VIAL IV SCH
[2025-04-22 01:12] LABS: Hematocrit 26.6 % (36.0-46.0); Hemoglobin 8.7 g/dL (12.2-16.2)
[2025-04-22] MEDS: KETOROLAC TROMETH 30 MG/ML 1ML VIAL IV ONE (02:27)
[2025-04-22] MEDS: HYDROcodone-ACET 5/325MG TAB PO PRN (04:22)
[2025-04-22 07:45] LABS: Hematocrit 21.9 % (36.0-46.0); Hemoglobin 7.5 g/dL (12.2-16.2); Nucleated Red Blood Cells % 0.0 %
[2025-04-22 07:48] LABS: Mean Corpuscular Hemoglobin 36.9 pg (28.0-32.0); Mean Corpuscular Volume 108.4 fL (80.0-100.0)
[2025-04-22 07:57] LABS: Alanine Aminotransferase 19 U/L (7-40); Anion Gap 12 (5-15); BUN/Creatinine Ratio 23.8 (10.0-20.0); Blood Urea Nitrogen 10 mg/dL (9-23); Carbon Dioxide 21 mmol/L (20-31)
[2025-04-22 07:59] LABS: Bilirubin, Total 1.2 mg/dL (0.2-1.0)
[2025-04-22 08:05] LABS: Chloride 113 mmol/L (98-107); Glucose 107 mg/dL (74-106); Potassium 3.3 mmol/L (3.5-5.1); Sodium 146 mmol/L (136-145)
[2025-04-22 08:06] LABS: Albumin 2.2 g/dL (3.2-4.8); Alkaline Phosphatase 126 U/L (46-116); Calcium 7.5 mg/dL (8.7-10.4); Total Protein 4.5 g/dL (5.7-8.2)
[2025-04-22 08:42] LABS: Iron 52.0 ug/dL (50-170)
[2025-04-22 08:49] LABS: COVID19 ANTIGEN SOFIA FIA NEGATIVE (NEGATIVE)
[2025-04-22 08:52] LABS: Total Iron Binding Capacity 122.0 ug/dL (250-425)
[2025-04-22] MEDS: PANTOPRAZOLE 40 MG/10 ML VIAL INJ IV SCH (10:08)
[2025-04-22] MEDS: AZITHROMYCIN 250 MG TAB PO SCH (10:08)
[2025-04-22] MEDS: MORPHINE SULF 15mg ER tab PO ONE (11:55)
[2025-04-22] MEDS: HYDROcodone-ACET 10/325MG TAB PO PRN (14:46)
[2025-04-22] MEDS: VANCOMYCIN 1.25GM/250ML 250 ML IV SCH (15:33)
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
[2025-04-22] MEDS: POTASSIUM EFFERVESENT TAB 25 MEQ PO ONE (17:50)
[2025-04-22] MEDS ORDERED: MORPHINE SULF 15mg ER tab PO SCH (22:00)
[2025-04-22] MEDS: MORPHINE SULF 15mg ER tab PO SCH (22:33)
[2025-04-22] MEDS: ONDANSETRON HCL 4 MG/2 ML VIAL IV PRN (22:47)
[2025-04-23] VITALS (8 sets, daily range): BP systolic 90–115; BP diastolic 64–83; PULSE 62–94; RESP 14–18; TEMP 97.7–98.7; O2SAT 94–96
[2025-04-23 07:37] LABS: Hematocrit 24.5 % (36.0-46.0); Hemoglobin 8.0 g/dL (12.2-16.2); Mean Corpuscular Hemoglobin 36.7 pg (28.0-32.0); Mean Corpuscular Volume 111.7 fL (80.0-100.0); Nucleated Red Blood Cells % 0.1 %
[2025-04-23 08:01] LABS: Alanine Aminotransferase 25 U/L (7-40); Anion Gap 10 (5-15); BUN/Creatinine Ratio 18.2 (10.0-20.0); Blood Urea Nitrogen 10 mg/dL (9-23); Carbon Dioxide 22 mmol/L (20-31); Magnesium 1.9 mg/dL (1.6-2.6); Potassium 4.0 mmol/L (3.5-5.1); Sodium 142 mmol/L (136-145)
[2025-04-23 08:02] LABS: Albumin 2.5 g/dL (3.2-4.8); Alkaline Phosphatase 143 U/L (46-116); Bilirubin, Total 0.9 mg/dL (0.2-1.0); Calcium 8.0 mg/dL (8.7-10.4); Chloride 110 mmol/L (98-107); Glucose 180 mg/dL (74-106); Total Protein 5.3 g/dL (5.7-8.2)
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
[2025-04-24] VITALS (8 sets, daily range): BP systolic 113–128; BP diastolic 83–90; PULSE 60–75; RESP 15–18; TEMP 97.2–98.6; O2SAT 95–99
[2025-04-24] MEDS ORDERED: VANCOMYCIN 1GM/250ML KIT 250 ML IV SCH (04:00)
[2025-04-24] MEDS: AZITHROMYCIN 250 MG TAB PO ONE (04:22)
[2025-04-24] MEDS: CLINDAMYCIN 900MG IV 50 ML IV ONE (04:54)
[2025-04-24] MEDS: PANTOPRAZOLE 40 MG/10 ML VIAL INJ IV ONE ×2 (04:54→04:55)
[2025-04-24] MEDS: CALCIUM GLUC 1,000mg/50ml-NS 50 ML IV ONE (04:54)
[2025-04-24] MEDS: PANTOPRAZOLE 40 MG TAB PO ONE (04:54)
[2025-04-24] MEDS: HYDROMORPHONE HCL 1 MG/ML INJ ONE (04:54)
[2025-04-24] MEDS: MORPHINE SULF 15mg ER tab PO ONE ×2 (04:55→04:56)
[2025-04-24] MEDS: VANCOMYCIN 1.5GM/250ML 250 ML IV ONE (04:55)
[2025-04-24] MEDS: ALBUMIN 25% 100 ML IV ONE (04:55)
[2025-04-24] MEDS: KETOROLAC TROMETH 30 MG/ML 1ML VIAL ONE (04:55)
[2025-04-24] MEDS: HYDROcodone-ACET 10/325MG TAB ONE ×4 (04:56→04:57)
[2025-04-24] MEDS: POTASSIUM EFFERVESENT TAB 25 MEQ ONE (04:56)
[2025-04-24] MEDS: VANCOMYCIN 1.25GM/250ML 250 ML IV ONE ×2 (04:57)
[2025-04-24 07:27] LABS: Hemoglobin 8.6 g/dL (12.2-16.2)
[2025-04-24 07:29] LABS: Hematocrit 26.1 % (36.0-46.0); Mean Corpuscular Hemoglobin 36.0 pg (28.0-32.0); Mean Corpuscular Volume 109.0 fL (80.0-100.0)
[2025-04-24 08:25] LABS: Anisocytosis Slight; Macrocytosis Moderate; Total Cells Counted 100.0 (100)
[2025-04-24] MEDS: LACTATED RINGER'S 1,000 ML IV SCH (12:45)
--- NOTE | 2025-04-24 12:50 | DVHPN2 ---
Subjective Patient continues to report having rib pain Reviewed: Care Plan, H&P, Labs, Medications Changes from previous H/P or p: No Changes General: Per HPI Objective Vitals Vital Signs Date Time Temp Pulse Resp B/P (MAP) Pulse Ox O2 Delivery O2 Flow Rate FiO2 04/24/25 09:00 98.2 73 16 116/83 (94) 95 98.2 04/24/25 08:00 Room Air* 0 21 Intake/Output Intake and Output 04/24/25 07:00 Intake Total 2430 ml Output Total 50 ml Balance 2380 ml Intake Oral 880 ml IV Total 1550 ml Output Urine Total 0 ml Drainage Total 50 ml # Voids 3 # Bowel Movements 2 General Appearance: Alert, Oriented X3, Cooperative, No acute distress HEENT: Atraumatic, PERRLA Lungs: Clear to auscultation, Normal air movement Cardiovascular: Normal S1, Normal S2 Abdomen: Normal bowel sounds, Soft, No tenderness, No masses Genitourinary: No Apparent Abnormalities Musculoskeletal: Normal sensory function, Normal motor function Neuro: Normal gait, Normal speech Skin: Dry, Intact Psych/Mental Status: Mental status NL, Mood NL Medications Current Medications Medications Dose Ordered Sig/Kelvin Route Start Time Stop Time Status Last Admin Dose Admin Vancomycin HCl 0 ml @ 0 mls/hr PER PHARMACY IV 04/21/25 18:30 Ceftriaxone Sodium 50 ml @ 100 mls/hr DAILY@09 IV 04/22/25 09:00 04/24/25 09:22 100 MLS/HR Azithromycin 500 mg DAILY PO 04/22/25 10:00 04/24/25 09:22 500 MG Hydrocortisone Sodium Succinate 50 mg Q6HR IV 04/22/25 00:00 04/24/25 11:59 50 MG Lactated Ringer's 1,000 ml @ 100 mls/hr Q10H IV 04/21/25 18:30 04/23/25 09:08 100 MLS/HR Pantoprazole Sodium 40 mg DAILY IV 04/22/25 10:00 04/24/25 09:22 40 MG Ondansetron HCl 4 mg Q6HPRN PRN IV 04/21/25 18:30 04/23/25 11:58 4 MG Acetaminophen/ Hydrocodone Bitart 1 tab Q4HP PRN PO 04/22/25 11:15 04/24/25 03:39 1 TAB Vancomycin HCl 250 ml @ 200 mls/hr Q12H IV 04/22/25 16:00 04/24/25 04:19 200 MLS/HR Morphine Sulfate 15 mg Q12HR PO 04/22/25 22:00 04/24/25 09:22 15 MG Laboratory Results Laboratory Tests 04/23/25 06:41 04/24/25 06:24 Urinalysis Test 04/21/25 20:05 Urine Color Light-yellow (Yellow) Urine Clarity Clear (Clear) Urine pH 6.5 (5.0-9.0) Urine Specific [place] 1.015 (1.001-1.035) Urine Protein Negative (Negative) Urine Ketones Negative (Negative) Urine Blood Negative /uL (Negative) Urine Nitrite Negative (Negative) Urine Bilirubin Negative (Negative) Urine Urobilinogen Normal mg/dL (Negative) Urine Leukocyte Esterase Negative /uL (Negative) Urine RBC <1 /hpf (0 - 4) Urine Microscopic WBC 3 /HPF (0-5) Urine Squamous Epithelial Cells Few /hpf (<5) Urine Bacteria None seen /hpf (None Seen) Urine Glucose Normal mg/dL (Normal) Microbiology Microbiology Date/Time Source Procedure Growth Status 04/21/25 18:25 Abdomen Gram Stain - Final Complete 04/21/25 18:25 Wound Culture - Final Escherichia coli Enterococcus faecalis Complete 04/21/25 15:54 Blood Blood Culture - Preliminary NO GROWTH AFTER 48 HOURS OF INCUBATION. Resulted Labs and/or images reviewed: Labs reviewed by me, Image(s) reviewed by me Assessment/Plan Assessment/Plan Impression: -cellulitis to surgical wound with E coli MDRO and Enterococcus faecalis -fractures 3rd, 4th, 5th ribs -Humphreys's disease -moderate protein malnutrition -obesity -abdominal wound dehiscence Plan: -continue vancomycin, stop ceftriaxone and changed to cefepime -continue hydrocortisone -advance diet as tolerated -surgical consultation with Dr. Monroy -physical therapy -wound dressing daily Total time spent with patient discussing and formulating plan of care: 35 minutes. This medical document was created using an electronic medical record system with [employer] system. Although this document has been carefully reviewed, there may still be some phonetic and typographical errors. These areas are purely typographical due to imperfections of the software programs, and do not reflect any compromise in the patient's medical care. Plan discussed with: Patient, Other (RN) My Orders Orders - SALBINO,EDEN [employer] Procedure Category Date Status Time Lactated Ringers Lr PHA 04/24/25 Transmitted 12:45 Cefepime 2gm Extended PHA 04/24/25 Transmitted Infusion 22:00 Date of Service: Apr 24, 2025 Billing Provider: KAREY CUELLO NP Common Visit Codes: [id number] INP/OBS CARE(HIGH) KAREY CUELLO NP Apr 24, 2025 12:50
--- NOTE | 2025-04-24 15:06 | MEDREC ---
[facility] Intervention Section I [facility] Intervention: Review juliet of ABX 48h AIO (PLEASE CONSIDER D/C AZITHROMYCIN IN ABSENCE OF PNEUMONIA) TRINI BANKS PHARMACIST Apr 24, 2025 15:06
[2025-04-24] MEDS: CEFEPIME 2GM/50ML NS 50 ML IV SCH (20:44)
[2025-04-25] VITALS (7 sets, daily range): BP systolic 110–141; BP diastolic 78–105; PULSE 58–69; RESP 16–18; TEMP 36.6; O2SAT 94–99
[2025-04-25] MEDS ORDERED: AMPI500C9 PO (13:22)
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
== END 2025-04-25 19:15 | disposition home health service (06) | DRG 871 ==
LOC: ER 08:22 → EDBD 08:22 → OVERFLOW 18:25 → TELE-EAST 23:47
PROVIDERS: ADMIT Nurse Practitioner Acute Care; ATTEND Nurse Practitioner Acute Care
PROC: 05HF33Z Insertion of Infusion Device into Left Cephalic Vein, Percutaneous Approach (ICD-10-PCS; principal; 2025-04-25)
PROC: B54NZZA Ultrasonography of Left Upper Extremity Veins, Guidance (ICD-10-PCS; 2025-04-25)
DX: A41.9 Sepsis, unspecified organism (principal); J18.9 Pneumonia, unspecified organism; S22.42XA Multiple fractures of ribs, left side, initial encounter for closed fracture; E44.0 Moderate protein-calorie malnutrition; G61.0 Guillain-Barre syndrome; T81.31XA Disruption of external operation (surgical) wound, not elsewhere classified, initial encounter; E88.09 Other disorders of plasma-protein metabolism, not elsewhere classified; L03.311 Cellulitis of abdominal wall; T81.41XA Infection following a procedure, superficial incisional surgical site, initial encounter; B95.2 Enterococcus as the cause of diseases classified elsewhere; B96.20 Unspecified Escherichia coli [E. coli] as the cause of diseases classified elsewhere; I10 Essential (primary) hypertension; J45.909 Unspecified asthma, uncomplicated; E66.9 Obesity, unspecified; K76.0 Fatty (change of) liver, not elsewhere classified; D53.9 Nutritional anemia, unspecified; E27.1 Primary adrenocortical insufficiency; Z68.29 Body mass index [BMI] 29.0-29.9, adult; Z16.24 Resistance to multiple antibiotics; Z20.822 Contact with and (suspected) exposure to COVID-19; K21.9 Gastro-esophageal reflux disease without esophagitis; G47.30 Sleep apnea, unspecified; V89.2XXA Person injured in unspecified motor-vehicle accident, traffic, initial encounter; Y92.89 Other specified places as the place of occurrence of the external cause; Y93.89 Activity, other specified; Y99.8 Other external cause status; Y83.8 Other surgical procedures as the cause of abnormal reaction of the patient, or of later complication, without mention of misadventure at the time of the procedure
CPT/HCPCS: 36415; 71045; 71250; 74177; 80048; 80053; 80202; 80307; 81001; 82565; 82607; 82746; 83540; 83550; 83605; 83615; 83690; 83735; 84484; 85007; 85014; 85018; 85025; 85027; 85045; 86850; 86900; 86901; 87040; 87077; 87081; 87186; 87205; 87426; 87804; 96365; 96375; 97163; 99291; G0378; J0692; J1885; J2405; J2470; J3490; P9047